=== PATIENT | male | born 1955 | race Caucasian/White ===

== ENCOUNTER → 2017-11-29 09:52 | Outpatient (CLI) | payer OTHER, SELFPAY ==
[2017-11-29 12:18] LABS: Anion Gap 6 (5-15); BUN 19 mg/dL (7-18); BUN/Creat Ratio 20.1 RATIO (10-20); Calcium,Total 8.8 mg/dL (8.5-10.1); Chloride 106 mmol/L (98-107); Cholesterol 158 mg/dL (200); Creatinine, Serum 0.95 mg/dL (0.70-1.30); EST Glomerular Filtration Rate 86 mL/min (>60); Est Glom Filt Rate - Afr Amer 104 mL/min (>60); Glucose 119 mg/dL (74-106); Hemoglobin A1c 7.1 % (4.2-6.3); High Density Lipoprotein 37 mg/dL; PSA,Total - Annual Screen 0.35 ng/mL (0.00-4.00); Potassium 3.7 mmol/L (3.5-5.1); Sodium Level 140 mmol/L (136-145); Triglycerides 81 mg/dL; Very Low Density Lipoprotein 16 mg/dL (5-40)
== END ==
PROVIDERS: Visit Provider Family Medicine
DX: E11.9 Type 2 diabetes mellitus without complications (principal); Z12.5 Encounter for screening for malignant neoplasm of prostate
CPT/HCPCS: 36415; 80048; 80061; 83036; 84153; G0103

== ENCOUNTER → 2018-11-27 | Outpatient (CLI) | payer OTHER, SELFPAY ==
[2017-03-02 06:31] VITALS: BMI 29.4
[2018-11-27 12:47] LABS: Anion Gap 7 (5-15); BUN 18 mg/dL (7-18); Calcium,Total 8.7 mg/dL (8.5-10.1); Chloride 106 mmol/L (98-107); Cholesterol 140 mg/dL (200); EST Glomerular Filtration Rate 81 mL/min (>60); Est Glom Filt Rate - Afr Amer 97 mL/min (>60); Glucose 239 mg/dL (74-106); High Density Lipoprotein 31 mg/dL; Potassium 4.1 mmol/L (3.5-5.1); Sodium Level 139 mmol/L (136-145); Triglycerides 201 mg/dL; Very Low Density Lipoprotein 40 mg/dL (5-40)
[2018-11-27 12:54] LABS: Hemoglobin A1c 8.3 % (4.2-6.3)
[2018-11-27 14:37] LABS: PSA,Total - Annual Screen 0.23 ng/mL (0.00-4.00)
== END | disposition home or self-care (01) ==
LOC: MFPLAB 10:58
PROVIDERS: PCP Family Medicine; Visit Provider Family Medicine
DX: E11.9 Type 2 diabetes mellitus without complications (principal); Z12.5 Encounter for screening for malignant neoplasm of prostate
CPT/HCPCS: 36415; 80048; 80061; 83036; 84153; G0103

== ENCOUNTER → 2019-09-03 10:09 | Outpatient (CLI) | payer OTHER, SELFPAY ==
[2017-03-02 06:31] VITALS: BMI 29.4
[2019-09-03 12:27] LABS: ALB/GLOB Ratio 1.2 RATIO (0.9-2.4); AST(SGOT) 14 U/L (15-37); Alanine Aminotransfer ALT/SGPT 26 U/L (16-61); Alkaline Phosphatase 78 U/L (45-117); Anion Gap 5 (5-15); BUN 19 mg/dL (7-18); BUN/Creat Ratio 18.8 RATIO (10-20); Calcium,Total 9.2 mg/dL (8.5-10.1); Chloride 105 mmol/L (98-107); Cholesterol 146 mg/dL (200); Creatinine, Serum 1.01 mg/dL (0.70-1.30); EST Glomerular Filtration Rate 79 mL/min (>60); Est Glom Filt Rate - Afr Amer 96 mL/min (>60); Globulin 3.3 g/dL (2.2-4.2); Glucose 181 mg/dL (74-106); High Density Lipoprotein 35 mg/dL; Potassium 3.6 mmol/L (3.5-5.1); Protein, Total 7.3 g/dL (6.4-8.2); Sodium Level 140 mmol/L (136-145); Triglycerides 149 mg/dL; Very Low Density Lipoprotein 30 mg/dL (5-40)
[2019-09-03 12:31] LABS: Hemoglobin A1c 8.8 % (4.2-6.3)
[2019-09-03 12:47] LABS: Microalbumin,Random Urine 10.7 mg/L (NO RANGE EST.); Microalbumin:Creatinine Ratio 11.2 mg/g CRE (<30 mg/g CRE)
== END ==
PROVIDERS: PCP Family Medicine; Referring Provider Family Medicine; Visit Provider Family Medicine
DX: E11.9 Type 2 diabetes mellitus without complications (principal); E66.9 Obesity, unspecified
CPT/HCPCS: 36415; 80053; 80061; 82043; 82570; 83036

== ENCOUNTER 2020-09-30 12:08 | Outpatient (CLI) | payer OTHER, SELFPAY ==
[2020-09-30 12:29] VITALS: BP 131/85; PULSE 69; RESP 18; TEMP 36.7; O2SAT 93; BMI 29.2
[2020-09-30 13:18] VITALS: BP 121/72; PULSE 62; RESP 16; TEMP 36.6; O2SAT 95
[2020-09-30 13:48] VITALS: BP 125/76; PULSE 59; RESP 16; TEMP 36.6; O2SAT 95
[2020-09-30 14:10] VITALS: BP 136/79; PULSE 60; RESP 16; TEMP 36.4; O2SAT 97
[2020-09-30 14:40] VITALS: BP 132/75; PULSE 58; RESP 16; TEMP 36.4; O2SAT 98
[2020-09-30 15:10] VITALS: BP 129/75; PULSE 61; RESP 16; TEMP 36.4; O2SAT 96
== END 2020-09-30 15:17 | disposition home or self-care (01) ==
LOC: MS2OUT 12:08 → MS2 12:08
PROVIDERS: PCP Family Medicine; Referring Provider Nurse Practitioner Acute Care; Visit Provider Nurse Practitioner Acute Care
DX: U07.1 COVID-19 (principal)
CPT/HCPCS: J7050; M0239; Q0245

== ENCOUNTER → 2023-06-13 | Outpatient (CLI) | payer MEDICARE, OTHER, SELFPAY | END | disposition home or self-care (01) | PROVIDERS: PCP Family Medicine; Visit Provider Nurse Practitioner | DX: T14.8XXA Other injury of unspecified body region, initial encounter (principal) | CPT/HCPCS: 87070; 87075; 87205 ==

== ENCOUNTER 2023-06-22 06:58 | Outpatient (RCR) | payer MEDICARE, OTHER, SELFPAY ==
[2023-06-22 08:17] VITALS: BP 177/67; PULSE 59; RESP 18; TEMP 36.1
--- NOTE | 2023-06-22 12:38 | PCM.WC.PN ---
History of Present Illness Date of Service: 06/22/23 Chief Complaint: Follow-up right fragoso traumatic wound History of Wound: This is a 68-year-old white male that was kicked in the fragoso by a steer and developed a open wound for about 3 to 4 weeks and I saw him in my office. That was 2 weeks ago. Patient was cultured which was negative and started on calcium alginate with Adaptic over top and compression stockings at that point I had Kaden wrap to him and told him to buy compression stockings. He states that he has been doing that and the measurements it looks good it still looks some depth and cleaning out still has some slough in it like it did the first time I met him. Progress of Wound: Today we are going to switch him over to Zulema with Adaptic over top and compression stockings Subjective Subjective Was agreeable Objective Data Objective Data The wound looks good has a little depth small amount of slough but nothing worsening. States the pain is better. And also wearing his compression stockings on a daily basis Vital Signs: Vital Signs Temp Pulse Resp BP 97 F L 59 L 18 177/67 H 06/22/23 08:17 06/22/23 08:17 06/22/23 08:17 06/22/23 08:17 Physical Exam Const oriented x3 General Appearance: cooperative Exam Limitations: no limitations HEENT normocephalic Head and Scalp: normal to inspection Eyes PERRL Resp normal respiratory effort Effort and Inspection: able to speak in complete sentences Auscultation: clear to auscultation bilaterally Cardio regular rate and regular rhythm Palpation: normal PMI Rate: regular rate Rhythm: regular rhythm GI Auscultation: normoactive bowel sounds Palpation: soft and no hepatosplenomegaly Extremity General Extremity: normal exam except as noted Skin no rashes or lesions noted Trauma: other Open wound nonhealing from a kick from a steer Neuro oriented x3 Psych Appearance: grossly normal Speech: normal speech Thought Content: normal thought content Judgement: judgement good Debridement Note Debridement Note Wound debrided: Right fragoso traumatic wound Type of Debridement: Excisional debridement Anesthesia Used: 5% Lidocaine Gel Depth: Down to and including healthy tissue Percentage of wound debrided: 100 Instrument Used: 3mm curette Tissue Removed: Slough Severity: Fat Layer Exposed Amount of bleeding with debridement: Mild Bleeding Controlled with: Compression and gauze Patient tolerated procedure: Patient tolerated procedure well Post-Debridement Measurements and Additional Note: Post-Debridement Measurements/Treatment WC - Nurse 1 - General Ulcer Assessment Start: 06/22/23 08:16 Freq: Status: Active Protocol: DANIELA Activity Type Activity Date Activity User E-sign Co-sign Detail Recorded Client Recorded Date Recorded By Document 06/22/23 08:17 RB Desktop 06/22/23 08:32 RB 06/22/23 08:17 WC - Today's Visit Information Type of service Initial Visit Arrival Mode Ambulatory Transfer Assistance None Patient Identification Verified (Name & Yes ) Patient Requires Transmission-Based No Precautions Vital Signs Temperature (97.8 F-99.1 F) 97 F L Temperature Source Temporal Pulse Rate (60-100) 59 L Pulse Location Monitor Respiratory Rate (12-18) 18 Respiratory rate source Observation Blood Pressure (90/60-120/80) 177/67 H Blood Pressure Mean (mm Hg) 103 Source Monitor Position Semi-Fowlers Blood Pressure Location Left Arm History Since Last Visit- (Skip if this is Patient's initial visit) Have you changed medications since your No last visit? Any new allergies or adverse reactions No Had a fall/change in ADL's that may No increase risk of falls Signs or symptoms of abuse and/or No neglect since last visit Have you been in the hospital since your No last visit? Has dressing in place as prescribed Yes Has compression in place as prescribed No Has offloadiing in place as prescribed No Experienced any changes in pain level or No management Pain Scale: 0-10 Numeric Is Patient Pain Free? Yes Lower Extremity Assessment/ Foot Assessment/ Toe Nail Assessment Right -Posterior Tibial Palpable Yes -Posterior Tibial Doppler Multiphasic -Dorsalis Pedis Palpable Yes -Dorsalis Pedis Doppler Multiphasic -Extremity Color Normal -Hair Growth on Legs Yes -Hair Growth on Toes No -Temperature of Extremity Warm -Capillary Refill Less than 3 Seconds -Dependent Rubor No -Blanched when Elevated No -Lipodermatosclerosis No -Other Deformity No -Prior Foot Ulcer No -Charcot Joint No -Prior Amputation No -Thick No -Discolored No -Deformed No -Improper Length & Hygeine Yes Left -Posterior Tibial Palpable Yes -Posterior Tibial Doppler Multiphasic -Dorsalis Pedis Palpable Yes -Dorsalis Pedis Doppler Multiphasic -Extremity Color Normal -Hair Growth on Legs Yes -Hair Growth on Toes No -Temperature of Extremity Warm -Capillary Refill Less than 3 Seconds -Dependent Rubor No -Blanched when Elevated No -Lipodermatosclerosis No -Other Deformity No -Prior Foot Ulcer No -Charcot Joint No -Prior Amputation No -Thick No -Discolored No -Deformed No -Improper Length & Hygeine Yes Neuropathy Assessment Feet - Top Side and Bottom <Entered> (a) Communication Assessment Preferred language Citizen Of [place] Structural Layout Worker Required No Able to Read Yes Able to Write Yes Communication Tools None Caregiver Communication Skills No Impairment Impairment Right Hearing Abillity Normal Left Hearing Abillity Normal Visual Assistive Devices Glasses Teaching Assessment Preferences Verbal,Written Barriers to Learning None Readiness To Learn Good Willingness to Engage in Self Management Med Activies Readiness to Engage in Self Management Med Activities Anxiety Level Calm Cooperation Cooperative Perception Coherent Interest in Health Problem Asks Questions Education Importance Acknowledges Need Does Patient Smoke tobacco or other No substances Smoking Status Never smoker Is Patient Diabetic Yes Functional Assessment Recent Decline in Ability to Perform Denies Any Declines Assistive Device With Patient No Culture/[place]ian/Care Management Coordinator Cultural/[place]eterian Needs that may affect No Treatment Plan Would you allow our hospital combined rail operator to No meet you for the purpose of spiritual/ emotional support? Care Management Coordinator to contact place of synagogue No Teaching: Wound Center *Welcome to the Wound Center -Person Taught Patient -Teaching Method Discussion, Demonstration -Response to teaching Verbalize understanding (a) 1 - + throughout WC - Nurse 1 - General Ulcer Measurement Start: 06/22/23 08:16 Freq: Status: Active Protocol: Activity Type Activity Date Activity User E-sign Co-sign Detail Recorded Client Recorded Date Recorded By Document 06/22/23 08:17 Desktop 06/22/23 08:32 RB 06/22/23 08:17 Wound Center Nurse 1 1.R fragoso -Combined with other wound No -Current Size (cm) - Length 0.6 -Current Size (cm) - Width 0.8 -Current Size (cm) - Depth 0.2 -Total Square Cm 0.48 -Photo Taken Yes -Tunneling No -Undermining/Tunneling No -Circular Undermining No -Exudate Amt Medium -Exudate Type Serosanguineous -Wound Margin Distinct, Outline Attached -Granulation Amt Medium (34-66%) -Granulation Quality [place] -Slough/Fibrin Yes -Necrosis Amt Medium (34-66%) -Necrotic Tissue Type Adherent Slough -Structure Exposed N/A -Texture (Bobbi-wound Skin Appearance) Assessed -Moisture (Bobbi-wound Skin Appearance) Assessed -Color (Bobbi-wound Skin Appearance) Assessed, Erythema -Temperature (Bobbi-wound Skin No Abnormality Appearance) (Pt Warm) -Tenderness on Palpation (Bobbi-wound No Skin Appearance) -Ulcer Cleansing Wound Cleanser -Foul Odor after Cleansing No -Anesthetic Used 5% Lidocaine Gel Lower Limb Edema Present Yes Right Calf (cm) 39.5 Right Ankle (cm) 23.5 Left Calf (cm) 41 Left Ankle (cm) 23.5 RIAZ - Nurse 2 - General Ulcer CM Notes Start: 06/22/23 08:16 Freq: Status: Active Protocol: Activity Type Activity Date Activity User E-sign Co-sign Detail Recorded Client Recorded Date Recorded By Document 06/22/23 08:43 RB Desktop 06/22/23 08:46 RB 06/22/23 08:43 Wound Center Nurse 2 1.R fragoso -Time 08:44 -Correct Patient Yes -Correct Side, Site, Position Yes -Correct Procedure Yes -Procedure Performed Yes -Type of Procedure Debridement -Clinical Debridement Subcutaneous -Tissue Removed Subcutaneous -Post Debridement (cm) - Length 0.6 -Post Debridement (cm) - Width 0.9 -Post Debridement (cm) - Depth 0.2 -Total Square (Post) (cm) 0.54 -Area of Debridement (cm) - Length 0.6 -Area of Debridement (cm) - Width 0.9 -Total Square (Area) (cm) 0.54 -Tunneling No -Undermining/Tunneling No -Circular Undermining No -Wound/Ulcer Outcome Not Healed -Ulcer Cleansing Rinsed/ Irrigated with Saline -Foul Odor after Cleansing No -Bioengineered Tissue No -Bleeding Controlled with Pressure -Treatment Response Procedure Tolerated Well -Offloading No -Debridement - Subq, 1st 20sq cm Yes Pain Scale: 0-10 Numeric Is Patient Pain Free? Yes - Nurse 3 - General Ulcer D/C NN Start: 06/22/23 08:16 Freq: Status: Active Protocol: Activity Type Activity Date Activity User E-sign Co-sign Detail Recorded Client Recorded Date Recorded By Document 06/22/23 08:54 RB Desktop 06/22/23 08:55 RB 06/22/23 08:54 Wound Care Center Nurse 3 1.R fragoso -Ulcer Cleansing Not Cleansed -Foul Odor after Cleansing No -Primary Dressing Applied Mepilex Border, NonAdherent Contact Layer, Promogran -Mepilex Border 1 -Promogran 1 Pain Scale: 0-10 Numeric Is Patient Pain Free? Yes Teaching: Wound Center Keeping legs elevated -Person Taught Patient -Teaching Method Discussion -Response to teaching Verbalize understanding Dressing Your Wound -Person Taught Patient -Teaching Method Discussion, Demonstration -Response to teaching Verbalize understanding WC - Visit Discharge Discharge Condition Stable Ambulatory Status Ambulatory Transportation Private Auto Medication Reconcilliation completed & Yes provided to patient/care provider Clinical Summary of Care Provided Yes Assessment/Plan Assessment/Plan (1) Traumatic skin ulcer with fat layer exposed: CODE(S): L98.492 - Non-pressure chronic ulcer of skin of other sites with fat layer exposed (2) Nonhealing nonsurgical wound: CODE(S): T14.8XXA - Other injury of unspecified body region, initial encounter PLAN: Wash right fragoso with antibacterial soap and water apply the Zulema to the wound base cover with Adaptic and then I a foam dressing every day Wear compression stockings every day Follow-up in 3 weeks
== END 2023-06-30 23:59 | disposition home or self-care (01) ==
LOC: WC 06:58
PROVIDERS: PCP Family Medicine; Referring Provider Family Medicine; Visit Provider Nurse Practitioner
DX: L97.812 Non-pressure chronic ulcer of other part of right lower leg with fat layer exposed (principal); Z79.4 Long term (current) use of insulin; W55.22XA Struck by cow, initial encounter; Z79.899 Other long term (current) drug therapy
CPT/HCPCS: 11042; 99203; G0463

== ENCOUNTER 2023-07-13 08:01 | Outpatient (RCR) | payer MEDICARE, OTHER, SELFPAY ==
[2023-07-01 00:51] VITALS: BP 177/67; PULSE 59; RESP 18; TEMP 36.1
[2023-07-13 08:06] VITALS: BP 158/102; PULSE 63; RESP 20; TEMP 36.4
--- NOTE | 2023-07-13 09:57 | PN.PCM_ITS ---
History of Present Illness Date of Service: 07/13/23 Chief Complaint: Follow-up right fragoso traumatic wound History of Wound: This is a 68-year-old white male that was kicked in the fragoso by a steer and developed a open wound for about 3 to 4 weeks and I saw him in my office. That was 2 weeks ago. Patient was cultured which was negative and started on calcium alginate with Adaptic over top and compression stockings at that point I had Kaden wrap to him and told him to buy compression stockings. He states that he has been doing that and the measurements it looks good it still looks some depth and cleaning out still has some slough in it like it did the first time I met him. Progress of Wound: Today the wound is healed patient be discharged from the wound center. Subjective Subjective Patient is very pleased with outcomes and has no concerns Objective Data Objective Data Objectives of met patient has resolved on his wound patient will be discharged from the wound center and follow-up as needed Vital Signs: Vital Signs Temp Pulse Resp BP 97.6 F L 63 20 H 158/102 H 07/13/23 08:06 07/13/23 08:06 07/13/23 08:06 07/13/23 08:06 Physical Exam Const oriented x3 General Appearance: cooperative Exam Limitations: no limitations HEENT normocephalic Head and Scalp: normal to inspection Eyes PERRL Resp normal respiratory effort Effort and Inspection: able to speak in complete sentences Auscultation: clear to auscultation bilaterally Cardio regular rate and regular rhythm Palpation: normal PMI Rate: regular rate Rhythm: regular rhythm GI Auscultation: normoactive bowel sounds Palpation: soft and no hepatosplenomegaly Extremity General Extremity: normal exam except as noted Skin no rashes or lesions noted Trauma: other Open wound nonhealing from a kick from a steer Neuro oriented x3 Psych Appearance: grossly normal Speech: normal speech Thought Content: normal thought content Judgement: judgement good Debridement Note Debridement Note No debridement was completed: No debridement was completed today Post-Debridement Measurements and Additional Note: Post-Debridement Measurements/Treatment RIAZ - Nurse 1 - General Ulcer Assessment Start: 07/13/23 08:06 Freq: Status: Active Protocol: DANIELA Activity Type Activity Date Activity User E-sign Co-sign Detail Recorded Client Recorded Date Recorded By Document 07/13/23 08:06 DL Desktop 12/13/23 08:10 07/13/23 08:06 - Today's Visit Information Type of service Follow-up 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 Any new allergies or adverse reactions No Had a fall/change in ADL's that may No increase risk of falls Signs or symptoms of abuse and/or No neglect since last visit Have you been in the hospital since your No last visit? Has dressing in place as prescribed Yes Has compression in place as prescribed Yes Has offloadiing in place as prescribed N/A Experienced any changes in pain level or No management Pain Scale: 0-10 Numeric Is Patient Pain Free? Yes - Nurse 1 - General Ulcer Measurement Start: 07/13/23 08:06 Freq: Status: Active Protocol: Activity Type Activity Date Activity User E-sign Co-sign Detail Recorded Client Recorded Date Recorded By Document 07/13/23 08:06 Desktop 07/13/23 08:10 07/13/23 08:06 Wound Center Nurse 1 1.R fragoso -Current Size (cm) - Length 0.2 -Current Size (cm) - Width 0.2 -Current Size (cm) - Depth 0.1 -Total Square Cm 0.04 -Photo Taken No -Exudate Amt Small -Exudate Type Serosanguineous -Wound Margin Distinct, Outline Attached -Granulation Amt Small (1-33%) -Granulation Quality Pale -Necrosis Amt Small (1-33%) -Necrotic Tissue Type Adherent Slough -Structure Exposed N/A -Texture (Bobbi-wound Skin Appearance) Scarring -Moisture (Bobbi-wound Skin Appearance) No Abnormality -Color (Bobbi-wound Skin Appearance) No Abnormality -Temperature (Bobbi-wound Skin No Abnormality Appearance) (Pt Warm) -Tenderness on Palpation (Bobbi-wound No Skin Appearance) -Ulcer Cleansing Rinsed/ Irrigated with Saline -Foul Odor after Cleansing No -Anesthetic Used 5% Lidocaine Gel Left Calf (cm) 38.5 Left Ankle (cm) 23.7 WC - Nurse 2 - General Ulcer CM Notes Start: 07/13/23 08:06 Freq: Status: Active Protocol: Activity Type Activity Date Activity User E-sign Co-sign Detail Recorded Client Recorded Date Recorded By Document 07/13/23 08:29 MW Desktop 07/13/23 08:30 MW 07/13/23 08:29 Wound Center Nurse 2 1.R fragoso -Time 08:29 -Correct Patient Yes -Correct Side, Site, Position Yes -Correct Procedure Yes -Procedure Performed No -Post Debridement (cm) - Length 0 -Post Debridement (cm) - Width 0 -Post Debridement (cm) - Depth 0 -Total Square (Post) (cm) 0 -Wound/Ulcer Outcome Healed- Epithelialized Pain Scale: 0-10 Numeric Is Patient Pain Free? Yes WC - Nurse 3 - General Ulcer D/C NN Start: 07/13/23 08:06 Freq: Status: Active Protocol: Activity Type Activity Date Activity User E-sign Co-sign Detail Recorded Client Recorded Date Recorded By Document 07/13/23 08:38 DL Desktop 07/13/23 08:38 DL 07/13/23 08:38 Wound Care Center Nurse 3 1.R fragoso -Ulcer Cleansing Rinsed/ Irrigated with Saline -Foul Odor after Cleansing No -Primary Dressing Applied Mepilex Border, Promogran Zulema Matter -Mepilex Border 1 -Promogran Zulema Matter 1 Treatment Response Procedure Tolerated Well Pain Scale: 0-10 Numeric Is Patient Pain Free? Yes WC - Visit Discharge Discharge Condition Stable Ambulatory Status Ambulatory Transportation Private Auto Assessment/Plan Assessment/Plan (1) Traumatic skin ulcer with fat layer exposed: CODE(S): L98.492 - Non-pressure chronic ulcer of skin of other sites with fat layer exposed (2) Nonhealing nonsurgical wound: CODE(S): T14.8XXA - Other injury of unspecified body region, initial encounter PLAN: Discharge from the wound center and follow-up as needed
== END 2023-07-14 16:14 | disposition home or self-care (01) ==
LOC: WC 08:01
PROVIDERS: PCP Family Medicine; Referring Provider Family Medicine; Visit Provider Nurse Practitioner
DX: Z09 Encounter for follow-up examination after completed treatment for conditions other than malignant neoplasm (principal); Z79.4 Long term (current) use of insulin
CPT/HCPCS: 99213; G0463

== ENCOUNTER 2025-02-22 06:19 | Day surgery (SDC) | payer MEDICARE, OTHER, SELFPAY ==
[2025-02-22] VITALS (8 sets, daily range): BP systolic 92–156; BP diastolic 59–80; PULSE 55–71; RESP 16–18; TEMP 36.3–36.8; O2SAT 94–96; BMI 30.8
--- OUTSIDE RECORDS SUMMARY | 2025-02-22 06:22 | XMS RPT_ITS | CCD ---
Author Organization [facility] Inform ion Partnership [facility] Care Team Providers Care Supervisor Throwing Department Name Role Phone Troy Monsivais MD Unavailable Keerthi Lyon Unavailable Unavailable Michaela Perry Unavailable Dot Trejo Unavailable Unavailable Keith ALLISON, Grecia Abad Primary Care Provider Keith ALLISON, Grecia Abad Primary Care Provider Keith ALLISON, Grecia Abad Primary Care Provider Keith ALLISON, Grecia Abad Primary Care Provider Keith ALLISON, Grecia Abad Primary Care Provider Kiersten ALLISON, Elizabeth Primary Care Provider [phone] TYRONE GAY Attending Unavailable GRECIA REYES Primary Care Unavailable TYRONE GAY Attending Unavailable KIERSTEN, CHALON Primary Care Unavailable TYRONE GAY Attending Unavailable KIERSTEN, CHALON Primary Care Unavailable TYRONE GAY Attending Unavailable KIERSTEN, CHALON Primary Care Unavailable TYRONE GAY Referring Unavailable KIERSTEN, CHALON Primary Care Unavailable Kiersten, Chalon Primary Care Unavailable Troy Monsivais Attending Unavailable Kiersten, Deangeloon Referring Unavailable Kiersten, Chalon Referring Unavailable Kiersten, Chalon Attending Unavailable Kiersten, Chalon Primary Care Unavailable Allergies Allergy Classification Reported Allergen(s) Allergy Type Date of Onset Reaction(s) Facility (6 sources) amoxicillin / clavulanate drug allergy 02-10-2017 rash [facility] Work Phone: (20 sources) cephalexin; Translations: [CEPHALEXIN] drug allergy 03-27-2014 Iam [facility] Work Phone: (6 sources) Penicillins (Antibiotic) drug allergy 02-10-2017 rash [facility] Work Phone: (5 sources) Penicillins; Translations: [PENICILLINS] Drug Allergy 03-27-2014 [facility] (20 sources) Penicillins Drug Allergy 03-27-[address] [facility] (3 sources) Amoxicillin Drug Allergy 09-30-2020 [facility] (3 sources) Clavulanate Drug Allergy 09-30-2020 [facility] (3 sources) Penicillins Allergy to substance 09-30-2020 [facility] (16 sources) Lisinopril; Translations: [LISINOPRIL] Drug Allergy 07-27-2023 [facility] Work Phone: (3 sources) Penicillins Drug Allergy 03-27-2014 [facility] (1 source) Amoxicillin Drug Allergy 02-19-2025 [facility] (1 source) Clavulanate Drug Allergy 02-19-2025 [facility] (1 source) Penicillins Drug allergy (disorder) 02-19-2025 [facility] Medications Current Medications Medication Drug Class(es) Dates Sig (Normalized) Sig (Original) amLODIPine 5 mg oral tablet (17 sources) Dihydropyridine Calcium Channel Amara Start: 09-09-2023 End: 04-17-2024 take 1 tablet by mouth once daily amLODIPine (NORVASC) 5 mg tablet Indications: Primary hypertension Take 1 tablet by mouth once daily. 90 tablet 3 04/17/2024 Active Comment on above: Take 1 tablet by gigi once daily. Blood-Glucose Meter,Continuous (DEXCOM G6 CEMENT MASON HELPER) misc (20 sources) Start: 11-02-2022 Blood-Glucose Meter,Continuous (DEXCOM G6 CEMENT MASON HELPER) misc Use continuously to monitor glucose, IDDM, E 10.9 1 Each 11/02/2022 Active Start: 11-02-2022 Blood-Glucose Meter,Continuous (DEXCOM G6 CEMENT MASON HELPER) misc Use continuously to monitor glucose, IDDM, E 10.9 1 Each 0 11/02/2022 Active Comment on above: Use continuously to monitor glucose, IDDM, E 10.9 Blood-Glucose Sensor (DEXCOM G6 SENSOR) marquis (20 sources) Start: 09-09-2023 Blood-Glucose Sensor (DEXCOM G6 SENSOR) marquis Indications: Type 1 diabetes mellitus with hypoglycemia and without coma (HCC) Use one sensor every 10 days, IDDM, E 10.9 3 Each 11 09/09/2023 Active Start: 11-02-2022 End: 09-09-2023 Blood-Glucose Sensor (DEXCOM G6 SENSOR) marquis Use one sensor every 10 days, IDDM, E 10.9 3 Each 11 11/02/2022 09/09/2023 Discontinued Start: 11-02-2022 Blood-Glucose Sensor (DEXCOM G6 SENSOR) marquis Use one sensor every 10 days, IDDM, E 10.9 3 Each 11 11/02/2022 Active Comment on above: Use one sensor every 10 days, IDDM, E 10.9 Blood-Glucose Transmitter (DEXCOM G6 TRANSMITTER) marquis (20 sources) Start: 09-09-2023 Blood-Glucose Transmitter (DEXCOM G6 TRANSMITTER) marquis Indications: Type 1 diabetes mellitus with hypoglycemia and without coma (HCC) Use one transmitter every 3 months, IDDM, E 10.9 1 Each 09/09/2023 Active Start: 11-02-2022 End: 09-09-2023 Blood-Glucose Transmitter (D EXCOM G6 TRANSMITTER) marquis Use one transmitter every 3 months, IDDM, E 10.9 1 Each 11/02/2022 09/09/2023 Discontinued Start: 11-02-2022 Blood-Glucose Transmitter (DEXCOM G6 TRANSMITTER) marquis Use one transmitter every 3 months, IDDM, E 10.9 1 Each 11/02/2022 Active Comment on above: Use one transmitter every 3 months, IDDM, E 10.9 clindamycin 300 mg oral capsule (1 source) Lincosamide Antibacterial Start: 2022 End: 2022 take 1 capsule by mouth three times daily clindamycin (CLEOCIN) 300 mg capsule Take 1 capsule by mouth three times a day for 7 days. 21 capsule 0 05/30/2023 06/06/2023 Active Comment on above: Take 1 capsule by [facility] three times a day for 7 days. glucagon 3 mg nasal powder (20 sources) Antihypoglycemic Agent Start: 2022 End: 2023 glucagon (BAQSIMI) 3 mg/actuation nasal spray Indications: Type 1 diabetes mellitus with hypoglycemia and without coma (HCC) Use 1 Hext in the nose as needed. May repeat after 15 minutes using a new device if there is no response. 2 Each 2 09/09/2023 Active Comment on above: Use 1 Hext in the n ose as needed. May repeat after 15 minutes using a new device if there is no response. 1.5 ml insulin glargine 300 unt/ml pen injector (20 sources) Insulin Analog Start: 2024 inject 8 [IU] by subcutaneous injection once daily in the morning insulin glargine U-300 conc (TOUJEO SOLOSTAR U-300 INSULIN) 300 unit/mL (1.5 mL) Inject 8 Units subcutaneously every morning. If insulin pump fails 1.5 mL 1 10/19/2024 Active Start: 09-24-2022 End: 10-19-2024 inject 10 [IU] by subcutaneous injection once daily in the morning insulin glargine U-300 conc (TOUJEO SOLOSTAR U-300 INSULIN) 300 unit/mL (1.5 mL) Indications: Type 1 diabetes mellitus without complication (HCC) Inject 10 Units subcutaneously every morning. If insulin pump fails 3 Each 3 12/01/2022 10/19/2024 Discontinued Start: 05-28-2022 End: 09-24-2022 inject 14 [IU] by subcutaneous injection once daily in the morning insulin glargine U-300 conc (TOUJEO SOLOSTAR U-300 INSULIN) 300 unit/mL (1.5 mL) Indications: Type 1 diabetes mellitus without complication (HCC) Inject 14 Units subcutaneously every morning. 3 Each 3 05/28/2022 09/24/2022 Discontinued (Adjust Sig - Block E-Cancel) Start: 11-25-2021 End: 05-28-2022 inject 12 [IU] by subcutaneous injection once daily in the morning insulin glargine U-300 conc (TOUJEO SOLOSTAR U-300 INSULIN) 300 unit/mL (1.5 mL) Indications: Type 1 diabetes mellitus without complication (HCC) Inject 12 Units subcutaneously every morning. 3 Pen 3 11/25/2021 05/28/2022 Discontinued Start: 05-20-2021 End: 11-25-2021 inject 15 [IU] by subcutaneous injection once daily at bedtime insulin glargine U-300 conc (TOUJEO SOLOSTAR U-300 INSULIN) 300 unit/mL (1.5 mL) Indications: Type 1 diabetes mellitus without complication (HCC) Inject 15 Units subcutaneously daily at bedtime. 6 Pen 3 05/20/2021 11/25/2021 Discontinued Start: 09-29-2020 Insulin Glargi ne U-300 Conc (Toujeo Max U-300 Solostar) 300 unit/mL (3 mL) insulin pen Active 18 UNIT SC DAILY September 29, 2020 12:00am Comment on above: Inject 15 Units subc utaneously daily at bedtime. Inject 12 Units subc utaneously every morning. Inject 14 Units subc utaneously every morning. Inject 10 Units subc utaneously every morning. Inject 10 Units subc utaneously every morning. If insulin pump fails 3 ml insulin lispro 100 unt/ml pen injector (20 sources) Insulin Analog Start: 09-09-2023 End: 04-17-2024 insulin lispro (HUMALOG U-100 INSULIN) 100 unit/mL injection Indications: Type 1 diabetes mellitus with hypoglycemia and without coma (HCC) Infuse up to 100 units daily via insulin pump 30 mL 11 04/17/2024 Active Start: 11-17-2022 End: 09-09-2023 insulin lispro (HUMALOG U-10 0 INSULIN) 100 unit/mL injection Infuse up to 100 units daily via insulin pump 30 mL 11 11/17/2022 09/09/2023 Discontinued Start: 08-10-2021 End: 10-19-2024 insulin lispro (HUMALOG KWIK PEN INSULIN) 100 unit/mL inject subcutaneously PER RATIO: BREAKFAST 1:5, LUNCH 1:8, DINNER1:6 PLUS SLIDING SCALE *MAX DAILY DOSE 60 UNITS*; if insulin pump fails 15 mL 1 10/19/2024 Active Start: 09-29-2020 Insulin Lispro (Humalog U-100 Insulin) 100 unit/mL cartridge Active 1 sliding scale dose SC Use as Directed September 29, 2020 12:00am Comment on above: inject subcutaneousl y PER RATIO: BREAKFAST 1:8, LUNCH 1:10, DINNER1:10 PLUS SLIDING SCALE *MAX DAILY DOSE 30 UNITS* inject subcutaneousl y PER RATIO: BREAKFAST 1:8, LUNCH 1:10, DINNER1:10 PLUS SLIDING SCALE *MAX DAILY DOSE 50 UNITS* inject subcutaneousl y PER RATIO: BREAKFAST 1:6, LUNCH 1:10, DINNER1:12 PLUS SLIDING SCALE *MAX DAILY DOSE 60 UNITS* Infuse up to 100 uni ts daily via insulin pump inject subcutaneousl y PER RATIO: BREAKFAST 1:6, LUNCH 1:10, DINNER1:12 PLUS SLIDING SCALE *MAX DAILY DOSE 60 UNITS*; if insulin pump fails insulin pump cart,auto,BT,G6/7 (OMNIPOD 5 G6-G7 PODS, GEN 5,) crtg (8 sources) Start: 08-21-2024 insulin pump cart,auto,BT,G6/7 (OMNIPOD 5 G6-G7 PODS, GEN 5,) crtg Indications: Type 1 diabetes mellitus with hypoglycemia and without coma (HCC) Use one pod every 72 hr 10 Each 11 08/21/2024 Active Start: 07-18-2024 End: 08-21-2024 insulin pump cart,auto,BT,G6 /7 (OMNIPOD 5 G6-G7 PODS, GEN 5,) crtg Indications: Type 1 diabetes mellitus with hypoglycemia and without coma (HCC) Use one pod every 72 hr 10 Each 11 07/18/2024 08/21/2024 Discontinued Start: 07-18-2024 insulin pump c art,auto,BT,G6/7 (OMNIPOD 5 G6-G7 PODS, GEN 5,) crtg Indications: Type 1 diabetes mellitus with hypoglycemia and without coma (HCC) Use one pod every 72 hr 10 Each 11 07/18/2024 Active lisinopril 20 mg oral tablet (9 sources) Angiotensin Converting Enzyme Inhibitor Start: 06-22-2023 take 20 mg by mouth once daily Lisinopril Active 20 MG PO DAILY June 22, 2023 12:00am Start: 04-29-2023 take 1 tablet by gigi th once daily lisinopril (ZESTRIL) 20 mg tablet Indications: Type 1 diabetes mellitus without complication (HCC) , Primary hypertension Take 1 tablet by mouth once daily. 90 tablet 3 04/29/2023 Active Start: 01-25-2023 End: 04-29-2023 take 1 tablet by mouth once daily lisinopril (ZESTRIL) 5 mg tablet Indications: Type 1 diabetes mellitus without complication (HCC) , Primary hypertension Take 1 tablet by mouth once daily. 90 tablet 3 01/25/2023 04/29/2023 Discontinued Comment on above: Take 1 tablet by gigi th once daily. valsartan 320 mg oral tablet (16 sources) Angiotensin 2 Receptor Amara Start: 3 End: take 1 tablet by mouth once daily valsartan (DIOVAN) 320 mg tablet Indications: Primary hypertension Take 1 tablet by mouth once daily. 90 tablet 3 04/17/2024 Active Comment on above: Take 1 tablet by gigi th once daily. Completed/Discontinued Medications Medication Drug Class(es) Dates Sig (Normalized) Sig (Original) acetaminophen 325 mg / oxyCODONE hydrochloride 5 mg oral tablet (3 sources) Opioid Agonist Start: 03-02-2017 End: 09-29-2020 take 1 tablet by mouth every four hours as needed Oxycodone-Acetamin ophen Discontinued 1 - 2 TABLET PO EVERY 4 HOURS NEEDED 40 March 01, 2017 11:00pm September 29, 2020 2:02pm empagliflozin 25 mg oral tablet (10 sources) Sodium-Glucose Cotransporter 2 Inhibitor Start: 02-23-2017 End: 09-29-2020 take 25 mg by mouth once daily Empagliflozin Discontinued 25 MG PO DAILY February 22, 2017 11:00pm September 29, 2020 2:02pm flash glucose scanning reader (FREESTYLE ERICA 2 READER) (15 sources) Start: 01-27-2021 End: 12-01-2022 flash glucose scanning reader (FREESTYLE ERICA 2 READER) Indications: Type 1 diabetes mellitus without complication (HCC) Use 4x daily and PRN, IDDM, E 10.65 1 Each 0 01/27/2021 12/01/2022 Discontinued Start: 01-27-2021 flash glucose scanning reader (FREESTYLE ERICA 2 READER) Indications: Type 1 diabetes mellitus without complication (HCC) Use 4x daily and PRN, IDDM, E 10.65 1 Each 0 01/27/2021 Active Comment on above: Use 4x daily and PRN , IDDM, E 10.65 flash glucose sensor (FREESTYLE ERICA 2 SENSOR) kit (16 sources) Start: 09-24-2022 End: 12-01-2022 flash glucose sensor (FREESTYLE ERICA 2 SENSOR) kit Indications: Type 1 diabetes mellitus without complication (HCC) Use one sensor every 14 days, IDDM, E 10.65 6 Each 3 09/24/2022 12/01/2022 Discontinued Start: 09-24-2022 flash glucose sensor (FREESTYLE ERICA 2 SENSOR) kit Indications: Type 1 diabetes mellitus without complication (HCC) Use one sensor every 14 days, IDDM, E 10.65 6 Each 3 09/24/2022 Active Start: 08-05-2021 End: 09-24-2022 flash glucose sensor (FREEST YLE ERICA 2 SENSOR) kit Indications: Type 1 diabetes mellitus without complication (HCC) Use one sensor every 14 days, IDDM, E 10.65 6 Each 3 08/05/2021 09/24/2022 Discontinued Start: 08-05-2021 flash glucose sensor (FREESTYLE ERICA 2 SENSOR) kit Indications: Type 1 diabetes mellitus without complication (HCC) Use one sensor every 14 days, IDDM, E 10.65 6 Each 3 08/05/2021 Active Comment on above: Use one sensor every 14 days, IDDM, E 10.65 lactobacillus acidophilus 460 mg oral capsule (9 sources) Start: 05-30-20 End: 01-12-20 take 1 capsule by mouth once daily Lactobacillus acidophilus (FLORAJEN ACIDOPHILUS) 20 billion cell capsule Take 1 capsule by mouth once daily. 30 capsule 0 05/30/2023 01/12/2024 Discontinued Comment on above: Take 1 capsule by [facility] once daily. metFORMIN hydrochloride 1000 mg oral tablet (20 sources) Biguanide Start: 11-12-19 End: 01-26-20 take 1 tablet by mouth twice daily at mealtime metFORMIN (GLUCOPHAGE) 1,000 mg tablet Indications: Type 1 diabetes mellitus without complication (HCC) Take 1 tablet by mouth twice daily with meals. 180 tablet 3 09/24/2022 01/25/2023 Discontinued Start: 02-10-2017 End: 06-22-2023 take 500 mg by mouth twice daily Metformin Discontinued 500 MG PO TWICE A DAY February 22, 2017 11:00pm June 22, 2023 9:03am Comment on above: Take 1 tablet by [facility] twice daily with meals. OMNIPOD 5 G6 INTRO KIT, GEN 5, crtg (20 sources) Start: 11-02-2022 End: 10-19-2024 OMNIPOD 5 G6 INTRO KIT, GEN 5, crtg Inject 1 Each subcutaneously as directed. Each 11/02/2022 10/19/2024 Discontinued Start: 11-02-2022 OMNIPOD 5 G6 I NTRO KIT, GEN 5, crtg Inject 1 Each subcutaneously as directed. 1 Each 11/02/2022 Active Start: 11-02-2022 OMNIPOD 5 G6 I NTRO KIT, GEN 5, crtg Inject 1 Each subcutaneously as directed. 1 Each 0 11/02/2022 Active Comment on above: Inject 1 Each subcut aneously as directed. OMNIPOD 5 G6 PODS, GEN 5, crtg (20 sources) Start: 12-20-2023 End: 07-18-2024 OMNIPOD 5 G6 PODS, GEN 5, crtg Indications: Type 1 diabetes mellitus with hypoglycemia and without coma (HCC) Inject 1 Each subcutaneously every 72 hours. (use one pod every 72 hours) 10 Each 12/20/2023 07/18/2024 Discontinued Start: 12-20-2023 OMNIPOD 5 G6 P ODS, GEN 5, crtg Indications: Type 1 diabetes mellitus with hypoglycemia and without coma (HCC) Inject 1 Each subcutaneously every 72 hours. (use one pod every 72 hours) 10 Each 12/20/2023 Active Start: 09-09-2023 End: 12-20-2023 OMNIPOD 5 G6 PODS, GEN 5, cr tg Indications: Type 1 diabetes mellitus with hypoglycemia and without coma (HCC) Inject 1 Each subcutaneously every 72 hours. (use one pod every 72 hours) 10 Each 09/09/2023 12/20/2023 Discontinued Start: 09-09-2023 OMNIPOD 5 G6 P ODS, GEN 5, crtg Indications: Type 1 diabetes mellitus with hypoglycemia and without coma (HCC) Inject 1 Each subcutaneously every 72 hours. (use one pod every 72 hours) 10 Each 09/09/2023 Active Start: 11-02-2022 End: 09-09-2023 OMNIPOD 5 G6 PODS, GEN 5, cr tg Inject 1 Each subcutaneously every 72 hours. (use one pod every 72 hours) 10 Each 11/02/2022 09/09/2023 Discontinued Start: 11-02-2022 OMNIPOD 5 G6 P ODS, GEN 5, crtg Inject 1 Each subcutaneously every 72 hours. (use one pod every 72 hours) 10 Each 11 11/02/2022 Active Comment on above: Inject 1 Each subcut aneously every 72 hours. (use one pod every 72 hours) Problems Active Problems Problem Classification Problem Date Documented Da te Episodic/Chronic Chronic ulcer of skin (6 sources) Traumatic skin ulcer; Translations: [Non-pressure chronic ulcer of skin of other sites with fat layer exposed] 06-15-2023 Chronic Diabetes mellitus with complications (20 sources) Hypoglycemia due to type 1 diabetes mellitus; Translations: [Type 1 diabetes mellitus with hypoglycemia without coma] Onset: 01-25-2023 Chronic Diabetes mellitus without complication (20 sources) Type 2 diabetes mellitus; Translations: [Type 1 diabetes mellitus without complication] Onset: 11-03-2016 11-03-2016 Chronic Essential hypertension (20 sources) Essential hypertension; Translations: [Essential (primary) hypertension] Onset: 09-24-2022 Chronic Open wounds of extremities (1 source) Injury of lower extremity; Translations: [Unspecified open wound, right lower leg, initial encounter] 06-07-2023 Episodic Other endocrine disorders (19 sources) Hypoglycemia; Translations: [Hypoglycemia, unspecified] Onset: 11-11-2020 11-11-2020 Chronic Other nutritional; endocrine; and metabolic disorders (12 sources) Overweight; Translations: [Body mass index (BMI) 30.0-30.9, adult] Onset: 11-03-2016 11-03-2016 Chronic Other nutritional; endocrine; and metabolic disorders (2 sources) Body mass index (BMI) 30.0-30.9, adult; Translations: [Body mass index (BMI) 30.0-30.9, adult] Onset: 11-03-2016 11-03-2016 Chronic Other nutritional; endocrine; and metabolic disorders (18 sources) Obesity; Translations: [Obesity, unspecified] Onset: 11-11-2020 11-11-2020 Chronic Other nutritional; endocrine; and metabolic disorders (20 sources) Obese class I; Translations: [Obesity, unspecified] Onset: 01-25-2023 Chronic Other nutritional; endocrine; and metabolic disorders (1 source) Obesity, unspecified; Translations: [Obesity, Class I, BMI 30-34.9] Onset: 01-25-2023 Chronic Skin and subcutaneous tissue infections (1 source) Cellulitis of skin; Translations: [Cellulitis, unspecified] 05-30-2023 Episodic Unclassified (1 source) Obesity, Class I, BMI 30-34.9; Translations: [Obesity, Class I, BMI 30-34.9] Onset: 01-25-2023 Unclassified (1 source) Cough, unspecified; Translations: [Cough, unspecified] Onset: 04-30-2024 Past or Other Problems Problem Classification Problem Date Documented Date Episodic/Chronic Abdominal hernia (11 sources) Left inguinal hernia ; Translations: [Unilateral inguinal hernia, without obstruction or gangrene, not specified as recurrent] Onset: 02-10-2017 02-11-2017 Episodic Biliary tract disease (20 sources) Biliary calculus; Translations: [Calculus of gallbladder with chronic cholecystitis without obstruction] Onset: 03-27-2014 03-27-2014 Episodic Diabetes mellitus without complication (20 sources) Insulin pump present; Translations: [Presence of insulin pump (external) (internal)] Onset: 01-25-2023 Episodic Other injuries and conditions due to external causes (3 sources) Open wound with complication; Translations: [Other injury of unspecified body region, initial encounter] 06-13-2023 Episodic Other injuries and conditions due to external causes (3 sources) Other injury of unspecified body region, initial encounter; Translations: [Open wound(s) (multiple) of unspecified site(s), complicated] 06-30-2023 Episodic Other screening for suspected conditions (not mental disorders or infectious disease) (20 sources) Patient encounter status; Translations: [Encounter for screening for malignant neoplasm of colon] Onset: 03-27-2014 03-27-2014 Episodic Results Test Name Value Interpretation Reference Range [facility]ANCE ([id number]) 1955 M Date Time Provider Department 11/15/24 TYRONE GAY ENDOMN During your visit today, we recorded the following information about you: Tammy Chavez MA 11/15/2024 4:36 PM Signed Outside Medical Records received from [facility] for Continuation of Care. Last encounter Visit on 10/19/2024 (with Tyrone Gay) Medical Records have been uploaded 11/15/24. Medical Records received 11/08/24. Tammy Chavez Cardiology Technologist II Endocrinology AND Metabolism [place] F20-X Tyrone Gay APRN.JOSSY 11/20/2024 10:08 AM Signed Reviewed. Does not contain any lab results Allergies As of Date: 11/15/2024 Noted Allergy Reaction CEPHALEXIN 03/27/2014 2 - Rash LISINOPRIL 07/27/2023 3 - Cough PENICILLINS 03/27/2014 2 - Rash Date Reviewed: 10/19/2024 Reviewed by: Tyrone Gay APRN.LEI SELLER - Fully Assessed Reason for Visit: Received Outside Medical Records [[id number]] Prescriptions as of 11/20/2024 - insulin glargine U-300 conc (TOUJEO SOLOSTAR U-300 INSULIN) 300 unit/mL (1.5 mL) Inject 8 Units subcutaneously every morning. If insulin pump fails - insulin lispro (HUMALOG KWIKPEN INSULIN) 100 unit/mL inject subcutaneously PER RATIO: BREAKFAST 1:5, LUNCH 1:8, DINNER1:6 PLUS SLIDING SCALE *MAX DAILY DOSE 60 UNITS*; if insulin pump fails - insulin pump cart,auto,BT,G6/7 (OMNIPOD 5 G6-G7 PODS, GEN 5,) crtg Use one pod every 72 hr - valsartan (DIOVAN) 320 mg tablet Take 1 tablet by mouth once daily. - amLODIPine (NORVASC) 5 mg tablet Take 1 tablet by mouth once daily. - insulin lispro (HUMALOG U-100 INSULIN) 100 unit/mL injection Infuse up to 100 units daily via insulin pump - Blood-Glucose Sensor (DEXCOM G6 SENSOR) marquis Use one sensor every 10 days, IDDM, E 10.9 - Blood-Glucose Transmitter (DEXCOM G6 TRANSMITTER) marquis Use one transmitter every 3 months, IDDM, E 10.9 - glucagon (BAQSIMI) 3 mg/actuation nasal spray Use 1 Hext in the nose as needed. May repeat after 15 minutes using a new device if there is no response. - insulin needles, DISPOSABLE, (DROPLET PEN NEEDLE) 31 gauge x 5/16" USE 4 PEN NEEDLES DAILY IF INSULIN PUMP FAILS - Blood-Glucose Meter,Continuous (DEXCOM G6 CEMENT MASON HELPER) misc Use continuously to monitor glucose, IDDM, E 10.9 Problem List As Of Date 11/15/2024 Noted Resolved Encounter for screening colonoscopy [Z12.11] 03/27/2014 Cholecystitis with cholelithiasis [K80.10] 03/27/2014 Primary hypertension [I10] 09/24/2022 Insulin pump status [Z96.41] 01/25/2023 Obesity, Class I, BMI 30-34.9 [E66.811] 01/25/2023 Type 1 diabetes mellitus with hypoglycemia and *09/09/2023 Encounter Status:Closed by TYRONE GAY on 11/20/24 [facility] Jaylen 11-09-2024 [facility] Telephone (ENDMED) ARGENTINA LANCE ([id number]) 1955 Date Time Provider Department 11/09/24 TYRONE GAY During your visit today, we recorded the following information about you: Dottie Velasco, CRISTIAN 11/09/2024 11:10 AM Signed Received a medical records release from [facility]. Forwarded request to [facility] Medical Records to process via fax at [phone]. Transmission ok. Closed. Allergies As of Date: 11/09/2024 Noted Allergy Reaction CEPHALEXIN 03/27/2014 2 - Rash LISINOPRIL 07/27/2023 3 - Cough PENICILLINS 03/27/2014 2 - Rash Date Reviewed: 10/19/2024 Reviewed by: Tyrone Gay APRN.LEI SELLER - Fully Assessed Reason for Visit: Medical Release Request [Other] Prescriptions as of 11/09/2024 - insulin glargine U-300 conc (TOUJEO SOLOSTAR U-300 INSULIN) 300 unit/mL (1.5 mL) Inject 8 Units subcutaneously every morning. If insulin pump fails - insulin lispro (HUMALOG KWIKPEN INSULIN) 100 unit/mL inject subcutaneously PER RATIO: BREAKFAST 1:5, LUNCH 1:8, DINNER1:6 PLUS SLIDING SCALE *MAX DAILY DOSE 60 UNITS*; if insulin pump fails - insulin pump cart,auto,BT,G6/7 (OMNIPOD 5 G6-G7 PODS, GEN 5,) crtg Use one pod every 72 hr - valsartan (DIOVAN) 320 mg tablet Take 1 tablet by mouth once daily. - amLODIPine (NORVASC) 5 mg tablet Take 1 tablet by mouth once daily. - insulin lispro (HUMALOG U-100 INSULIN) 100 unit/mL injection Infuse up to 100 units daily via insulin pump - Blood-Glucose Sensor (DEXCOM G6 SENSOR) marquis Use one sensor every 10 days, IDDM, E 10.9 - Blood-Glucose Transmitter (DEXCOM G6 TRANSMITTER) marquis Use one transmitter every 3 months, IDDM, E 10.9 - glucagon (BAQSIMI) 3 mg/actuation nasal spray Use 1 Hext in the nose as needed. May repeat after 15 minutes using a new device if there is no response. - insulin needles, DISPOSABLE, (DROPLET PEN NEEDLE) 31 gauge x 5/16" USE 4 PEN NEEDLES DAILY IF INSULIN PUMP FAILS - Blood-Glucose Meter,Continuous (DEXCOM G6 CEMENT MASON HELPER) misc Use continuously to monitor glucose, IDDM, E 10.9 Problem List As Of Date 11/09/2024 Noted Resolved Encounter for screening colonoscopy [Z12.11] 03/27/2014 Cholecystitis with cholelithiasis [K80.10] 03/27/2014 Primary hypertension [I10] 09/24/2022 Insulin pump status [Z96.41] 01/25/2023 Obesity, Class I, BMI 30-34.9 [E66.811] 01/25/2023 Type 1 diabetes mellitus with hypoglycemia and *09/09/2023 Encounter Status:Closed by SIPSOCK, DTOTIE on 11/09/24 [facility] CNOVon 10-19-2024 CNOV Office Visit (ENDMED ) ARGENTINA LANCE ([id number]) 1955 M Date Time Provider Department 10/19/24 11:30 AM TYRONE GAY During your visit today, we recorded the following information about you: Pulse Respiration Blood pressure Weight 64/minute 16/minute 143/72 105.6 kg Height 1.829 m Tyrone Gay APRN.LEI SELLER 10/19/2024 12:48 PM Signed Reason for Consultation: DM Type 1 Referring Physician: SELF HISTORY OF PRESENT ILLNESS Mr. Lance is a 69 year old male presenting here today for a follow up of DM Type 1. As I recall, he was initially diagnosed with diabetes August 2016. LV 07/18/24 A1C today is 6.9 History of diabetes, obesity, hypertension Currently on a cleanse which consists of 21 pills per day for 7 days, no meat, dairy. Lost 10 lb and using less insulin. Going on bike trip to [facility]. +HOSEA antibody in 2018 Started Omnipod 5 insulin pump 11/26/22 Current diabetes regimen is as follows: Glucagon: baqsimi Basal insulin for back up: Toujeo Humalog via Omnipod 5 pump Basal rate: 00:00= 0.3 Bolus: Insulin:carb ratio 00:00= 5 1000=8 4 pm=6 Sensitivity 00:00= 35 Blood glucose target 00:00= 120 Insulin duration= 4 hr Automated mode % 100 Basal/day= 21.1 units or 71% Bolus/day= 8.6 units or 29% 0% overrides Previous diabetes medication: jardiance Glimepiride he is checking his blood glucose with Dexcom G6 CGM he does bring a log book today for review. LDE Blood Sugar Frequency: Dexcom download (10/06/24 to 10/19/24) Target range 72% High 17% Very high 5% Low 5% Very low 1% BG average 145 GMI 6.8% BG ranges lo to 359 BG is stable at goal overnight with occasional low. BG rises gradually between 8 AM and 2 pm then drops lower to 140's. Hypoglycemia frequency: occasionally Hypoglycemia awareness: No; not always sensing Regarding symptoms of hypoglycemia, he is not experiencing any symptoms such as polyuria, polydipsia, nocturia or rapid weight loss or blurry vision, Overall, the patient has no acute complaints at this time. HTN: Switched from lisinopril to valsartan in July due to uncontrolled BP and cough with ELDER. PAST MEDICAL HISTORY Diagnosis Date Diabetes (HCC) Essential hypertension PAST SURGICAL HISTORY Procedure Laterality Date COLONOSCOPY FLX DX W/COLLJ SPEC WHEN PFRMD 04-03-14 LAPS SURG CHOLECYSTECTOMY W/CHOLANGIOGRAPHY 04-17-14 TONSILLECTOMY AND ADENOIDECTOMY FAMILY HISTORY Problem Relation Age of Onset Hypertension Mother Hypertension Father other (traumatic amputation) Father Cancer Paternal Grandmother Cancer Paternal Grandfather Diabetes Maternal Uncle Diabetes Maternal Aunt Social History Tobacco Use Smoking status: Never Smokeless tobacco: Never Substance Use Topics Alcohol use: No Drug use: No Allergies As of Date: 10/19/2024 Allergen Noted Reaction CEPHALEXIN 03/27/2014 Rash LISINOPRIL 07/27/2023 Cough PENICILLINS 03/27/2014 Rash Fully Assessed 10/19/2024 Current Outpatient Medications Medication Sig Dispense Refill insulin pump cart,auto,BT,G6/7 (OMNIPOD 5 G6-G7 PODS, GEN 5,) crtg Use one pod every 72 hr 10 Each 11 valsartan (DIOVAN) 320 mg tablet Take 1 tablet by mouth once daily. 90 tablet 3 amLODIPine (NORVASC) 5 mg tablet Take 1 tablet by mouth once daily. 90 tablet 3 insulin lispro (HUMALOG U-100 INSULIN) 100 unit/mL injection Infuse up to 100 units daily via insulin pump 30 mL 11 Blood-Glucose Sensor (DEXCOM G6 SENSOR) marquis Use one sensor every 10 days, IDDM, E 10.9 3 Each 11 Blood-Glucose Transmitter (DEXCOM G6 TRANSMITTER) marquis Use one transmitter every 3 months, IDDM, E 10.9 1 Each 3 glucagon (BAQSIMI) 3 mg/actuation nasal spray Use 1 Hext in the nose as needed. May repeat after 15 minutes using a new device if there is no response. 2 Each 2 insulin needles, DISPOSABLE, (DROPLET PEN NEEDLE) 31 gauge x 5/16" USE 4 PEN NEEDLES DAILY IF INSULIN PUMP FAILS 400 Each 3 insulin lispro (HUMALOG KWIKPEN INSULIN) 100 unit/mL inject subcutaneously PER RATIO: BREAKFAST 1:6, LUNCH 1:10, DINNER1:12 PLUS SLIDING SCALE *MAX DAILY DOSE 60 UNITS*; if insulin pump fails 60 mL 3 insulin glargine U-300 conc (TOUJEO SOLOSTAR U-300 INSULIN) 300 unit/mL (1.5 mL) Inject 10 Units subcutaneously every morning. If insulin pump fails 3 Each 3 OMNIPOD 5 G6 INTRO KIT, GEN 5, crtg Inject 1 Each subcutaneously as directed. 1 Each 0 Blood-Glucose Meter,Continuous (DEXCOM G6 CEMENT MASON HELPER) [facility] Use continuously to monitor glucose, IDDM, E 10.9 1 Each 0 No current facility-administered medications for this visit. REVIEW OF SYSTEMS Answers submitted by the patient for this visit: Core Review of Systems (Submitted on 10/19/2024) Nasal Congestion: No Hearing Loss: No Vision Disturbance: No A cough: No Chest pain: No Irregular heartbeat: No Leg Swelling: No (more content not included)... Normal [facility] HEMOGLOBIN A1C (POC)on 10-19 HbA1c (Bld) [Mass fraction] 6.9 % Abnormal 4.3 - 5.6 % [facility] Comment on above: Location:[facility], [address] [place], [address] Point of care (POC) Hemoglobin A1c (HGBA1C) testing is intended to assess glucose control and provide a management tool for patients known to have diabetes and their healthcare providers. Target HGBA1C levels may depend on specific clinical circumstances. POC HGBA1C is not intended for use as a diagnostic or screening test; laboratory-based testing should be used for diagnostic purposes. The following information is supplemental and may not be applicable to specific diabetes management situations: The POC device emergency services dispatcher provides a normal range of 4.2% to 6.5% for the HGBA1C POC test. However, the [employer] guidelines indicate that patients with HGBA1C in the range of 5.7% to 6.4% are at increased risk for development of diabetes and that intervention by lifestyle modification may be beneficial. A HGBA1C level greater than or equal to 6.5% is considered diagnostic of diabetes, pending confirmatory testing. Use of HGBA1C testing to evaluate glucose control may not be appropriate for patients with hemoglobin variants or other conditions (e.g. anemia) that alter red blood cell lifespan. Interpretation and review of laboratory results Abnormal [facility] CNPNon 08-10-2024 CNPN Telephone (EDEDME) ARGENTINA LANCE ([id number]) 1955 M Date Time Provider Department 08/10/24 INÉS DELACRUZ During your visit today, we recorded the following information about you: Inés Delacruz, RN 08/10/2024 12:00 PM Signed Patient called with questions about his Omnipod 5 system. He has transitioned from using the Omnipod Controller and now using Omnipod martha on iPhone. He had a couple times when he felt low and checked sugars and they were lower, Dexcom at those times was reading about 20 pts higher per report (reported a finger stick of 53 but report shows 70s at that time). Encouraged him to recalibrate sensor if needed and reach out to Dexcom if having issues with sensor and consider changing sensor if it continues to not match despite calibraiton. He had switched two days ago from using the Omnipod supplied PDM and started using his iPhone as the manager material. Discussed that when he changed platform the system will have to relearn and readapt the algorithm. The adaptively does not carry over between platforms so it will again take about 5 pods for it to optimize control. No other questions at this time. Tyrone Gay APRN.LEI SELLER 08/14/2024 1:16 PM Signed Noted. Thank you Allergies As of Date: 08/10/2024 Noted Allergy Reaction CEPHALEXIN 03/27/2014 2 - Rash LISINOPRIL 07/27/2023 3 - Cough PENICILLINS 03/27/2014 2 - Rash Date Reviewed: 07/18/2024 Reviewed by: Tyrone Gay APRN.LEI SELLER - Fully Assessed Reason for Visit: Patient Question [5057] Prescriptions as of 08/14/2024 - insulin pump cart,auto,BT,G6/7 (OMNIPOD 5 G6-G7 PODS, GEN 5,) crtg Use one pod every 72 hr - valsartan (DIOVAN) 320 mg tablet Take 1 tablet by mouth once daily. - amLODIPine (NORVASC) 5 mg tablet Take 1 tablet by mouth once daily. - insulin lispro (HUMALOG U-100 INSULIN) 100 unit/mL injection Infuse up to 100 units daily via insulin pump - Blood-Glucose Sensor (DEXCOM G6 SENSOR) marquis Use one sensor every 10 days, IDDM, E 10.9 - Blood-Glucose Transmitter (DEXCOM G6 TRANSMITTER) marquis Use one transmitter every 3 months, IDDM, E 10.9 - glucagon (BAQSIMI) 3 mg/actuation nasal spray Use 1 Hext in the nose as needed. May repeat after 15 minutes using a new device if there is no response. - insulin needles, DISPOSABLE, (DROPLET PEN NEEDLE) 31 gauge x 5/16" USE 4 PEN NEEDLES DAILY IF INSULIN PUMP FAILS - insulin lispro (HUMALOG KWIKPEN INSULIN) 100 unit/mL inject subcutaneously PER RATIO: BREAKFAST 1:6, LUNCH 1:10, DINNER1:12 PLUS SLIDING SCALE *MAX DAILY DOSE 60 UNITS*; if insulin pump fails - insulin glargine U-300 conc (TOUJEO SOLOSTAR U-300 INSULIN) 300 unit/mL (1.5 mL) Inject 10 Units subcutaneously every morning. If insulin pump fails - OMNIPOD 5 G6 INTRO KIT, GEN 5, crtg Inject 1 Each subcutaneously as directed. - Blood-Glucose Meter,Continuous (DEXCOM G6 CEMENT MASON HELPER) [facility] Use continuously to monitor glucose, IDDM, E 10.9 Problem List As Of Date 08/10/2024 Noted Resolved Encounter for screening colonoscopy [Z12.11] 03/27/2014 Cholecystitis with cholelithiasis [K80.10] 03/27/2014 Primary hypertension [I10] 09/24/2022 Insulin pump status [Z96.41] 01/25/2023 Obesity, Class I, BMI 30-34.9 [E66.811] 01/25/2023 Type 1 diabetes mellitus with hypoglycemia and *09/09/2023 Encounter Status:Closed by TYRONE GAY on 08/14/24 [facility] CNOVon 07-18-2024 CNOV Office Visit (ENDMED ) ARGENTINA LANCE ([id number]) 1955 M Date Time Provider Department 07/18/24 11:30 AM TYRONE GAY During your visit today, we recorded the following information about you: Pulse Respiration Blood pressure Weight 63/minute 16/minute 122/82 106.9 kg Height 1.829 m Jessica Solano MA 07/18/2024 12:20 PM Signed Tyrone Gay APRN.CNP 07/18/2024 12:20 PM Signed Reason for Consultation: DM Type 1 Referring Physician: SELF HISTORY OF PRESENT ILLNESS Mr. Lance is a 69 year old male presenting here today for a follow up of DM Type 1. As I recall, he was initially diagnosed with diabetes August 2016. 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 +HOSEA antibody in 2018 Started Omnipod 5 insulin pump 11/26/22 Current diabetes regimen is as follows: Glucagon: baqsimi Basal insulin for back up: Toujeo Humalog via Omnipod 5 pump Basal rate: 00:00= 0.3 Bolus: Insulin:carb ratio 00:00= 5 1000=10 4 pm=8 Sensitivity 00:00= 35 Blood glucose target 00:00= 120 Insulin duration= 4 hr Automated mode 93% Basal/day= 29.6 units or 53% Bolus/day= 26.4 units or 47% 0 overrides Previous diabetes medication: jardiance Glimepiride he is checking his blood glucose with Dexcom G6 CGM he does bring a log book today for review. LDE Blood Sugar Frequency: Dexcom download (07/04/24 to 07/17/24) Target range 59 % High 23% Very high 16% Low 1% Very low 1% BG average 177 GMI 7.5% BG ranges lo to hi BG is stable at goal overnight from MN to 11 AM. Around 11 AM his BG rises and is highest from noon to 3 pm. BG spikes again about 6-7 pm. Hypoglycemia frequency: occasionally Hypoglycemia awareness: No; not always sensing Regarding symptoms of hypoglycemia, he is not experiencing any symptoms such as polyuria, polydipsia, nocturia or rapid weight loss or blurry vision, Overall, the patient has no acute complaints at this time. HTN: Switched from lisinopril to valsartan in July due to uncontrolled BP and cough with ELDER. PAST MEDICAL HISTORY Diagnosis Date Diabetes (HCC) Essential hypertension PAST SURGICAL HISTORY Procedure Laterality Date COLONOSCOPY FLX DX W/COLLJ SPEC WHEN PFRMD 04-03-14 LAPS SURG CHOLECYSTECTOMY W/CHOLANGIOGRAPHY 04-17-14 TONSILLECTOMY AND ADENOIDECTOMY FAMILY HISTORY Problem Relation Age of Onset Hypertension Mother Hypertension Father other (traumatic amputation) Father Cancer Paternal Grandmother Cancer Paternal Grandfather Diabetes Maternal Uncle Diabetes Maternal Aunt Social History Tobacco Use Smoking status: Never Smokeless tobacco: Never Substance Use Topics Alcohol use: No Drug use: No Allergies As of Date: 07/18/2024 Allergen Noted Reaction CEPHALEXIN 03/27/2014 Rash LISINOPRIL 07/27/2023 Cough PENICILLINS 03/27/2014 Rash Fully Assessed 07/18/2024 Current Outpatient Medications Medication Sig Dispense Refill valsartan (DIOVAN) 320 mg tablet Take 1 tablet by mouth once daily. 90 tablet 3 amLODIPine (NORVASC) 5 mg tablet Take 1 tablet by mouth once daily. 90 tablet 3 insulin lispro (HUMALOG U-100 INSULIN) 100 unit/mL injection Infuse up to 100 units daily via insulin pump 30 mL 11 Blood-Glucose Sensor (DEXCOM G6 SENSOR) marquis Use one sensor every 10 days, IDDM, E 10.9 3 Each 11 glucagon (BAQSIMI) 3 mg/actuation nasal spray Use 1 Hext in the nose as needed. May repeat after 15 minutes using a new device if there is no response. 2 Each 2 insulin needles, DISPOSABLE, (DROPLET PEN NEEDLE) 31 gauge x 5/16" USE 4 PEN NEEDLES DAILY IF INSULIN PUMP FAILS 400 Each 3 insulin lispro (HUMALOG KWIKPEN INSULIN) 100 unit/mL inject subcutaneously PER RATIO: BREAKFAST 1:6, LUNCH 1:10, DINNER1:12 PLUS SLIDING SCALE *MAX DAILY DOSE 60 UNITS*; if insulin pump fails 60 mL 3 insulin glargine U-300 conc (TOUJEO SOLOSTAR U-300 INSULIN) 300 unit/mL (1.5 mL) Inject 10 Units subcutaneously every morning. If insulin pump fails 3 Each 3 OMNIPOD 5 G6 INTRO KIT, GEN 5, crtg Inject 1 Each subcutaneously as directed. 1 Each 0 Blood-Glucose Meter,Continuous (DEXCOM G6 CEMENT MASON HELPER) misc Use continuously to monitor glucose, IDDM, E 10.9 1 Each 0 insulin pump cart,auto,BT,G6/7 (OMNIPOD 5 G6-G7 PODS, GEN 5,) crtg Use one pod every 72 hr 10 Each 11 Blood-Glucose Transmitter (DEXCOM G6 TRANSMITTER) marquis Use one transmitter every 3 months, IDDM, E 10.9 1 Each 3 No current facility-administered medications for this visit. REVIEW OF SYSTEMS Answers submitted by the patient for this visit: Core Review of Systems (Submitted on 07/14/2024) Fever : No Night sweats: No Recent unintentional weight change: No Nasal Congestion: No Hearing Loss: No Vision Disturbance: No A cough: No Difficulty Breathing (more content not included)... Normal [facility] HEMOGLOBIN A1C (POC)on 07-18 HbA1c (Bld) [Mass fraction] 7.2 % Abnormal 4.3 - 5.6 % [facility] Comment on above: Location:[facility], [address] [place], [address] Point of care (POC) Hemoglobin A1c (HGBA1C) testing is intended to assess glucose control and provide a management tool for patients known to have diabetes and their healthcare providers. Target HGBA1C levels may depend on specific clinical circumstances. POC HGBA1C is not intended for use as a diagnostic or screening test; laboratory-based testing should be used for diagnostic purposes. The following information is supplemental and may not be applicable to specific diabetes management situations: The POC device emergency services dispatcher provides a normal range of 4.2% to 6.5% for the HGBA1C POC test. However, the [employer] guidelines indicate that patients with HGBA1C in the range of 5.7% to 6.4% are at increased risk for development of diabetes and that intervention by lifestyle modification may be beneficial. A HGBA1C level greater than or equal to 6.5% is considered diagnostic of diabetes, pending confirmatory testing. Use of HGBA1C testing to evaluate glucose control may not be appropriate for patients with hemoglobin variants or other conditions (e.g. anemia) that alter red blood cell lifespan. Interpretation and review of laboratory results Abnormal [facility] CNOVon 04-17-2024 CNOV Office Visit (ENDMED ) ARGENTINA LANCE Shy ([id number]) 1955 M Date Time Provider Department 04/17/24 3:45 PM TYRONE GAY During your visit today, we recorded the following information about you: Pulse Blood pressure Weight 66/minute 138/82 109.6 kg Jessica Solano MA 04/17/2024 4:22 PM Signed Tyrone Gay APRN.CNP 04/17/2024 4:22 PM Signed Reason for Consultation: DM Type 1 Referring Physician: SELF HISTORY OF PRESENT ILLNESS Mr. Lance is a 68 year old male presenting here today for a follow up of DM Type 1. As I recall, he was initially diagnosed with diabetes August 2016. LV 01/12/24 A1C today is 7.1 History of diabetes, obesity, hypertension Overall doing well today. +HOSEA antibody in 2018 Started Omnipod 5 insulin pump 11/26/22 Current diabetes regimen is as follows: Glucagon: baqsimi Basal insulin for back up: Toujeo Humalog via Omnipod 5 pump Basal rate: 00:00= 0.3 Bolus: Insulin:carb ratio 00:00= 5 1000=10 4 pm=8 Sensitivity 00:00= 35 Blood glucose target 00:00= 120 Insulin duration= 4 hr Automated mode 97% Basal/day= 32.2 units or 58% Bolus/day= 23.1 units or 42% Previous diabetes medication: jardiance Glimepiride he is checking his blood glucose with Dexcom G6 CGM he does bring a log book today for review. LDE Blood Sugar Frequency: Dexcom download (04/03/24 to 04/16/24) Target range 61 % High 22% Very high 16% Low 0% Very low 1% BG average 174 GMI 7.5% BG ranges lo to hi BG is stable at goal overnight--rare low reading BG rises about 11 AM and stays high on average the rest of the day and evening *bolusing after eating Hypoglycemia frequency: occasionally Hypoglycemia awareness: No; not always sensing Regarding symptoms of hypoglycemia, he is not experiencing any symptoms such as polyuria, polydipsia, nocturia or rapid weight loss or blurry vision, Overall, the patient has no acute complaints at this time. HTN: Switched from lisinopril to valsartan in July due to uncontrolled BP and cough with ELDER. PAST MEDICAL HISTORY Diagnosis Date Diabetes (HCC) Essential hypertension PAST SURGICAL HISTORY Procedure Laterality Date COLONOSCOPY FLX DX W/COLLJ SPEC WHEN PFRMD 04-03-14 LAPS SURG CHOLECYSTECTOMY W/CHOLANGIOGRAPHY 04-17-14 TONSILLECTOMY AND ADENOIDECTOMY FAMILY HISTORY Problem Relation Age of Onset Hypertension Mother Hypertension Father other (traumatic amputation) Father Cancer Paternal Grandmother Cancer Paternal Grandfather Diabetes Maternal Uncle Diabetes Maternal Aunt Social History Tobacco Use Smoking status: Never Smokeless tobacco: Never Substance Use Topics Alcohol use: No Drug use: No Allergies As of Date: 04/17/2024 Allergen Noted Reaction CEPHALEXIN 03/27/2014 Rash LISINOPRIL 07/27/2023 Cough PENICILLINS 03/27/2014 Rash Fully Assessed 04/17/2024 Current Outpatient Medications Medication Sig Dispense Refill OMNIPOD 5 G6 PODS, GEN 5, crtg Inject 1 Each subcutaneously every 72 hours. (use one pod every 72 hours) 10 Each 11 amLODIPine (NORVASC) 5 mg tablet take 1 tablet by mouth once daily 90 tablet 3 insulin lispro (HUMALOG U-100 INSULIN) 100 unit/mL injection Infuse up to 100 units daily via insulin pump 30 mL 11 Blood-Glucose Sensor (DEXCOM G6 SENSOR) marquis Use one sensor every 10 days, IDDM, E 10.9 3 Each 11 Blood-Glucose Transmitter (DEXCOM G6 TRANSMITTER) marquis Use one transmitter every 3 months, IDDM, E 10.9 1 Each 3 glucagon (BAQSIMI) 3 mg/actuation nasal spray Use 1 Hext in the nose as needed. May repeat after 15 minutes using a new device if there is no response. 2 Each 2 valsartan (DIOVAN) 320 mg tablet Take 1 tablet by mouth once daily. 90 tablet 3 insulin needles, DISPOSABLE, (DROPLET PEN NEEDLE) 31 gauge x 5/16" USE 4 PEN NEEDLES DAILY IF INSULIN PUMP FAILS 400 Each 3 insulin lispro (HUMALOG KWIKPEN INSULIN) 100 unit/mL inject subcutaneously PER RATIO: BREAKFAST 1:6, LUNCH 1:10, DINNER1:12 PLUS SLIDING SCALE *MAX DAILY DOSE 60 UNITS*; if insulin pump fails 60 mL 3 insulin glargine U-300 conc (TOUJEO SOLOSTAR U-300 INSULIN) 300 unit/mL (1.5 mL) Inject 10 Units subcutaneously every morning. If insulin pump fails 3 Each 3 OMNIPOD 5 G6 INTRO KIT, GEN 5, crtg Inject 1 Each subcutaneously as directed. 1 Each 0 Blood-Glucose Meter,Continuous (DEXCOM G6 CEMENT MASON HELPER) [facility] Use continuously to monitor glucose, IDDM, E 10.9 1 Each 0 No current facility-administered medications for this visit. REVIEW OF SYSTEMS Answers submitted by the patient for this visit: Core Review of Systems (Submitted on 04/16/2024) Fever : No Night sweats: No Recent unintentional weight change: No Nasal Congestion: No Hearing Loss: No Vision Disturbance: No A cough: No Difficulty Breathing?: No Chest pain: No Irregular heartbeat: No Leg Swelling: Yes (more content not included)... Normal [facility] HEMOGLOBIN A1C (POC)on 04-17 HbA1c (Bld) [Mass fraction] 7.1 % Abnormal 4.3 - 5.6 % [facility] Comment on above: Location:[facility], [facility] [place], [address] Point of care (POC) Hemoglobin A1c (HGBA1C) testing is intended to assess glucose control and provide a management tool for patients known to have diabetes and their healthcare providers. Target HGBA1C levels may depend on specific clinical circumstances. POC HGBA1C is not intended for use as a diagnostic or screening test; laboratory-based testing should be used for diagnostic purposes. The following information is supplemental and may not be applicable to specific diabetes management situations: The POC device emergency services dispatcher provides a normal range of 4.2% to 6.5% for the HGBA1C POC test. However, the [employer] guidelines indicate that patients with HGBA1C in the range of 5.7% to 6.4% are at increased risk for development of diabetes and that intervention by lifestyle modification may be beneficial. A HGBA1C level greater than or equal to 6.5% is considered diagnostic of diabetes, pending confirmatory testing. Use of HGBA1C testing to evaluate glucose control may not be appropriate for patients with hemoglobin variants or other conditions (e.g. anemia) that alter red blood cell lifespan. Interpretation and review of laboratory results [facility] JOSSYN Tele[facility] (ENDMED) ARGENTINA LANCE ([id number]) 1955 M Date Time Provider Department 02/08/24 TYRONE GAY During your visit today, we recorded the following information about you: Tyrone Gay APRN.LEI SELLER 02/08/2024 2:45 PM Signed Please send a copy of recent lab results to his PCP, Dr. Chavez. Thank you Nahomy Beth, CRISTIAN 02/08/2024 4:22 PM Signed Labs printed and faxed to [phone]. 45 pages. Transmission Ok Closed Allergies As of Date: 02/08/2024 Noted Allergy Reaction CEPHALEXIN 03/27/2014 2 - Rash LISINOPRIL 07/27/2023 3 - Cough PENICILLINS 03/27/2014 2 - Rash Date Reviewed: 01/12/2024 Reviewed by: Tyrone Gay APRN.LEI SELLER - Fully Assessed Reason for Visit: Results [95] Prescriptions as of 02/08/2024 - OMNIPOD 5 G6 PODS, GEN 5, crtg Inject 1 Each subcutaneously every 72 hours. (use one pod every 72 hours) - amLODIPine (NORVASC) 5 mg tablet take 1 tablet by mouth once daily - insulin lispro (HUMALOG U-100 INSULIN) 100 unit/mL injection Infuse up to 100 units daily via insulin pump - Blood-Glucose Sensor (DEXCOM G6 SENSOR) marquis Use one sensor every 10 days, IDDM, E 10.9 - Blood-Glucose Transmitter (DEXCOM G6 TRANSMITTER) marquis Use one transmitter every 3 months, IDDM, E 10.9 - glucagon (BAQSIMI) 3 mg/actuation nasal spray Use 1 Hext in the nose as needed. May repeat after 15 minutes using a new device if there is no response. - valsartan (DIOVAN) 320 mg tablet Take 1 tablet by mouth once daily. - insulin needles, DISPOSABLE, (DROPLET PEN NEEDLE) 31 gauge x 5/16" USE 4 PEN NEEDLES DAILY IF INSULIN PUMP FAILS - insulin lispro (HUMALOG KWIKPEN INSULIN) 100 unit/mL inject subcutaneously PER RATIO: BREAKFAST 1:6, LUNCH 1:10, DINNER1:12 PLUS SLIDING SCALE *MAX DAILY DOSE 60 UNITS*; if insulin pump fails - insulin glargine U-300 conc (TOUJEO SOLOSTAR U-300 INSULIN) 300 unit/mL (1.5 mL) Inject 10 Units subcutaneously every morning. If insulin pump fails - OMNIPOD 5 G6 INTRO KIT, GEN 5, crtg Inject 1 Each subcutaneously as directed. - Blood-Glucose Meter,Continuous (DEXCOM G6 CEMENT MASON HELPER) [facility] Use continuously to monitor glucose, IDDM, E 10.9 Problem List As Of Date 02/08/2024 Noted Resolved Encounter for screening colonoscopy [Z12.11] 03/27/2014 Cholecystitis with cholelithiasis [K80.10] 03/27/2014 Primary hypertension [I10] 09/24/2022 Insulin pump status [Z96.41] 01/25/2023 Obesity, Class I, BMI 30-34.9 [E66.9] 01/25/2023 Type 1 diabetes mellitus with hypoglycemia and *09/09/2023 Encounter Status:Closed by MANDY NAHOMY on 02/08/[address] [facility] ALBUMIN/CREATININE RATIO, UR INEon 02-07-2024 Albumin DL <= 20 mg/L (U) [Mass/Vol] mg/dL Normal [facility] Comment on above: Order Comment: Speci men Type: URINE SPECIMENOrdering Facility: [facility] Address: [address] [place] [address] Performed By: #### U ACR ####[facility] LABCLIA [id number] [place] [address] [place] Albumin/Creatinine (U) [Mass ratio] <17 Normal <30 [facility] Comment on above: Order Comment: Speci men Type: URINE SPECIMENOrdering Facility: [facility] Address: [address] [place] [address] Result Comment: Adul t Male and Female Nephrotic Criteria: <30 mg/g is considered normal to mildly increased 30-300 mg/g is considered moderately increased >300 mg/g is considered severely increased KDIGO. (2013). KDIGO 2012 Clinical Practice Guideline for the Evaluation and Management of Chronic Kidney Disease. Official Journal of the International Society of Nephrology, 3(1), 1-150. Performed By: #### U ACR ####[facility] LABCLIA [id number] [place] [address] [place] Creatinine (U) [Mass/Vol] 69.7 mg/dL Normal 20.0-300.0 [facility] Comment on above: Order Comment: Speci men Type: URINE SPECIMENOrdering Facility: [facility] Address: [address] [place] [address] Performed By: #### U ACR ####[facility] LABCLIA [id number] [place] [id number] [place] Comprehensive metabolic 2000 panelon 02-07-2024 Albumin [Mass/Vol] 4.5 g/dL Normal 3.9-4.9 [facility] Comment on above: Order Comment: Speci men Type: BLOOD SPECIMENOrdering Facility: [facility] Address: [address] [place] [address] Performed By: #### 2 4323-8 ####[facility] MILLTOWNCLIA [id number] [place] [address] [place] ALP [Catalytic activity/Vol] 76 U/L Normal 38-113 [facility] Comment on above: Order Comment: Speci men Type: BLOOD SPECIMENOrdering Facility: [facility] Address: [address] [place] [address] Performed By: #### 2 4323-8 ####[facility] MILLTOWNCLIA [id number] [place] [address] [place] ALT [Catalytic activity/Vol] 18 U/L Normal 10-54 [facility] Comment on above: Order Comment: Speci men Type: BLOOD SPECIMENOrdering Facility: [facility] Address: [address] [place] [address] Performed By: #### 2 4323-8 ####[facility] MILLTOWNCLIA [id number] [place] [address] [place] Anion gap [Moles/Vol] 10 mmol/L Normal 8-15 [facility] Comment on above: Order Comment: Speci men Type: BLOOD SPECIMENOrdering Facility: [facility] Address: [address] [place] [address] Performed By: #### 2 4323-8 ####[facility] MILLTOWNCLIA [id number] [place] [address] [place] AST [Catalytic activity/Vol] 23 U/L Normal 14-40 [facility] Comment on above: Order Comment: Speci men Type: BLOOD SPECIMENOrdering Facility: [facility] Address: [address] [place] [address] Performed By: #### 2 4323-8 ####[facility] MILL[facility]OWNCLIA [id number] [place] [address] [place] Bilirubin [Mass/Vol] 0.5 mg/dL Normal 0.2-1.3 [facility] Comment on above: Order Comment: Speci men Type: BLOOD SPECIMENOrdering Facility: [facility] Address: [address] [place] [address] Performed By: #### 2 4323-8 ####[facility] GIOVANNA MILLTOWNCLIA [id number] [place] [address] [place] Calcium [Mass/Vol] 9.2 mg/dL Normal 8.5-10.2 [facility] Comment on above: Order Comment: Speci men Type: BLOOD SPECIMENOrdering Facility: [facility] Address: [address] [place] [address] Performed By: #### 2 4323-8 ####[facility] H[facility]ITALELIZABETHLIA [id number] [place] [address] [place] Chloride [Moles/Vol] 104 mmol/L Normal 98-107 [facility] Comment on above: Order Comment: Speci men Type: BLOOD SPECIMENOrdering Facility: [facility] Address: [address] [place] [address] Performed By: #### 2 4323-8 ####[facility]ENTERWNCLIA [id number] [place] [address] [place] CO2 [Moles/Vol] 24 mmol/L Normal 22-30 [facility] Comment on above: Order Comment: Speci men Type: BLOOD SPECIMENOrdering Facility: [facility] Address: [address] [place] [address] Performed By: #### 2 4323-8 ####[facility] MILLWNCLIA [id number] [place] [address] [place] Creatinine [Mass/Vol] 1.03 mg/dL Normal 0.73-1.22 [facility] Comment on above: Order Comment: Speci men Type: BLOOD SPECIMENOrdering Facility: [facility] Address: [address] [place] [address] Performed By: #### 2 4323-8 ####[facility] [id number] [place] [address] [place] Creatinine and Glomerular filtration rate.predicted panel (S/P/Bld) 80 mL/min/1.73m??? Normal >=60 [facility] Comment on above: Order Comment: Garrison perez Type: BLOOD SPECIMENOrdering Facility: [facility] Address: [address] [place] [address] Result Comment: Mary mated Glomerular Filtration Rate (eGFR) is calculated using the 2020 CKD-EPI creatinine equation. This equation utilizes serum creatinine, sex, and age as parameters. The creatinine assay has traceable calibration to isotope dilution-mass spectrometry. Refer to KDIGO guidelines for clinical interpretation. In patients with unstable renal function, e.g. those with acute kidney injury, the eGFR may not accurately reflect actual GFR. Performed By: #### 2 4323-8 ####[facility] [id number] [place] [address] [place] Glucose [Mass/Vol] 203 mg/dL High 74-99 [facility] Comment on above: Order Comment: Garrison perez Type: BLOOD SPECIMENOrdering Facility: [facility] Address: [address] [place] [address] Result Comment: The Chinese Diabetes Association (ADA) provides guidance for cutoff values for fasting glucose and random glucose. The ADA defines fasting as no caloric intake for at least 8 hours. Fasting plasma glucose results between 100 to 125 mg/dL indicate increased risk for diabetes (prediabetes). Fasting plasma glucose results greater than or equal to 126 mg/dL meet the criteria for diagnosis of diabetes. In the absence of unequivocal hyperglycemia, results should be confirmed by repeat testing. In a patient with classic symptoms of hyperglycemia or hyperglycemic crisis, random plasma glucose results greater than or equal to 200 mg/dL meet the criteria for diagnosis of diabetes. Reference: Standards of Medical Care in Diabetes 2016, Chinese Diabetes Association. Diabetes Care. 2016.39(Suppl 1). Performed By: #### 2 4323-8 ####[facility] MILLTORIBIOWNCLIA [id number] [place] [address] [place] Potassium [Moles/Vol] 4.0 mmol/L Normal 3.7-5.1 [facility] Comment on above: Order Comment: Speci men Type: BLOOD SPECIMENOrdering Facility: [facility] Address: [address] [place] [address] Performed By: #### 2 4323-8 ####[facility]ENTERWNCLIA [id number] [place] [address] [place] Protein [Mass/Vol] 6.9 g/dL Normal 6.3-8.0 [facility] Comment on above: Order Comment: Speci men Type: BLOOD SPECIMENOrdering Facility: [facility] Address: [address] [place] [address] Performed By: #### 2 4323-8 ####[facility]ITALNCLIA [id number] [place] [address] [place] Sodium [Moles/Vol] 138 mmol/L Normal 136-144 [facility] Comment on above: Order Comment: Speci men Type: BLOOD SPECIMENOrdering Facility: [facility] Address: [address] [place] [address] Performed By: #### 2 4323-8 ####[facility] MILLWNCLIA [id number] [place] [address] [place] Urea nitrogen [Mass/Vol] 20 mg/dL Normal 9-24 [facility] Comment on above: Order Comment: Speci men Type: BLOOD SPECIMENOrdering Facility: [facility] Address: [address] [place] [address] Performed By: #### 2 4323-8 ####[facility]ITALNCLIA [id number] [place] [address] [place] Lipid 1996 panelon 4 Cholesterol [Mass/Vol] 178 mg/dL Normal <200 [facility] Comment on above: Order Comment: Speci men Type: BLOOD SPECIMENOrdering Facility: [facility] Address: [address] [place] [address] Result Comment: <200 mg/dL, Desirable 200-239 mg/dL, Borderline high >239 mg/dL, High Performed By: #### 2 4331-1 ####[facility] LABCLIA [id number] [address] STATES OF [facility] [id number] [place] [address] [place]#### 3016-3 ####[facility] LABCLIA [id number] [place] [address] [place] Cholesterol in HDL [Mass/Vol] 38 mg/dL Low >39 [facility] Comment on above: Order Comment: Speci men Type: BLOOD SPECIMENOrdering Facility: [facility] Address: [address] [place] [address] Result Comment: 40-5 9 mg/dL, Acceptable >59 mg/dL, High: Negative risk factor for coronary heart disease <40 mg/dL, Low: Positive risk factor for coronary heart disease Performed By: #### 2 4331-1 ####[facility] LABCLIA [id number] [place] [address] [place] [facility] [id number] [place] [address] [place]#### 3016-3 ####[facility] LABCLIA [id number] [place] [address] [place] Cholesterol in LDL [Mass/Vol] 123 mg/dL High <100 [facility] Comment on above: Order Comment: Speci men Type: BLOOD SPECIMENOrdering Facility: [facility] Address: [address] [place] [address] Result Comment: <100 mg/dL, Optimal 100-129 mg/dL, Near optimal/above optimal 130-159 mg/dL, Borderline high 160-189 mg/dL, High >189 mg/dL, Very high Secondary prevention optimal LDL Cholesterol levels are recommended to be < 70 mg/dL Performed By: #### 2 4331-1 ####[facility] LABCLIA [id number] [id number] [place] [address] [place]#### 3016-3 ####[facility] LABIA [id number] [place] [address] [place] Cholesterol in LDL/Cholesterol in HDL [Mass ratio] 3.24 {ratio} High <2.54 [facility] Comment on above: Order Comment: Speci men Type: BLOOD SPECIMENOrdering Facility: [facility] Address: [address] [place] [address] Result Comment: Hernan dey: 1. National Cholesterol Education Program ATP III Guideline At-A-Glance Quick Desk Reference: National Heart, Lung, and Blood [place]. National Institutes of Health. 2001: NIH Publication No. 01-3305. 2. An International Atherosclerosis Society position paper: global recommendations for the management of dyslipidemia: executive summary, Atherosclerosis. 2014: 232(2):410-413. Performed By: #### 2 4331-1 ####[facility] LABCLIA [id number] [id number] [place] [address] [place]#### 3016-3 ####[facility] LABCLIA [id number] [place] [address] [place] Cholesterol in VLDL [Mass/Vol] 17 mg/dL Normal <30 [facility] Comment on above: Order Comment: Speci men Type: BLOOD SPECIMENOrdering Facility: [facility] Address: [address] [place] [address] Performed By: #### 2 4331-1 ####[facility] LABCLIA [id number] [place] [address] [place] [facility] [id number] [place] [address] [place]#### 3016-3 ####[facility] LABCLIA [id number] [place] [address] [place] Cholesterol non HDL [Mass/Vol] 140 mg/dL High <130 [facility] Comment on above: Order Comment: Speci men Type: BLOOD SPECIMENOrdering Facility: [facility] Address: [address] [place] [address] Result Comment: <130 mg/dL, Optimal 130-159 mg/dL, Near optimal/above optimal 160-189 mg/dL, Borderline high 190-219 mg/dL, High >219 mg/dL, Very high Secondary prevention optimal non HDL Cholesterol levels are recommended to be <100 mg/dL Performed By: #### 2 4331-1 ####[facility] LABCLIA [id number] [place] [address] [place] [facility] [id number] [place] [address] [place]#### 3016-3 ####[facility] LABCLIA [id number] [place] [address] [place] Cholesterol.total/ Cholesterol in HDL [Mass ratio] 4.68 {ratio} Normal <5.10 [facility] Comment on above: Order Comment: Speci men Type: BLOOD SPECIMENOrdering Facility: [facility] Address: [address] [place] [address] Performed By: #### 2 4331-1 ####[facility] LABCLIA [id number] [address] [id number] [place] [address] [place]#### 3016-3 ####[facility] LABCLIA [id number] [place] [address] [place] FASTING TIME [address] [facility] Comment on above: Order Comment: Speci men Type: BLOOD SPECIMENOrdering Facility: [facility] Address: [address] [place] [address] Performed By: #### 2 4331-1 ####[facility] LABCLIA [id number] [id number] [place] [address] [place]#### 3016-3 ####[facility] LABCLIA [id number] [place] [address] [place] Triglyceride [Mass/Vol] 86 mg/dL Normal <150 [facility] Comment on above: Order Comment: Speci men Type: BLOOD SPECIMENOrdering Facility: [facility] Address: [address] [place] [id number] Result Comment: <150 mg/dL, Normal 150-199 mg/dL, Borderline high 200-499 mg/dL, High >499 mg/dL, Very high Performed By: #### 2 4331-1 ####[facility] LABCLIA [id number] [address] STATES OF [facility] [id number] [place] [address] [place]#### 3016-3 ####[facility] [id number] [place] [address] [place] PSA/PROSTATE SPECIFIC ANTIGE N SCREENINGon 02-07-2024 Prostate specific Ag [Mass/Vol] 0.76 ng/mL Normal <2.60 [facility] Comment on above: Order Comment: Speci men Type: BLOOD SPECIMENOrdering Facility: [facility] Address: [address] [place] [address] Result Comment: Tota l PSA test methodology used is the Electrochemiluminescence Immunoassay by [employer]. Total PSA values by differing methodologies cannot be interchanged. Performed By: #### P SAS1 ####[facility] [id number] [place] [address] [place] TSH SerPl-aCncon 02-07-2024 TSH Qn 2.610 m[IU]/L Normal 0.270-4.200 [facility] Comment on above: Order Comment: Speci men Type: BLOOD SPECIMENOrdering Facility: [facility] Address: [address] [place] [address] Performed By: #### 2 4331-1 ####[facility] [id number] [address] OF [facility] [id number] [place] [address] [place]#### 3016-3 ####[facility] [id number] [place] [id number] [place] CNOVon 01-12-2024 CNOV Office Visit (ENDMED ) ARGENTINA LANCE ([id number]) 1955 M Date Time Provider Department 01/12/24 3:45 PM TYRONE GAY During your visit today, we recorded the following information about you: Pulse Blood pressure Weight Height 102/minute 122/80 108 kg 1.829 m Tyrone Gay APRN.LEI SELLER 01/12/2024 4:36 PM Signed Reason for Consultation: DM Type 1 Referring Physician: SELF HISTORY OF PRESENT ILLNESS Mr. Lance is a 68 year old male presenting here today for a follow up of DM Type 1. As I recall, he was initially diagnosed with diabetes August 2016. LV 09/09/23 A1C today is 6.[address] Chavez at [facility] History of diabetes, obesity, hypertension +HOSEA antibody in 2018 Started Omnipod 5 insulin pump 11/26/22 Had eye exam in 2022. Current diabetes regimen is as follows: Glucagon: baqsimi Basal insulin for back up: Toujeo Humalog via Omnipod 5 pump Basal rate: 00:00= 0.3 Bolus: Insulin:carb ratio 00:00= 5 1000=10 3 pm=8 Sensitivity 00:00= 35 Blood glucose target 00:00= 120 Insulin duration= 4 hr Automated mode 100% Basal/day= 23.5 units or 53% Bolus/day= 21 units or 47% Previous diabetes medication: jardiance Glimepiride he is checking his blood glucose with Dexcom G6 CGM he does bring a log book today for review. LDE Blood Sugar Frequency: Dexcom download (12/30/23 to 01/12/24) Target range 73 % High 18% Very high 6% Low 3% Very low 0% BG average 150 GMI--- BG ranges lo to hi BG is stable at goal overnight--rare low reading Glucose is steady until about noon when it rises the most up to 210 average. It drops back down to baseline by 6 pm Hypoglycemia frequency: occasionally Hypoglycemia awareness: No; not always sensing Regarding symptoms of hypoglycemia, he is not experiencing any symptoms such as polyuria, polydipsia, nocturia or rapid weight loss or blurry vision, Overall, the patient has no acute complaints at this time. HTN: Switched from lisinopril to valsartan in July due to uncontrolled BP and cough with ELDER. PAST MEDICAL HISTORY Diagnosis Date Diabetes (HCC) Essential hypertension PAST SURGICAL HISTORY Procedure Laterality Date COLONOSCOPY FLX DX W/COLLJ SPEC WHEN PFRMD 04-03-14 LAPS SURG CHOLECYSTECTOMY W/CHOLANGIOGRAPHY 04-17-14 TONSILLECTOMY AND ADENOIDECTOMY FAMILY HISTORY Problem Relation Age of Onset Hypertension Mother Hypertension Father other (traumatic amputation) Father Cancer Paternal Grandmother Cancer Paternal Grandfather Diabetes Maternal Uncle Diabetes Maternal Aunt Social History Tobacco Use Smoking status: Never Smokeless tobacco: Never Substance Use Topics Alcohol use: No Drug use: No Allergies As of Date: 01/12/2024 Allergen Noted Reaction CEPHALEXIN 03/27/2014 Rash LISINOPRIL 07/27/2023 Cough PENICILLINS 03/27/2014 Rash Fully Assessed 01/12/2024 Current Outpatient Medications Medication Sig Dispense Refill OMNIPOD 5 G6 PODS, GEN 5, crtg Inject 1 Each subcutaneously every 72 hours. (use one pod every 72 hours) 10 Each 11 amLODIPine (NORVASC) 5 mg tablet take 1 tablet by mouth once daily 90 tablet 3 insulin lispro (HUMALOG U-100 INSULIN) 100 unit/mL injection Infuse up to 100 units daily via insulin pump 30 mL 11 Blood-Glucose Sensor (DEXCOM G6 SENSOR) marquis Use one sensor every 10 days, IDDM, E 10.9 3 Each 11 Blood-Glucose Transmitter (DEXCOM G6 TRANSMITTER) marquis Use one transmitter every 3 months, IDDM, E 10.9 1 Each 3 glucagon (BAQSIMI) 3 mg/actuation nasal spray Use 1 Hext in the nose as needed. May repeat after 15 minutes using a new device if there is no response. 2 Each 2 valsartan (DIOVAN) 320 mg tablet Take 1 tablet by mouth once daily. 90 tablet 3 insulin needles, DISPOSABLE, (DROPLET PEN NEEDLE) 31 gauge x 5/16" USE 4 PEN NEEDLES DAILY IF INSULIN PUMP FAILS 400 Each 3 insulin lispro (HUMALOG KWIKPEN INSULIN) 100 unit/mL inject subcutaneously PER RATIO: BREAKFAST 1:6, LUNCH 1:10, DINNER1:12 PLUS SLIDING SCALE *MAX DAILY DOSE 60 UNITS*; if insulin pump fails 60 mL 3 insulin glargine U-300 conc (TOUJEO SOLOSTAR U-300 INSULIN) 300 unit/mL (1.5 mL) Inject 10 Units subcutaneously every morning. If insulin pump fails 3 Each 3 OMNIPOD 5 G6 INTRO KIT, GEN 5, crtg Inject 1 Each subcutaneously as directed. 1 Each 0 Blood-Glucose Meter,Continuous (DEXCOM G6 CEMENT MASON HELPER) [facility] Use continuously to monitor glucose, IDDM, E 10.9 1 Each 0 No current facility-administered medications for this visit. REVIEW OF SYSTEMS Answers submitted by the patient for this visit: Core Review of Systems (Submitted on 01/11/2024) Fever : No Night sweats: No Recent unintentional weight change: No Nasal Congestion: No Hearing Loss: No Vision Disturbance: No A cough: No Difficulty Breathing?: No Chest pain: No Irregular heart (more content not included)... Normal [facility] HEMOGLOBIN A1C (POC)on 01-11 HbA1c (Bld) [Mass fraction] 6.7 % Abnormal 4.3 - 5.6 % [facility] Comment on above: Location:[facility], [address] [place] [address], [address] Point of care (POC) Hemoglobin A1c (HGBA1C) testing is intended to assess glucose control and provide a management tool for patients known to have diabetes and their healthcare providers. Target HGBA1C levels may depend on specific clinical circumstances. POC HGBA1C is not intended for use as a diagnostic or screening test; laboratory-based testing should be used for diagnostic purposes. The following information is supplemental and may not be applicable to specific diabetes management situations: The POC device emergency services dispatcher provides a normal range of 4.2% to 6.5% for the HGBA1C POC test. However, the [place] Diabetes Association guidelines indicate that patients with HGBA1C in the range of 5.7% to 6.4% are at increased risk for development of diabetes and that intervention by lifestyle modification may be beneficial. A HGBA1C level greater than or equal to 6.5% is considered diagnostic of diabetes, pending confirmatory testing. Use of HGBA1C testing to evaluate glucose control may not be appropriate for patients with hemoglobin variants or other conditions (e.g. anemia) that alter red blood cell lifespan. Interpretation and review of laboratory results Abnormal [facility] Jaylen 12-13-2023 JOSE Telephone ([employer]) CASIARGENTINA ([id number]) 1955 M Date Time Provider Department 12/13/23 TYRONE GAY During your visit today, we recorded the following information about you: Thania Beth MA 12/13/2023 2:43 PM Signed Form on docs desk/basket for review from [facility]. Please review and sign. Needs to be faxed to FOR OMNIPOD 5 G6 PODS Tyrone Gay APRN.JOSSY 12/13/2023 3:38 PM Signed Form signed. Thank you Thania Beth MA 12/13/2023 3:58 PM Signed Form faxed to [facility] at on December 13, 2023; transmission ok. Allergies As of Date: 12/13/2023 Noted Allergy Reaction CEPHALEXIN 03/27/2014 2 - Rash LISINOPRIL 07/27/2023 3 - Cough PENICILLINS 03/27/2014 2 - Rash Date Reviewed: 09/09/2023 Reviewed by: Tyrone Gay APRN.LEI SELLER - Fully Assessed Reason for Visit: [facility] [Other] Prescriptions as of 12/13/2023 - amLODIPine (NORVASC) 5 mg tablet take 1 tablet by mouth once daily - insulin lispro (HUMALOG U-100 INSULIN) 100 unit/mL injection Infuse up to 100 units daily via insulin pump - OMNIPOD 5 G6 PODS, GEN 5, crtg Inject 1 Each subcutaneously every 72 hours. (use one pod every 72 hours) - Blood-Glucose Sensor (DEXCOM G6 SENSOR) marquis Use one sensor every 10 days, IDDM, E 10.9 - Blood-Glucose Transmitter (DEXCOM G6 TRANSMITTER) marquis Use one transmitter every 3 months, IDDM, E 10.9 - glucagon (BAQSIMI) 3 mg/actuation nasal spray Use 1 Hext in the nose as needed. May repeat after 15 minutes using a new device if there is no response. - valsartan (DIOVAN) 320 mg tablet Take 1 tablet by mouth once daily. - Lactobacillus acidophilus (FLORAJEN ACIDOPHILUS) 20 billion cell capsule Take 1 capsule by mouth once daily. - insulin needles, DISPOSABLE, (DROPLET PEN NEEDLE) 31 gauge x 5/16" USE 4 PEN NEEDLES DAILY IF INSULIN PUMP FAILS - insulin lispro (HUMALOG KWIKPEN INSULIN) 100 unit/mL inject subcutaneously PER RATIO: BREAKFAST 1:6, LUNCH 1:10, DINNER1:12 PLUS SLIDING SCALE *MAX DAILY DOSE 60 UNITS*; if insulin pump fails - insulin glargine U-300 conc (TOUJEO SOLOSTAR U-300 INSULIN) 300 unit/mL (1.5 mL) Inject 10 Units subcutaneously every morning. If insulin pump fails - OMNIPOD 5 G6 INTRO KIT, GEN 5, crtg Inject 1 Each subcutaneously as directed. - Blood-Glucose Meter,Continuous (DEXCOM G6 CEMENT [place] HELPER) [facility] [place] Use continuously to monitor glucose, IDDM, E 10.9 Problem List As Of Date 12/13/2023 Noted Resolved Encounter for screening colonoscopy [Z12.11] 03/27/2014 Cholecystitis with cholelithiasis [K80.10] 03/27/2014 Primary hypertension [I10] 09/24/2022 Insulin pump status [Z96.41] 01/25/2023 Obesity, Class I, BMI 30-34.9 [E66.9] 01/25/2023 Type 1 diabetes mellitus with hypoglycemia and *09/09/2023 Encounter Status:Closed by THANIA BETH on 12/13/[address] [facility] HEMOGLOBIN A1C (POC)on 09-09 HbA1c (Bld) [Mass fraction] 7.3 % Abnormal 4.3 - 5.6 % [facility] Anaerobic cultureOrdered By: Jacklyn Sullivan on 06-13-2023 Bacteria identified Anaer cx Nom (Unsp spec) No growth in 5 days. [facility] Gram stain for investigation of transfusion reactionOrdered By: Jacklyn Sullivan on 06-13-2023 Microscopic observation Gram stain Nom (Unsp spec) [facility] Routine wound cultureOrdered By: Jacklyn Sullivan on 06-13-2023 Bacteria identified Cx Nom (Wound) No growth aerobically. [facility] HEMOGLOBIN A1C (POC)on 04-29 HbA1c (Bld) [Mass fraction] 6.6 % Abnormal 4.2 - 5.6 % [facility] HEMOGLOBIN A1C (POC)on 09-24 HbA1c (Bld) [Mass fraction] 6.9 % Abnormal 4.2 - 5.6 % [facility] HEMOGLOBIN A1C (POC)on 05-28 HbA1c (Bld) [Mass fraction] 7.2 % Abnormal 4.2 - 5.6 % [facility] HEMOGLOBIN A1C (POC)on 11-25 HbA1c (Bld) [Mass fraction] 6.6 % Abnormal 4.2 - 5.6 % 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 Tobacco use CPHS Never smoker Invalid Interpretation Code [facility] Work Phone: Office Visit: left inguinal herniaon 02-10-2017 Dietary management education, guidance, and counseling (procedure) yes Invalid Interpretation Code [facility] Work Phone: Documentation of current medications (procedure) Done Invalid Interpretation Code [facility] Work Phone: Fall risk assessment No Invalid Interpretation Code [facility] Work Phone: Protein mass conc Done [facility] [employer] Work Phone: Tobacco smoking status NHIS Never Invalid Interpretation Code [facility] Work Phone: Tobacco smoking status NHIS Never smoker [facility] Work Phone: Tobacco use CPHS Never smoker Invalid Interpretation Code [facility] Work Phone: Office Visit: Diabetes consu lton 11-03-2016 Adolescent depression screening assessment Adolescent depression screening assessment Invalid Interpretation Code [facility] Work Phone: Adult depression screening assessment Adolescent depression screening assessment Invalid Interpretation Code [facility] Work Phone: Dietary management education, guidance, and counseling (procedure) yes Invalid Interpretation Code [facility] Work Phone: Documentation of current medications (procedure) Done Invalid Interpretation Code [facility] Work Phone: Protein mass conc Done [facility] Work Phone: Tobacco smoking status SCIS Never Invalid Interpretation Code [facility] Work Phone: Tobacco smoking status [facility] Never smoker [facility] Work Phone: Chart Maintenanceon 09-01-19 17 Cholesterol in HDL mass conc 29 mg/dL Invalid Interpretation Code [facility] Work Phone: Cholesterol in LDL mass conc 105 mg/dL Invalid Interpretation Code [facility] Work Phone: Cholesterol mass conc 157 mg/dL Invalid Interpretation Code [facility] Work Phone: Creatinine mass conc 1.01 mg/dL Invalid Interpretation Code [facility] Work Phone: Triglyceride mass conc 116 mg/dL Invalid Interpretation Code [facility] Work Phone: Chart Maintenanceon 08-31-19 17 Hemoglobin A1c/Hemoglobin.tot al mass fraction (Bld) 8.9 % Invalid Interpretation Code [facility] Work Phone: Vital Signs Date Time Vital Sign Value Performing Clinician Facility 10-19-2024 11:29-0400 Body height 182.9 cm [facility] [employer]ITORY MANAGER GENERAL SAL[employer] SE[employer] Work Phone: [facility] 10-19-2024 11:29-0400 Body mass index (BMI) [Ratio] 31.57 kg/m2 Tyrone Gay TERRITORY MANAGER [employer] Work Phone: [facility] 10-19-2024 11:29-0400 Body weight 105.6 kg [facility] TERRITORY MANAGER [employer]AL SAL[employer] Work Phone: [facility] 10-19-2024 11:29-0400 Diastolic blood pressure 72 mm[Hg] Tyrone Kupiec TERRITORY MANAGER [employer] SAL[employer] Work Phone: [facility] 10-19-2024 11:29-0400 Heart rate 64 /min Tyrone Kupiec TERRITORY MANAGER [employer] SAL[employer] SE[employer] Work Phone: [facility] 10-19-2024 11:29-0400 Respiratory rate 16 /min Tyrone Kupie TERRITORY MANAGER GENERAL SALES.[employer] SELL[employer] Work Phone: [facility] 10-19-2024 11:29-0400 SaO2% (BldA) [Mass fraction] 98 % Tyrone Kupie TERRITORY MANAGER GENERAL SALES.[employer] SELL[employer] Work Phone: [facility] 10-19-2024 11:29-0400 Systolic blood pressure 143 mm[Hg] Tyrone Kupiec TERRITORY MANAGER GENER[employer] SALES.[employer] SELL[employer] Work Phone: [facility] 07-18-2024 11:49-0500 Diastolic blood pressure 82 mm[Hg] Tyrone Kupiec TERRITORY MANAGER [employer] SAL[employer] SELL[employer] Work Phone: [facility] 07-18-2024 11:49-0500 Systolic blood pressure 122 mm[Hg] Tyrone Kupiec TERRITORY MANAGER GENERAL SALES.[employer] SELLER Work Phone: [facility] 07-18-2024 11:18-0500 Body height 182.9 cm [facility] TERRITORY MANAGER GENERAL SALES.LEI SELLER Work Phone: [facility] 07-18-2024 11:18-0500 Body mass index (BMI) [Ratio] 31.96 kg/m2 [facility] TERRITORY MANAGER GENERAL SALES.[employer] SELLER Work Phone: [facility] 07-18-2024 11:18-0500 Body weight 106.9 kg [facility] TERRITORY MANAGER GENERAL SALES.LE[employer] SELLER Work Phone: [facility] 07-18-2024 11:18-0500 Heart rate 63 /min Tyrone Kupiec TERRITORY MANAGER [employer]AL SALES.[employer]I SELLER Work Phone: [facility] 07-18-2024 11:18-0500 Respiratory rate 16 /min Tyrone Kupiec TERRITORY MANAGER GENERAL SALES.LEI SELLER Work Phone: [facility] 07-18-2024 11:18-0500 SaO2% (BldA) [Mass fraction] 97 % Tyrone Kupiec TERRITORY MANAGER [employer]AL SALES.LE[employer] SELLER Work Phone: [facility] 04-17-2024 15:57-0400 Diastolic blood pressure 82 mm[Hg] Tyrone Kupiec TERRITORY MANAGER [employer]AL SALES.[employer]I SELLER Work Phone: [facility] 04-17-2024 15:57-0400 Systolic blood pressure 138 mm[Hg] Tyrone Kupiec TERRITORY MANAGER GENERAL SALES.[employer] SELLER Work Phone: [facility] 04-17-2024 15:40-0400 Body mass index (BMI) [Ratio] 32.76 kg/m2 Tyrone Kupiec TERRITORY MANAGER [employer]AL SALES.[employer] SELLER Work Phone: [facility] 04-17-2024 15:40-0400 Body weight 109.6 kg [facility] TERRITORY MANAGER GENERAL SALES.LEI SELLER Work Phone: [facility] 04-17-2024 15:40-0400 Heart rate 66 /min [facility] TERRITORY MANAGER GENERAL SALES.LEI SELLER Work Phone: [facility] 04-17-2024 15:40-0400 SaO2% (BldA) [Mass fraction] 96 % Tyrone Kupiec TERRITORY MANAGER [employer]AL SALES.LEI SELLER Work Phone: [facility] 01-12-2024 16:05-0400 Diastolic blood pressure 80 mm[Hg] Tyrone Kupiec TERRITORY MANAGER [employer] SALES.[employer]I SELLER Work Phone: [facility] 01-12-2024 16:05-0400 Systolic blood pressure 122 mm[Hg] Tyrone Kupiec TERRITORY MANAGER [employer] SALES.LEI SELLER Work Phone: [facility] 01-12-2024 15:49-0400 Body height 182.9 cm Tyrone Kupiec TERRITORY MANAGER [employer]AL SALES.LEI SELLER Work Phone: [facility] 01-12-2024 15:49-0400 Body mass index (BMI) [Ratio] 32.28 kg/m2 [facility] TERRITORY MANAGER GENERAL SALES.[employer] SELLER Work Phone: [facility] 01-12-2024 15:49-0400 Body weight 108 kg [facility] TERRITORY MANAGER GENERAL SALES.LEI SELLER Work Phone: [facility] 01-12-2024 15:49-0400 Heart rate 102 /min [facility] TERRITORY MANAGER [employer]AL SALES.[employer]I SELLER Work Phone: [facility] 01-12-2024 15:49-0400 SaO2% (BldA) [Mass fraction] 98 % [facility] TERRITORY MANAGER [employer]AL SALES.[employer] SELLER Work Phone: [facility] 09-09-2023 09:31-0500 Diastolic blood pressure 80 mm[Hg] Tyrone Kupiec TERRITORY MANAGER [employer] SALES.[employer]I SELLER Work Phone: [facility] 09-09-2023 09:31-0500 Systolic blood pressure 160 mm[Hg] Tyrone Kupiec TERRITORY MANAGER [employer] SALES.[employer]I SELLER Work Phone: [facility] 09-09-2023 09:06-0500 Body height 182.9 cm [facility] TERRITORY MANAGER [employer] SAL[employer].LEI SELLER Work Phone: [facility] 09-09-2023 09:06-0500 Body weight 107.8 kg [facility] TERRITORY MANAGER [employer] SALES.[employer]I SELLER Work Phone: [facility] 09-09-2023 09:06-0500 Heart rate 61 /min [facility] TERRITORY MANAGER GENERAL SALES.LEI SELLER Work Phone: [facility] 09-09-2023 09:06-0500 SaO2% (BldA) [Mass fraction] 98 % [facility] TERRITORY MANAGER GENERAL SALES.LEI SELLER Work Phone: [facility] 07-13-2023 08:06-0500 Body temperature 97.6 [degF] [facility] 07-13-2023 08:06-0500 Diastolic blood pressure 102 mm[Hg] [facility] 07-13-2023 08:06-0500 Heart rate 63 /min [facility] 07-13-2023 08:06-0500 Respiratory rate 20 /min [facility] 07-13-2023 08:06-0500 Systolic blood pressure 158 mm[Hg] [facility] 06-22-2023 12:46-0500 Body height 185.[address] [facility] 06-22-2023 08:17-0500 Body temperature 97 [degF] [facility] 06-22-2023 08:17-0500 Diastolic blood pressure 67 mm[Hg] [facility] 06-22-2023 08:17-0500 Heart rate 59 /min [facility] 06-22-2023 08:17-0500 Respiratory rate 18 /min [facility] 06-22-2023 08:17-0500 Systolic blood pressure 177 mm[Hg] [facility] 06-13-2023 07:39-0500 Body height 180.[address] [facility] 06-13-2023 07:39-0500 Body mass index (BMI) [Ratio] 32.6 kg/m2 [facility] 06-13-2023 07:39-0500 Body temperature 97.7 [degF] [facility] 06-13-2023 07:39-0500 Body weight 106.[address] [facility] 06-13-2023 07:39-0500 Diastolic blood pressure 80 mm[Hg] [facility] 06-13-2023 07:39-0500 Heart rate 63 /min [facility] 06-13-2023 07:39-0500 Respiratory rate 18 /min [facility] 06-13-2023 07:39-0500 SaO2% (BldA) [Mass fraction] 94 % [facility] 06-13-2023 07:39-0500 Systolic blood pressure 158 mm[Hg] [facility] 05-30-2023 19:01-0400 Body temperature 97.7 [degF] Isaiah Daniel APRN.LEI SELLER Work Phone: [facility] 05-30-2023 19:01-0400 Body weight 106.05 kg [facility] TERRITORY MANAGER [employer]AL SALES.LEI SELLER Work Phone: [facility] 05-30-2023 19:01-0400 Diastolic blood pressure 83 mm[Hg] [facility] TERRITORY MANAGER [employer]AL SALES.[employer] SE[employer] Work Phone: [facility] 05-30-2023 19:01-0400 Heart rate 67 /min [facility] TERRITORY MANAGER [employer]AL SALES.LEI SELLER Work Phone: [facility] 05-30-2023 19:01-0400 Respiratory rate 18 /min [facility] TERRITORY MANAGER GENERAL SALES.LEI SELLER Work Phone: [facility] 05-30-2023 19:01-0400 SaO2% (BldA) [Mass fraction] 96 % [facility] TERRITORY MANAGER GENERAL SALES.LEI SELLER Work Phone: [facility] 05-30-2023 19:01-0400 Systolic blood pressure 163 mm[Hg] [facility] TERRITORY MANAGER GENERAL SALES.LEI SELLER Work Phone: [facility] 04-29-2023 16:25-0400 Diastolic blood pressure 84 mm[Hg] [facility] TERRITORY MANAGER [employer]AL SALES.[employer]I SELLER Work Phone: [facility] 04-29-2023 16:25-0400 Systolic blood pressure 150 mm[Hg] [facility] TERRITORY MANAGER [employer]AL SALES.LEI SELLER Work Phone: [facility] 04-29-2023 16:05-0400 Body height 182.9 cm [facility] TERRITORY MANAGER [employer] SALES.LEI SELLER Work Phone: [facility] 04-29-2023 16:05-0400 Body weight 103.42 kg [facility] TERRITORY MANAGER [employer] SALES.LEI SELLER Work Phone: [facility] 04-29-2023 16:05-0400 Heart rate 64 /min [facility] TERRITORY MANAGER [employer] SALES.LEI SELLER Work Phone: [facility] 04-29-2023 16:05-0400 Respiratory rate 16 /min [facility] TERRITORY MANAGER [employer] SALES.LEI SELLER Work Phone: [facility] 04-29-2023 16:05-0400 SaO2% (BldA) [Mass fraction] 97 % Tyrone Kupiec TERRITORY MANAGER GENERAL SALES.[employer] SELLER Work Phone: [facility] 01-25-2023 12:00-0400 Diastolic blood pressure 98 mm[Hg] Tyrone Kupiec TERRITORY MANAGER [employer] SALES.LEI SELLER Work Phone: [facility] 01-25-2023 12:00-0400 Systolic blood pressure 170 mm[Hg] Tyrone Kupiec TERRITORY MANAGER [employer] SALES.[employer]I SELLER Work Phone: [facility] 01-25-2023 11:34-0400 Body height 182.9 cm Tyrone Kupiec TERRITORY MANAGER [employer] SALES.[employer]I SELLER Work Phone: [facility] 01-25-2023 11:34-0400 Body weight 104.33 kg Tyrone Kupiec TERRITORY MANAGER [employer] SALES.[employer] SELLER Work Phone: [facility] 01-25-2023 11:34-0400 Heart rate 63 /min Tyrone Kupiec TERRITORY MANAGER [employer] SALES.[employer] SELLER Work Phone: [facility] 01-25-2023 11:34-0400 SaO2% (BldA) [Mass fraction] 97 % Tyrone Kupiec TERRITORY MANAGER [employer] SALES.[employer] SELLER Work Phone: [facility] 09-24-2022 15:53-0500 Body height 182 cm Tyrone Kupiec TERRITORY MANAGER [employer] SALES.[employer] SELLER Work Phone: [facility] 09-24-2022 15:53-0500 Body weight 102.97 kg Tyrone Kupiec TERRITORY MANAGER GENERAL SALES.[employer]I SELLER Work Phone: [facility] 09-24-2022 15:53-0500 Diastolic blood pressure 87 mm[Hg] Tyrone Kupiec TERRITORY MANAGER [employer] SALES.LEI SELLER Work Phone: [facility] 09-24-2022 15:53-0500 Heart rate 63 /min Tyrone Kupiec TERRITORY MANAGER GENERAL SALES.LEI SELLER Work Phone: [facility] 09-24-2022 15:53-0500 SaO2% (BldA) [Mass fraction] 99 % Tyrone Kupiec TERRITORY MANAGER GENERAL SALES.[employer]I SELLER Work Phone: [facility] 09-24-2022 15:53-0500 Systolic blood pressure 161 mm[Hg] Tyrone Kupiec TERRITORY MANAGER [employer]AL SALES.[employer]I SELLER Work Phone: [facility] 05-28-2022 16:12-0400 Diastolic blood pressure 100 mm[Hg] Tyrone Kupiec TERRITORY MANAGER GENERAL SALES.LEI SELLER Work Phone: [facility] 05-28-2022 16:12-0400 Systolic blood pressure 160 mm[Hg] Tyrone Kupiec TERRITORY MANAGER GENERAL SALES.LEI SELLER Work Phone: [facility] 05-28-2022 15:44-0400 Body weight 101.06 kg Tyrone Kupiec TERRITORY MANAGER GENERAL SALES.LEI SELLER Work Phone: [facility] 05-28-2022 15:44-0400 Heart rate 61 /min Tyrone Kupiec TERRITORY MANAGER GENERAL SALES.LEI SELLER Work Phone: [facility] 05-28-2022 15:44-0400 SaO2% (BldA) [Mass fraction] 97 % Tyrone Kupiec TERRITORY MANAGER GENERAL SALES.LEI SELLER Work Phone: [facility] 11-25-2021 16:29-0400 Diastolic blood pressure 80 mm[Hg] Tyrone Kupiec TERRITORY MANAGER GENERAL SALES.LEI SELLER Work Phone: [facility] 11-25-2021 16:29-0400 Systolic blood pressure 140 mm[Hg] Tyrone Kupiec TERRITORY MANAGER GENERAL SALES.LEI SELLER Work Phone: [facility] 11-25-2021 15:52-0400 Body height 181 cm Tyrone Kupiec TERRITORY MANAGER GENERAL SALES.LEI SELLER Work Phone: [facility] 11-25-2021 15:52-0400 Body weight 100.15 kg Tyrone Kupiec TERRITORY MANAGER GENERAL SALES.LEI SELLER Work Phone: [facility] 11-25-2021 15:52-0400 Heart rate 61 /min Tyrone Soleonila TERRITORY MANAGER GENERAL SALES.LEI SELLER Work Phone: [facility] 11-25-2021 15:52-0400 SaO2% (BldA) [Mass fraction] 96 % Tyrone Hendersonsubha TERRITORY MANAGER GENERAL SALES.LEI SELLER Work Phone: [facility] 02-10-2017 15:02-0400 BMI (Body Mass Index) 29.75 kg/m2 Troy Monsivais MD [facility] [employer] Work Phone: 02-10-2017 15:02-0400 Body Temperature 98.1 [degF] Troy Monsivais MD [facility] [employer] Work Phone: 02-10-2017 15:02-0400 BP Diastolic 96 mm[Hg] Troy Monsivais MD [facility] [employer] Work Phone: 02-10-2017 15:02-0400 BP Systolic 144 mm[Hg] Troy Monsivais MD [facility] [employer] Work Phone: 02-10-2017 15:02-0400 Height 182.88 cm Troy Monsivais MD [facility] Work Phone: 02-10-2017 15:02-0400 Pulse (Heart Rate) 59 /min Troy Monsivais MD [facility] Work Phone: 02-10-2017 15:02-0400 Respiratory Rate 20 /min Troy Monsivais MD [facility] Work Phone: 02-10-2017 15:02-0400 Weight 99.52 kg Troy Monsivais MD [facility] Work Phone: 11-03-2016 14:08-0400 BMI (Body Mass Index) 30.43 kg/m2 Michaela Orlando [facility] [employer] [facility] Work Phone: 11-03-2016 14:08-0400 Body Temperature 98.49 [degF] Michaela Perry [facility] [employer] [facility] Work Phone: 11-03-2016 14:08-0400 Body Temperature 98.5 [degF] [facility], [facility] Work Phone: 11-03-2016 14:08-0400 BP Diastolic 87 mm[Hg] Michaela Perry [facility] zach [employer], [facility] Work Phone: 11-03-2016 14:08-0400 BP Systolic 138 mm[Hg] Michaela Perry [facility] zach [facility], [facility] Work Phone: 11-03-2016 14:08-0400 BSA (Body Surface Area) 2.24 m2 Michaela Perry [facility], [facility] Work Phone: 11-03-2016 14:08-0400 Height 182.88 cm Michaela Perry [facility] [email or web address], [facility] Work Phone: 11-03-2016 14:08-0400 Pulse (Heart Rate) 73 /min Michaela Perry [facility] edical [facility] Work Phone: 11-03-2016 14:08-0400 Pulse Oximetry 94 % Michaelajose Perry [facility], [facility] Work Phone: 11-03-2016 14:08-0400 Respiratory Rate 16 /min Michaela Perry [facility] ical [email or web address], [facility] Work Phone: 11-03-2016 14:08-0400 Weight 101.79 kg Michaela [facility] Work Phone: Encounters Encounter Date Encounter Type Care Provider Facility Start: 02-22-2025 ambulatory [facility] Facility:[facility] Start: 01-07-2025 End: 01-09-2025 ambulatory Tyrone Gay TERRITORY MANAGER [employer] SAL[employer] Work Phone: Endocrinology Comment on above: reschedule appt Start: 11-15-2024 End: 11-20-2024 Telephone encounter Tyrone Gay APRN.LEI SELLER Work Phone: Endocrinology Comment on above: Received Outside Med ical Records Start: 11-09-2024 End: 11-09-2024 Telephone encounter Tyrone Solorene TERRITORY MANAGER GENERAL SALES.[employer] SE[employer] Work Phone: Endocrinology Comment on above: Medical Release Requ est Start: 10-19-2024 End: 10-19-2024 ambulatory [facility] Facility:[facility] Start: 10-19-2024 End: 10-19-2024 Patient encounter procedure Tyrone [facility] TERRITORY MANAGER GENERAL SALES.[employer]I SELLER Work Phone: Endocrinology Comment on above: Type 1 diabetes fernando itus with hypoglycemia and without coma (HCC) (Primary Dx); Primary hypertension; Obesity, Class I, BMI 30-34.9; Encounter for screening for malignant neoplasm of prostate Start: 08-21-2024 End: 08-21-2024 ambulatory Tyrone [facility] TERRITORY MANAGER GENERAL SALES.[employer] SELL[employer] Work Phone: Endocrinology Comment on above: Omnipod Start: 08-10-2024 End: 08-14-2024 Telephone encounter Inés Delacruz RN Work Phone: Diabetic Education [facility] Comment on above: Patient Question Start: 07-18-2024 End: 07-18-2024 ambulatory [facility] Facility:[facility] Start: 07-18-2024 End: 07-18-2024 Patient encounter procedure Tyrone [facility] TERRITORY MANAGER GENERAL SALES.[employer]I SELLER Work Phone: Endocrinology Comment on above: Type 1 diabetes fernando itus with hypoglycemia and without coma (HCC) (Primary Dx); Primary hypertension; Obesity, Class I, BMI 30-34.9; Insulin pump status Start: 05-01-2024 ambulatory [facility] Facility:[facility] Start: 04-17-2024 End: 04-17-2024 ambulatory [facility] Facility:[facility] Start: 04-17-2024 End: 04-17-2024 Patient encounter procedure Tyrone [facility] TERRITORY MANAGER GENERAL SALES.[employer]I SELL[employer] Work Phone: Endocrinology Comment on above: Type 1 diabetes fernando itus with hypoglycemia and without coma (HCC) (Primary Dx); Primary hypertension; Obesity, Class I, BMI 30-34.9; Insulin pump status Start: 02-08-2024 Telephone encounter Tyrone singh TERRITORY MANAGER GENERAL SALES.[employer]I SELLER Work Phone: Endocrinology Comment on above: Results Start: 02-07-2024 End: 02-07-2024 ambulatory [facility]ONE GAY [facility] [facility] Start: 01-12-2024 End: 01-12-2024 ambulatory TYRONE GAY Facility:[facility] Start: 01-12-2024 End: 01-12-2024 Patient encounter procedure Tyrone Hendersonc TERRITORY MANAGER GENERAL SALES.LEI SELLER Work Phone: Endocrinology Comment on above: Type 1 diabetes fernando itus with hypoglycemia and without coma (HCC) (Primary Dx); Primary hypertension; Obesity, Class I, BMI 30-34.9; Insulin pump status; Encounter for screening for malignant neoplasm of prostate Start: 12-21-2023 ambulatory Tyrone Henderson c TERRITORY MANAGER GENERAL SALES.[employer]I SELLER Work Phone: Endocrinology Comment on above: omnipod persciption Start: 12-19-2023 ambulatory Tyrone Henderson c TERRITORY MANAGER GENERAL SALES.LEI SELLER Work Phone: Endocrinology Start: 12-19-2023 Patient encounter procedure Tyrone Gay TERRITORY MANAGER GENERAL SALES.LEI SELLER Work Phone: Endocrinology Comment on above: appointment Start: 12-13-2023 Telephone encounter Tyrone singh TERRITORY MANAGER GENERAL SALES.LEI SELLER Work Phone: Endocrinology Comment on above: [facility] Start: 12-01-2023 Refill Tyrone Henderson c TERRITORY MANAGER GENERAL SALES.LEI SELLER Work Phone: Endocrinology Comment on above: Med Change Request Start: 09-09-2023 End: 09-09-2023 Patient encounter procedure Tyrone Hendersonc TERRITORY MANAGER GENERAL SALES.LEI SELLER Work Phone: Endocrinology Comment on above: Type 1 diabetes fernando itus with hypoglycemia and without coma (HCC) (Primary Dx); Primary hypertension; Obesity, Class I, BMI 30-34.9; Insulin pump status Start: 07-13-2023 Non-patient / Non-visit After Hours [facility] Start: 07-13-2023 End: 07-14-2023 ambulatory [facility] Work Phone: Start: 07-13-2023 End: 07-14-2023 Discharged Recurring [facility] Work Phone: Start: 06-22-2023 Non-patient / Non-visit After Hours [facility] Start: 06-22-2023 End: 06-30-2023 ambulatory [facility] Work Phone: Start: 06-22-2023 End: 06-30-2023 Discharged Recurring [facility] Work Phone: Start: 06-13-2023 End: 06-13-2023 ambulatory [facility] Work Phone: Start: 06-13-2023 End: 06-13-2023 Patient encounter procedure [facility] Specimen Work Phone: Start: 06-07-2023 ambulatory Tyrone mascorro TERRITORY MANAGER GENERAL SALES.LEI SELLER Work Phone: Endocrinology Comment on above: Leg injury Start: 06-07-2023 Telephone encounter Tyrone singh TERRITORY MANAGER GENERAL SALES.LEI SELLER Work Phone: Endocrinology Comment on above: Orders Start: 05-30-2023 End: 05-30-2023 Office outpatient visit 15 minutes Isaiah Daniel TERRITORY MANAGER GENERAL SALES.LEI SELLER Work Phone: [facility] Comment on above: Cellulitis of skin ( Primary Dx) Start: 05-02-2023 Telephone encounter Inés alfaro RN Work Phone: Diabetic Education [facility] Comment on above: insulin pump questio n Start: 04-29-2023 End: 04-29-2023 Patient encounter procedure Tyrone Gay TERRITORY MANAGER GENERAL SALES.LEI SELLER Work Phone: Endocrinology Comment on above: Type 1 diabetes fernando itus without complication (HCC) (Primary Dx); Hypoglycemia due to type 1 diabetes mellitus (HCC); Primary hypertension; Obesity, Class I, BMI 30-34.9; Insulin pump status Start: 01-25-2023 End: 01-25-2023 Patient encounter procedure Tyrone Kupiec TERRITORY MANAGER GENERAL SALES.LEI SELLER Work Phone: Endocrinology Comment on above: Type 1 diabetes fernando itus without complication (HCC) (Primary Dx); Hypoglycemia due to type 1 diabetes mellitus (HCC); Primary hypertension; Obesity, Class I, BMI 30-34.9; Insulin pump status Start: 12-14-2022 Telephone encounter Inés alfaro RN Work Phone: [facility] Comment on above: Insulin pump start f ollow up Start: 12-01-2022 ambulatory Tyrone Soie c TERRITORY MANAGER GENERAL SALES.LEI SELLER Work Phone: Endocrinology Comment on above: cancel drugs etc Start: 11-26-2022 End: 11-26-2022 Nursing evaluation of patient and report Inés Delacruz RN Work Phone: [facility] Comment on above: Type 1 diabetes fernando itus without complication (HCC) Start: 11-08-2022 ambulatory Tyrone Henderson c TERRITORY MANAGER GENERAL SALES.LEI SELLER Work Phone: [facility] Start: 11-08-2022 Patient encounter procedure Tyrone Hendersonc TERRITORY MANAGER GENERAL SALES.LEI SELLER Work Phone: Endocrinology Comment on above: appointment Start: 11-01-2022 ambulatory Tyrone Soie c TERRITORY MANAGER GENERAL SALES.LEI SELLER Work Phone: Endocrinology Comment on above: [employer] Start: 10-31-2022 Refill Tyrone Henderson c TERRITORY MANAGER GENERAL SALES.LEI SELLER Work Phone: Endocrinology Comment on above: Refill Request Start: 09-24-2022 End: 09-24-2022 Patient encounter procedure Tyrone Soiec TERRITORY MANAGER GENERAL SALES.LEI SELLER Work Phone: Endocrinology Comment on above: Type 1 diabetes fernando itus without complication (HCC) (Primary Dx); Hypoglycemia; Primary hypertension; Obesity, Class I, BMI 30-34.9 Start: 08-23-2022 ambulatory Tyrone Soie c TERRITORY MANAGER GENERAL SALES.LEI SELLER Work Phone: Endocrinology Comment on above: insulin pump Start: 06-11-2022 Telephone encounter Tyrone singh TERRITORY MANAGER GENERAL SALES.LEI SELLER Work Phone: Endocrinology Comment on above: CGM with Physician's order ([facility] Medical) Start: 05-28-2022 End: 05-28-2022 Patient encounter procedure Tyrone Gay TERRITORY MANAGER GENERAL SALES.LEI SELLER Work Phone: Endocrinology Comment on above: Type 1 diabetes fernando itus without complication (HCC) (Primary Dx); Hypoglycemia; Class 1 obesity with serious comorbidity and body mass index (BMI) of 30.0 to 30.9 in adult, unspecified obesity type Start: 04-26-2022 Telephone encounter Tyrone singh TERRITORY MANAGER GENERAL SALES.LEI SELLER Work Phone: Endocrinology Comment on above: [facility] Form (Omnipod 5) Start: 04-08-2022 ambulatory Tyrone mascorro TERRITORY MANAGER GENERAL SALES.LEI SELLER Work Phone: Endocrinology Comment on above: blood work results Start: 03-05-2022 End: 03-05-2022 Nursing evaluation of patient and report Inés Delacruz RN Work Phone: Endocrinology Comment on above: Type 1 diabetes fernando itus without complication (HCC) Start: 12-15-2021 Refill Tyrone mascorro TERRITORY MANAGER GENERAL SALES.LEI SELLER Work Phone: Endocrinology Comment on above: Refill Request Start: 11-25-2021 End: 11-25-2021 Patient encounter procedure Tyrone Gay TERRITORY MANAGER GENERAL SALES.LEI SELLER Work Phone: Endocrinology Comment on above: Type 1 diabetes fernando itus without complication (HCC) (Primary Dx); Hypoglycemia; Class 1 obesity with serious comorbidity and body mass index (BMI) of 30.0 to 30.9 in adult, unspecified obesity type Start: 11-20-2021 Refill Tyrone Henderson c TERRITORY MANAGER GENERAL SALES.LEI SELLER Work Phone: Endocrinology Comment on above: Refill Request Procedures Date Procedure Procedure Detail Performing Clinician Start: 10-19-2024 Hemoglobin A1c/Hemoglobin.total in Blood Tyrone Hendersonc TERRITORY MANAGER GENERAL SALES.LEI SELLER Work Phone: Start: 07-18-2024 Hemoglobin A1c/Hemoglobin.total in Blood Tyrone Kupiec TERRITORY MANAGER GENERAL SALES.LEI SELLER Work Phone: Start: 04-17-2024 Hemoglobin A1c/Hemoglobin.total in Blood [facility] TERRITORY MANAGER GENERAL SALES.LEI SELLER Work Phone: Start: 01-12-2024 Hemoglobin A1c/Hemoglobin.total in Blood Tyrone Kupiec TERRITORY MANAGER GENERAL SALES.LEI SELLER Work Phone: Start: 09-09-2023 Hemoglobin A1c/Hemoglobin.total in [facility] MANAGER GENERAL SALES.LEI SELLER Work Phone: Start: 06-13-2023 Anaerobic microbial culture Start: 06-13-2023 Investigation of transfusion reaction Start: 06-13-2023 Microbial culture, routine Start: 04-29-2023 Hemoglobin A1c/H[facility]oglobin.total [facility] T[facility]ITORY MANAGER GENERAL SALES.LEI SELLER Work Phone: Start: 09-24-2022 Hemoglobin A1c/Hemoglobin.total in Blood [facility] TERRITORY MANAGER GENERAL SALES.LEI SELLER Work Phone: Start: 05-28-2022 Hemoglobin A1c/Hemoglobin.total in Blood [facility] TERRITORY MANAGER GENERAL SALES.LEI SELLER Work Phone: Start: 11-25-2021 Hemoglobin A1c/Hemoglobin.total in Blood [facility] TERRITORY MANAGER GENERAL SALES.LEI SELLER Work Phone: Start: 02-10-2017 End: 02-10-2017 Dietary management education, guidance, and counseling Dot Trejo Start: 11-03-2016 End: 11-03-2016 Dietary management education, guidance, and counseling Michaela Perry Start: 04-03-[address] [facility] TERRITORY MANAGER GENERAL SALES.LEI SELLER Work Phone: Plan of Treatment Date Care Activity Detail Author Start: 02-06-2029 Prostate specific antigen measurement Prostate Cancer Screening Discussion [facility] Start: 04-21-2025 Hemoglobin A1c measurement HbA1C [facility] Start: 04-05-2025 End: 04-05-2025 Patient encounter procedure 04/05/2025 3:45 PM EDT Office Visit Endocrinology [address] [address] Tyrone Gay APRN.LEI SELLER [address] [address] follow up Endocrinology Comment on above: follow up Start: 04-01-2025 Influenza vaccination Influenz a Vaccine (Season Ended) [facility] Start: 02-06-2025 Hepatitis B screening Urine Albumin:Creatinine Ratio [facility] Start: 02-06-2025 Hepatitis B surface antibody level LDL Cholesterol [facility] Start: 01-22-2025 End: 01-22-2025 Patient encounter procedure 01/22/2025 1:00 PM EDT Office Visit Endocrinology [address] [address] Tyrone Gay APRN.LEI SELLER [address] [address] follow up Endocrinology Comment on above: follow up Start: 01-16-2025 Hemoglobin A1c measurement HbA1C [facility] Start: 10-19-2024 End: 01-18-2025 PSA/PROSTATE SPECIFIC ANTIGEN SCREENING PSA/PROSTATE SPECIFIC ANTIGEN SCREENING Lab Routine Encounter for screening for malignant neoplasm of prostate Expected: 10/19/2024 (Approximate), Expires: 01/18/2025 [facility] Work Phone: Comment on above: Expected: 10/19/2024 (Approximate), Expires: 01/18/2025 Start: 10-19-2024 End: 10-19-2024 Patient encounter procedure 10/19/2024 11:30 AM EDT Office Visit Endocrinology [address] [address] Tyrone Gay APRN.LEI SELLER [address] [address] 3 month follow up Endocrinology Comment on above: 3 month follow up Start: 10-15-2024 Hemoglobin A1c measurement HbA1C [facility] Start: 10-09-2024 End: 01-08-2025 Comprehensive metabolic 2000 panel - Serum or Plasma COMPREHENSIVE METABOLIC PANEL Lab Routine Type 1 diabetes mellitus with hypoglycemia and without coma (HCC) Expected: 10/09/2024 (Approximate), Expires: 01/08/2025 [facility] Work Phone: Comment on above: Expected: 10/09/2024 (Approximate), Expires: 01/08/2025 Start: 10-09-2024 End: 01-08-2025 Hemoglobin A1c in Blood HEMOGLOBIN A1C Lab Routine Type 1 diabetes mellitus with hypoglycemia and without coma (HCC) Expected: 10/09/2024 (Approximate), Expires: 01/08/[address] [facility] Comment on above: Expected: 10/09/2024 (Approximate), Expires: 01/08/2025 Start: 10-09-2024 End: 01-08-2025 Lipid 1996 panel - Serum or Plasma LIPID PANEL BASIC Lab Routine Type 1 diabetes mellitus with hypoglycemia and without coma (HCC) Expected: 10/09/2024 (Approximate), Expires: 01/08/[address] [facility] Comment on above: Expected: 10/09/2024 (Approximate), Expires: 01/08/2025 Start: 10-09-2024 End: 01-08-2025 Microalbumin/Creatinine [Mass Ratio] in Urine ALBUMIN/CREATININE RATIO, URINE Lab Routine Type 1 diabetes mellitus with hypoglycemia and without coma (HCC) Expected: 10/09/2024 (Approximate), Expires: 01/08/[address] [facility] Comment on above: Expected: 10/09/2024 (Approximate), Expires: 01/08/2025 Start: 09-09-2024 Diabetic foot examination Diabetic Foot Exam [facility] Start: 08-01-2024 Advance Directive Discussion Advance Directive Discussion [facility] Start: 07-18-2024 End: 07-18-2024 Patient encounter procedure 07/18/2024 11:30 AM EST Office Visit Endocrinology [address] [address] Tyrone Gay, OLGA.LEI SELLER [address] [address] 3 month follow up Endocrinology Comment on above: 3 month follow up Start: 07-13-2024 Hemoglobin A1c measurement HbA1C [facility] Start: 04-17-2024 End: 04-17-2024 Patient encounter procedure 04/17/2024 3:45 PM EDT Office Visit Endocrinology [address] [address] Tyrone Gay APRN.LEI SELLER [address] [address] 3 MO dm FOLLOW UP Endocrinology Comment on above: 3 MO dm FOLLOW UP Start: 04-01-2024 Covid-19 Vaccine ( season) Covid-19 Vaccine () [facility] Start: 04-01-2024 Covid-19 Vaccine () Covid-19 Vaccine () [facility] Start: 04-01-2024 [facility] Start: 03-09-[facility]24 Hemoglobin A1c measurement HbA1C [facility] Start: 01-22-2024 Hepatitis B surface antibody level LDL CHOLESTEROL [facility] Start: 01-17-2024 End: 04-17-2024 Comprehensive metabolic 2000 panel - Serum or Plasma COMPREHENSIVE METABOLIC PANEL Lab Routine Type 1 diabetes mellitus with hypoglycemia and without coma (HCC) Expected: 01/17/2024 (Approximate), Expires: 04/17/2024 [facility] Work Phone: Comment on above: Expected: 01/17/2024 (Approximate), Expires: 04/17/2024 Start: 01-17-2024 End: 04-17-2024 Lipid 1996 panel - Serum or Plasma LIPID PANEL BASIC Lab Routine Type 1 diabetes mellitus with hypoglycemia and without coma (HCC) Expected: 01/17/2024 (Approximate), Expires: 04/17/[address] [facility] Comment on above: Expected: 01/17/2024 (Approximate), Expires: 04/17/2024 Start: 01-17-2024 End: 04-17-2024 Microalbumin/Creatinine [Mass Ratio] in Urine ALBUMIN/CREATININE RATIO, URINE Lab Routine Type 1 diabetes mellitus with hypoglycemia and without coma (HCC) Expected: 01/17/2024 (Approximate), Expires: 04/17/[address] [facility] Comment on above: Expected: 01/17/2024 (Approximate), Expires: 04/17/2024 Start: 01-17-2024 End: 04-17-2024 PSA/PROSTATE SPECIFIC ANTIGEN SCREENING PSA/PROSTATE SPECIFIC ANTIGEN SCREENING Lab Routine Encounter for screening for malignant neoplasm of prostate Expected: 01/17/2024 (Approximate), Expires: 04/17/[address] [facility] Comment on above: Expected: 01/17/2024 (Approximate), Expires: 04/17/2024 Start: 01-17-2024 End: 04-17-2024 Thyrotropin [Units/volume] in Serum or Plasma THYROID STIMULATING HORMONE Lab Routine Type 1 diabetes mellitus with hypoglycemia and without coma (HCC) Expected: 01/17/2024 (Approximate), Expires: 04/17/[address] [facility] Comment on above: Expected: 01/17/2024 (Approximate), Expires: 04/17/2024 Start: 01-12-2024 End: 01-12-2024 Patient encounter procedure 01/12/2024 3:45 PM EDT Office Visit Endocrinology [address] [address] Tyrone Gay, TERRITORY MANAGER GENERAL SALES.LEI SELLER [address] [address] Follow up Endocrinology Comment on above: Follow up Start: 12-27-2023 End: 12-27-2023 Patient encounter procedure 12/27/2023 10:30 AM EDT Office Visit Endocrinology [address] [address] Tyrone Gay, TERRITORY MANAGER GENERAL SALES.LEI SELLER [address] [address] Follow up Endocrinology Comment on above: Follow up Start: 10-28-2023 Hemoglobin A1c/Hemoglobin.total in Blood HbA1C [facility] Start: 08-01-2023 Advance Directive Discussion Advance Directive Discussion [facility] Start: 08-01-2023 Behavioral Health Screening Behavioral Health Screening [facility] Start: 08-01-2023 Depression Assessment Depression Ass essment [facility] Start: 07-23-2023 Hemoglobin A1c/Hemoglobin.total in Blood HBA1C [facility] Start: 06-13-2023 Anaerobic microbial culture Anaerobic Culture [facility] Start: 06-13-2023 Source specific culture [facility] Start: 04-01-2023 Covid-19 Vaccine ( season) Covid-19 Vaccine () [facility] Start: 04-01-2023 Influenza vaccination C [facility] Start: 03-24-2023 Hemoglobin A1c/Hemoglobin.total in Blood HBA1C [facility] Start: 01-28-2023 Influenza vaccination INFLUENZA (#1) [facility] Comment on above: Postponed from 04/01 (Declined at this time) Start: 01-22-2023 End: 03-24-2023 ALBUMIN/CREAT RATIO RND UR ALBUMIN/CREAT RATIO RND UR Lab Routine Type 1 diabetes mellitus without complication (HCC) Expected: 01/22/2023 (Approximate), Expires: 03/24/2023 [facility] Work Phone: Comment on above: Expected: 01/22/2023 (Approximate), Expires: 03/24/2023 Start: 01-22-2023 End: 03-24-2023 Comprehensive metabolic 2000 panel - Serum or Plasma COMP METABOLIC PANEL Lab Routine Type 1 diabetes mellitus without complication (HCC) Expected: 01/22/2023 (Approximate), Expires: 03/24/2023 [facility] Work Phone: Comment on above: Expected: 01/22/2023 (Approximate), Expires: 03/24/2023 Start: 01-22-2023 End: 03-24-2023 Hemoglobin A1c in Blood HGB A1C Lab Routine Type 1 diabetes mellitus without complication (HCC) Expected: 01/22/2023 (Approximate), Expires: 03/24/2023 [facility] Work Phone: Comment on above: Expected: 01/22/2023 (Approximate), Expires: 03/24/2023 Start: 01-22-2023 End: 03-24-2023 Lipid 1996 panel - Serum or Plasma LIPID PANEL BASIC Lab Routine Type 1 diabetes mellitus without complication (HCC) Expected: 01/22/2023 (Approximate), Expires: 03/24/2023 [facility] Work Phone: Comment on above: Expected: 01/22/2023 (Approximate), Expires: 03/24/2023 Start: 12-08-2022 Hepatitis B screening URINE ALBUMIN:CREATININE RATIO [facility] Start: 12-08-2022 Hepatitis B surface antibody level LDL CHOLESTEROL [facility] Start: 11-26-2022 Hemoglobin A1c/Hemoglobin.total in Blood HBA1C [facility] Start: 08-31-2022 3 comp foot exam completed DIABETIC FOOT EXAM [facility] Comment on above: Postponed from 11/11 (Declined at this time) Start: 08-01-2022 ADVANCE DIRECTIVE DISCUSSION ADVANCE DIRECTIVE DISCUSSION [facility] Start: 08-01-2022 DEPRESSION ASSESSMENT DEPRESSION ASS ESSMENT [facility] Start: 05-27-2022 Hemoglobin A1c/Hemoglobin.total in Blood HBA1C [facility] Start: 04-01-2022 Influenza vaccination C [facility] Start: 11-18-2021 Hemoglobin A1c/Hemoglobin.total in Blood HBA1C [facility] Start: 11-11-2021 3 comp foot exam completed DIABETIC FOOT EXAM [facility] Start: 11-11-2021 Hepatitis B screening URINE ALBUMIN:CREATININE RATIO [facility] Start: 11-11-2021 Hepatitis B surface antibody level LDL CHOLESTEROL [facility] Start: 08-01-2021 ADVANCE DIRECTIVE DISCUSSION ADVANCE DIRECTIVE DISCUSSION [facility] Start: 08-01-2021 DEPRESSION ASSESSMENT DEPRESSION ASS ESSMENT [facility] Start: 2021 PNEUMOVAX AGE 65 AND OVER WITH 5YR LOOKBACK (#1) PNEUMOVAX AGE 65 AND OVER WITH 5YR LOOKBACK (#1) [facility] Start: 06-01-2021 Medicare Annual Wellness Visit Medicare Annual Wellness Visit [facility] Start: 03-02-2017 End: 03-02-2017 Appointment Appointment [facility] Work Phone: Start: 02-10-2017 End: 02-10-2017 Appointment Appointment [facility] Work Phone: Start: 2016 Hepatitis B Vaccine (1 of 3 - Risk 3-dose series) Hepatitis B Vaccine (1 of 3 - Risk 3-dose series) [facility] Start: 2016 RSV Vaccine (1 - 1-d ose 60+ series) RSV Vaccine (1 - 1-dose 60+ series) [facility] Start: 2016 RSV Vaccine (1 - Ris k 60-74 years 1-dose series) RSV Vaccine (1 - Risk 60-74 years 1-dose series) [facility] Start: 04-03-[address] [facility] Start: 04-03-2015 COLORECTAL CANCER SCREENING COLORECTAL CANCER SCREENING [facility] Start: 04-03-2015 Screening for malign ant neoplasm of colon [facility] Start: 08-02-2011 Urine microalbumin profile DTaP,Tdap,Td Vaccine (1 - Tdap) [facility] Start: 2011 PROSTATE CANCER SCREENING DISCUSSION PROSTATE CANCER SCREENING DISCUSSION [facility] Start: 2011 Prostate specific antigen measurement Prostate Cancer Screening Discussion [facility] Start: 2006 SHINGRIX VACCINE (1 of 2) SHINGRIX VACCINE (1 of 2) [facility] Start: 2001 COLOGUARD (FIT-DNA) COLOGUARD (FIT-D NA) [facility] Start: [address] COLONOGRAPHY [facility] Start: 2001 FECAL OCCULT BLOOD FECAL OCCULT BLOO D [facility] Start: 2001 Screening for malign ant neoplasm of colon [facility] Start: 2001 SIGMOIDOSCOPY SIGMOIDOSCOPY [facility] Start: 1975 Pneumococcal Vaccine : 50+ (1 of 2 - PCV) Pneumococcal Vaccine: 50+ (1 of 2 - PCV) [facility] Start: 1975 Urine microalbumin profile [facility] Start: 1974 ANNUAL PCP TEAM WRAPPER LEAF INSPECTOR ASHIA DISEASE VISIT ANNUAL PCP TEAM CHRONIC DISEASE VISIT [facility] Start: 1974 Anxiety Screening Anxiety Screening [facility] Start: 1974 BP CONTROLLED (<130/80) BP CONTROLLE D (<130/80) [facility] Start: 1974 Depression Screening Depression Scre ening [facility] Start: 1974 HEPATITIS C SCREENING HEPATITIS C [facility] Start: 1974 Hepatitis C screening Hepatitis C [facility] Start: 1974 HIV SCREENING HIV SCREENING [facility] Start: 1968 Adult depression screening assessment DEPRESSION SCREENING [facility] Start: 1966 Glaucoma screening Dilated Retinal E xam [facility] Start: 1966 Hepatitis C antibody , confirmatory test DILATED RETINAL EXAM [facility] Start: 1962 Pneumococcal Vaccine : 65+ (1 - PCV) Pneumococcal Vaccine: 65+ (1 - PCV) [facility] Start: 1962 Pneumococcal Vaccine : 65+ (1 of 2 - PCV) Pneumococcal Vaccine: 65+ (1 of 2 - PCV) [facility] Start: 1962 PNEUMOCOCCAL: 65+ (1 - PCV) PNEUMOCOCCAL: 65+ (1 - PCV) [facility] Start: 1961 COVID-19 VACCINE (#1) COVID-19 VACCI NE (#1) [facility] Start: 1961 COVID-19 VACCINE (1) COVID-19 VACCIN E (1) [facility] Start: 1956 COVID-19 VACCINE (#1) COVID-19 VACCI NE (#1) [facility] Patient Education WEIGHT%20MANAGEMENT [facility] [employer] [facility] Work Phone: [facility] Payers Date Payer Category Payer Self-pay [id number] 2021 Medicare MEDICARE MEDICAR E A AND B [id number] 2021-Present [phone] [place] [address] Medicare [id number] 2021 Medicare [id number] 2021 Private Health Insurance MMO MED ICARE SUPPLEMENT [id number] 2021 Unknown MMO MMO MEDICARE SUPPLEMENT [id number] 2021-Present [phone] [address] [place] [address] Indemnity [id number] 2021 Medicare [id number] 2021 Unknown [id number] 2018 Unknown [id number] Medicare MEDICARE PART A B [id number] Unknown [id number] Unknown [id number] Social History Date Type Detail Facility Start: 04-15-2014 End: 05-28-2022 Tobacco smoking status NHIS Never smoked tobacco [facility] Work Phone: Start: 04-15-2014 End: 05-28-2022 Tobacco use and exposure Smokeless tobacco non-user [facility] Work Phone: Start: 05-20-2021 End: 10-19-2024 Alcohol intake Current non-drinker of alcohol (finding) [facility] Start: 1955 Sex Assigned At Not on file [facility] Start: 11-15-2021 End: 05-28-2022 Exposure to SARS-CoV-2 (event) Not sure [facility] Start: 01-25-2023 End: 04-29-2023 History of Social function [facility] Start: 01-25-2023 End: 04-29-[address] [facility] National Score (1-100), lower number is lower risk [address] [facility] Start: 09-29-2020 End: 06-22-2023 Tobacco smoking status NHIS Unknown if ever smoked [facility] Start: 1955 Sex Assigned At Male W [facility] Medical Equipment Procedure Code Equipment Code Equipment Original Text Equipment Identifier Dates [id number] Start: 11-11-2020 End: 04-29-2023 Comment on above: use 1 PEN NEEDLE to inject MEDICATION subcutaneously four times a day Use with insulin inj ections 4 injections daily. DX: E10.65. Use 4 pen needles da gabrielle USE 4 PEN NEEDLES DA GABRIELLE IF INSULIN PUMP FAILS Functional Status Date Assessment Result Facility 04-29-2014 Are you deaf, or do you have serious difficulty hearing No 04/29/2014 9:38 AM Sahil Gonzales [facility] 04-29-2014 Are you blind, or do you have serious difficulty seeing, even when wearing glasses No 04/29/2014 9:38 AM Sahil Gonzales [facility] 04-29-2014 Do you have serious difficulty walking or climbing stairs No 04/29/2014 9:38 AM Sahil Gonzales [facility] 04-29-2014 Do you have difficul ty dressing or bathing No 04/29/2014 9:38 AM Sahil Gonzales [facility] 04-29-2014 Because of a physica l, mental, or emotional condition, do you have difficulty doing errands alone such as visiting a physician's office or shopping No 04/29/2014 9:38 AM Sahil Gonzales [facility] Mental Status Date Assessment Result Facility 04-29-2014 Because of a physica l, mental, or emotional condition, do you have serious difficulty concentrating, remembering, or making decisions No 04/29/2014 9:38 AM Sahil Gonzales [facility] Clinical Notes 11-20-2021 to 01-09-2025 Telephone Encounter - Nahomy Beth RN - 01/09/2025 9:21 AM EDTTelephone Encounter - Nahomy Beth RN - 01/09/2025 9:21 AM EDTTyrone Gay APRN.CNP - 10/19/2024 11:30 AM EDT Note Date & Type Note Facility 01-09-2025 Telephone encounter Note Closed [facility] 01-09-2025 Miscellaneous Notes Closed Please advise. documented in this encounter [facility] 01-08-2025 Telephone encounter Note Please advise. [facility] 11-20-2024 Telephone encounter Note Reviewed. Does not contain any lab results [facility] 11-20-2024 Miscellaneous Notes Reviewed. Does not contain any lab results Outside Medical Records received from [facility] for Continuation of Care. Last encounter Visit on 10/19/2024 (with Tyrone Gay) Medical Records have been uploaded 11/15/24. Medical Records received 11/08/24. Tammy Chavez Cardiology Technologist II Endocrinology & Metabolism [place] F20-X documented in this encounter [facility] 11-15-2024 Telephone encounter Note Outside Medical Records received from [facility] for Continuation of Care. Last encounter Visit on 10/19/2024 (with Tyrone Miles) Medical Records have been uploaded 11/15/24. Medical Records received 11/08/24. Tammy Chavez Cardiology Technologist II Endocrinology & Metabolism [place] F20-X [facility] 11-09-2024 Telephone encounter Note Received a medical records release from [facility]. Forwarded request to [facility] Medical Records to process via fax at [phone]. Transmission ok. Closed. [facility] 11-09-2024 Miscellaneous Notes Received a medical records release from [facility]. Forwarded request to [facility] Medical Records to process via fax at [phone]. Transmission ok. Closed. documented in this encounter [facility] 10-19-2024 History of Presen t illness Narrative Reason for Consultation: DM Type 1 Referring Physician: SELF HISTORY OF PRESENT ILLNESS Mr. Lance is a 69 year old male presenting here today for a follow up of DM Type 1. As I recall, he was initially diagnosed with diabetes August 2016. LV 07/18/24 A1C today is 6.9 History of diabetes, obesity, hypertension Currently on a cleanse which consists of 21 pills per day for 7 days, no meat, dairy. Lost 10 lb and using less insulin. Going on bike trip to [place]. +HOSEA antibody in 2018 Started Omnipod 5 insulin pump 11/26/22 Current diabetes regimen is as follows: Glucagon: baqsimi Basal insulin for back up: Toujeo Humalog via Omnipod 5 pump Basal rate: 00:00= 0.3 Bolus: Insulin:carb ratio 00:00= 5 1000=8 4 pm=6 Sensitivity 00:00= 35 Blood glucose target 00:00= 120 Insulin duration= 4 hr Automated mode % 100 Basal/day= 21.1 units or 71% Bolus/day= 8.6 units or 29% 0% overrides Previous diabetes medication: jardimaria dolores Glimepiride he is checking his blood glucose with Dexcom G6 CGM he does bring a log book today for review. LDE Blood Sugar Frequency: Dexcom download (10/06/24 to 10/19/24) Target range 72% High 17% Very high 5% Low 5% Very low 1% BG average 145 GMI 6.8% BG ranges lo to 359 BG is stable at goal overnight with occasional low. BG rises gradually between 8 AM and 2 pm then drops lower to 140's. Hypoglycemia frequency: occasionally Hypoglycemia awareness: No; not always sensing Regarding symptoms of hypoglycemia, he is not experiencing any symptoms such as polyuria, polydipsia, nocturia or rapid weight loss or blurry vision, Overall, the patient has no acute complaints at this time. HTN: Switched from lisinopril to valsartan in July due to uncontrolled BP and cough with ELDER. PAST MEDICAL HISTORY Diagnosis Date Diabetes (HCC) Essential hypertension PAST SURGICAL HISTORY Procedure Laterality Date COLONOSCOPY FLX DX W/COLLJ SPEC WHEN PFRMD 04-03-14 LAPS SURG CHOLECYSTECTOMY W/CHOLANGIOGRAPHY 04-17-14 TONSILLECTOMY & ADENOIDECTOMY <AGE 13 FAMILY HISTORY Problem Relation Age of Onset Hypertension Mother Hypertension Father other (traumatic amputation) Father Cancer Paternal Grandmother Cancer Paternal Grandfather Diabetes Maternal Uncle Diabetes Maternal Aunt Social History Tobacco Use Smoking status: Never Smokeless tobacco: Never Substance Use Topics Alcohol use: No Drug use: No Allergies As of Date: 10/19/2024 Allergen Noted Reaction CEPHALEXIN 03/27/2014 Rash LISINOPRIL 07/27/2023 Cough PENICILLINS 03/27/2014 Rash Fully Assessed 10/19/2024 Current Outpatient Medications Medication Sig Dispense Refill insulin pump cart,auto,BT,G6/7 (OMNIPOD 5 G6-G7 PODS, GEN 5,) crtg Use one pod every 72 hr 10 Each 11 valsartan (DIOVAN) 320 mg tablet Take 1 tablet by mouth once daily. 90 tablet 3 amLODIPine (NORVASC) 5 mg tablet Take 1 tablet by mouth once daily. 90 tablet 3 insulin lispro (HUMALOG U-100 INSULIN) 100 unit/mL injection Infuse up to 100 units daily via insulin pump 30 mL 11 Blood-Glucose Sensor (DEXCOM G6 SENSOR) marquis Use one sensor every 10 days, IDDM, E 10.9 3 Each 11 Blood-Glucose Transmitter (DEXCOM G6 TRANSMITTER) marquis Use one transmitter every 3 months, IDDM, E 10.9 1 Each 3 glucagon (BAQSIMI) 3 mg/actuation nasal spray Use 1 Hext in the nose as needed. May repeat after 15 minutes using a new device if there is no response. 2 Each 2 insulin needles, DISPOSABLE, (DROPLET PEN NEEDLE) 31 gauge x 5/16" USE 4 PEN NEEDLES DAILY IF INSULIN PUMP FAILS 400 Each 3 insulin lispro (HUMALOG KWIKPEN INSULIN) 100 unit/mL inject subcutaneously PER RATIO: BREAKFAST 1:6, LUNCH 1:10, DINNER1:12 PLUS SLIDING SCALE *MAX DAILY DOSE 60 UNITS*; if insulin pump fails 60 mL 3 insulin glargine U-300 conc (TOUJEO SOLOSTAR U-300 INSULIN) 300 unit/mL (1.5 mL) Inject 10 Units subcutaneously every morning. If insulin pump fails 3 Each 3 OMNIPOD 5 G6 INTRO KIT, GEN 5, crtg Inject 1 Each subcutaneously as directed. 1 Each 0 Blood-Glucose Meter,Continuous (DEXCOM G6 CEMENT MASON HELPER) misc Use continuously to monitor glucose, IDDM, E 10.9 1 Each 0 No current facility-administered medications for this visit. REVIEW OF SYSTEMS Answers submitted by the patient for this visit: Core Review of Systems (Submitted on 10/19/2024) Nasal Congestion: No Hearing Loss: No Vision Disturbance: No A cough: No Chest pain: No Irregular heartbeat: No Leg Swelling: No Nausea: No Diarrhea: No Black tarry stools: No Difficulty Urinating?: No Joint pain or stiffness: No Muscle aches: No Leg or Foot Discomfort at Night?: No A rash: No Dizziness: No Headaches: No Memory Loss: No Seizures: No PHYSICAL EXAMINATION BP 143/72 Pulse 64 Resp 16 Ht 182.9 cm (6' 0.01") Wt 105.6 kg (232 lb 12.9 oz) SpO2 98% BMI 31.57 kg/m2 Physical Exam Constitutional: Appearance: Normal appearance. He is obese. Cardiovascular: Rate and Rhythm: Normal rate and regular rhythm. Pulmonary: Effort: Pulmonary effort is normal. Breath sounds: Normal breath sounds. Skin: General: Skin is warm and dry. Neurological: Mental Status: He is alert and oriented to person, place, and time. Psychiatric: Mood and Affect: Mood normal. Behavior: Behavior normal. DATA Creatinine Date Value Ref Range Status 02/07/2024 1.03 0.73 - 1.22 mg/dL Final Hemoglobin A1C (POCT) (%) Date Value 07/18/2024 7.2 ) No components found for: URINEALBUMIN Cholesterol, Total (mg/dL) Date Value 02/07/2024 178 11/11/2020 141 HDL Cholesterol (mg/dL) Date Value 02/07/2024 38 11/11/2020 39 LDL Cholesterol (mg/dL) Date Value 02/07/2024 123 11/11/2020 89 Triglyceride (mg/dL) Date Value 02/07/2024 86 11/11/2020 63 IMPRESSION: Mr. Lance is a 69 year old male here for evaluation of DM Type 1 complicated by hypoglycemia,obesity, hypertension RECOMMENDATIONS: (E10.649) Type 1 diabetes mellitus with hypoglycemia and without coma (HCC) (primary encounter diagnosis) Comment: Glycemic control is overall at goal Plan: HEMOGLOBIN A1C (POC) Continue CGM Has baqsimi on hand for emergencies. Continue current pump settings Labs this week or next Follow up in 3 months (I10) Primary hypertension Comment/Plan: Continue ARB and amlodipine (E66.811) Obesity, Class I, BMI 30-34.9 Comment: Body mass index is 31.57 kg/m . Plan: Encouraged increase dietary and exercise efforts as able (Z96.41) Insulin pump status Comment/Plan: Continue Omnipod 5 and Dexcom G6 CGM He is waiting for G7 to be iphone compatible before upgrading (Z12.5) Encounter for screening for malignant neoplasm of prostate Comment/Plan: PSA/PROSTATE SPECIFIC ANTIGEN SCREENING Ordered as requested per patient Medical Decision Making: Level: 4 - Moderate Tyrone Gay, MSN, TERRITORY MANAGER [employer] SALES, WATCH SUPERVISOR-C, [facility] Endocrinology [facility] Office [facility]/[address], [address] [place], [place] [address] Fax: documented in this encounter [facility] 10-19-2024 Note HNO ID: [id number] Author: TYRONE GAY APRN.LEI SELLER Service: ? Author Type: Nurse Practitioner Type: Progress Notes Filed: 10/19/2024 12:48 Note Text: Reason for Consultation: DM Type 1 Referring Physician: SELF HISTORY OF PRESENT ILLNESS Mr. Lance is a 69 year old male presenting here today for a follow up of DM Type 1. As I recall, he was initially diagnosed with diabetes August 2016. LV 07/18/24 A1C today is 6.9 History of diabetes, obesity, hypertension Currently on a cleanse which consists of 21 pills per day for 7 days, no meat, dairy. Lost 10 lb and using less insulin. Going on bike trip to [facility]. +HOSEA antibody in 2018 Started Omnipod 5 insulin pump 11/26/22 Current diabetes regimen is as follows: Glucagon: baqsimi Basal insulin for back up: Toujeo Humalog via Omnipod 5 pump Basal rate: 00:00= 0.3 Bolus: Insulin:carb ratio 00:00= 5 1000=8 4 pm=6 Sensitivity 00:00= 35 Blood glucose target 00:00= 120 Insulin duration= 4 hr Automated mode % 100 Basal/day= 21.1 units or 71% Bolus/day= 8.6 units or 29% 0% overrides Previous diabetes medication: jardiance Glimepiride he is checking his blood glucose with Dexcom G6 CGM he does bring a log book today for review. LDE Blood Sugar Frequency: Dexcom download (10/06/24 to 10/19/24) Target range 72% High 17% Very high 5% Low 5% Very low 1% BG average 145 GMI 6.8% BG ranges lo to 359 BG is stable at goal overnight with occasional low. BG rises gradually between 8 AM and 2 pm then drops lower to 140's. Hypoglycemia frequency: occasionally Hypoglycemia awareness: No; not always sensing Regarding symptoms of hypoglycemia, he is not experiencing any symptoms such as polyuria, polydipsia, nocturia or rapid weight loss or blurry vision, Overall, the patient has no acute complaints at this time. HTN: Switched from lisinopril to valsartan in July due to uncontrolled BP and cough with ELDER. PAST MEDICAL HISTORY Diagnosis Date Diabetes (HCC) Essential hypertension PAST SURGICAL HISTORY Procedure Laterality Date COLONOSCOPY FLX DX W/COLLJ SPEC WHEN PFRMD 04-03-14 LAPS SURG CHOLECYSTECTOMY W/CHOLANGIOGRAPHY 04-17-14 TONSILLECTOMY AND ADENOIDECTOMY FAMILY HISTORY Problem Relation Age of Onset Hypertension Mother Hypertension Father other (traumatic amputation) Father Cancer Paternal Grandmother Cancer Paternal Grandfather Diabetes Maternal Uncle Diabetes Maternal Aunt Social History Tobacco Use Smoking status: Never Smokeless tobacco: Never Substance Use Topics Alcohol use: No Drug use: No Allergies As of Date: 10/19/2024 Allergen Noted Reaction CEPHALEXIN 03/27/2014 Rash LISINOPRIL 07/27/2023 Cough PENICILLINS 03/27/2014 Rash Fully Assessed 10/19/2024 Current Outpatient Medications Medication Sig Dispense Refill insulin pump cart,auto,BT,G6/7 (OMNIPOD 5 G6-G7 PODS, GEN 5,) crtg Use one pod every 72 hr 10 Each 11 valsartan (DIOVAN) 320 mg tablet Take 1 tablet by mouth once daily. 90 tablet 3 amLODIPine (NORVASC) 5 mg tablet Take 1 tablet by mouth once daily. 90 tablet 3 insulin lispro (HUMALOG U-100 INSULIN) 100 unit/mL injection Infuse up to 100 units daily via insulin pump 30 mL 11 Blood-Glucose Sensor (DEXCOM G6 SENSOR) marquis Use one sensor every 10 days, IDDM, E 10.9 3 Each 11 Blood-Glucose Transmitter (DEXCOM G6 TRANSMITTER) marquis Use one transmitter every 3 months, IDDM, E 10.9 1 Each 3 glucagon (BAQSIMI) 3 mg/actuation nasal spray Use 1 Hext in the nose as needed. May repeat after 15 minutes using a new device if there is no response. 2 Each 2 insulin needles, DISPOSABLE, (DROPLET PEN NEEDLE) 31 gauge x 5/16" USE 4 PEN NEEDLES DAILY IF INSULIN PUMP FAILS 400 Each 3 insulin lispro (HUMALOG KWIKPEN INSULIN) 100 unit/mL inject subcutaneously PER RATIO: BREAKFAST 1:6, LUNCH 1:10, DINNER1:12 PLUS SLIDING SCALE *MAX DAILY DOSE 60 UNITS*; if insulin pump fails 60 mL 3 insulin glargine U-300 conc (TOUJEO SOLOSTAR U-300 INSULIN) 300 unit/mL (1.5 mL) Inject 10 Units subcutaneously every morning. If insulin pump fails 3 Each 3 OMNIPOD 5 G6 INTRO KIT, GEN 5, crtg Inject 1 Each subcutaneously as directed. 1 Each 0 Blood-Glucose Meter,Continuous (DEXCOM G6 CEMENT MASON HELPER) [facility] Use continuously to monitor glucose, IDDM, E 10.9 1 Each 0 No current facility-administered medications for this visit. REVIEW OF SYSTEMS Answers submitted by the patient for this visit: Core Review of Systems (Submitted on 10/19/2024) Nasal Congestion: No Hearing Loss: No Vision Disturbance: No A cough: No Chest pain: No Irregular heartbeat: No Leg Swelling: No Nausea: No Diarrhea: No Black tarry stools: No Difficulty Urinating?: No Joint pain or stiffness: No Muscle aches: No Leg or Foot Discomfort at Night?: No A rash: No Dizziness: No Headaches: No Memory Loss: No Seizures: No PHYSICAL EXAMINATION BP 143/72 Pulse 64 Re (more content not included)... [facility] 08-14-2024 Telephone encounter Note Noted. Thank you [facility] 08-14-2024 Miscellaneous Notes Noted. Thank you Patient called with questions about his Omnipod 5 system. He has transitioned from using the Omnipod Controller and now using Omnipod martha on iPhone. He had a couple times when he felt low and checked sugars and they were lower, Dexcom at those times was reading about 20 pts higher per report (reported a finger stick of 53 but report shows 70s at that time). Encouraged him to recalibrate sensor if needed and reach out to Dexcom if having issues with sensor and consider changing sensor if it continues to not match despite calibraiton. He had switched two days ago from using the Omnipod supplied PDM and started using his iPhone as the manager material. Discussed that when he changed platform the system will have to relearn and readapt the algorithm. The adaptively does not carry over between platforms so it will again take about 5 pods for it to optimize control. No other questions at this time. documented in this encounter [facility] 08-10-2024 Telephone encounter Note Patient called with questions about his Omnipod 5 system. He has transitioned from using the Omnipod Controller and now using Omnipod martha on iPhone. He had a couple times when he felt low and checked sugars and they were lower, Dexcom at those times was reading about 20 pts higher per report (reported a finger stick of 53 but report shows 70s at that time). Encouraged him to recalibrate sensor if needed and reach out to Dexcom if having issues with sensor and consider changing sensor if it continues to not match despite calibraiton. He had switched two days ago from using the Omnipod supplied PDM and started using his iPhone as the manager material. Discussed that when he changed platform the system will have to relearn and readapt the algorithm. The adaptively does not carry over between platforms so it will again take about 5 pods for it to optimize control. No other questions at this time. [facility] Work Phone: 07-18-2024 Instructions Tyrone Gay APRN.LEI SELLER - 07/18/2024 11:40 AM EST Basal rate: 00:00= 0.3 Bolus: Insulin:carb ratio 00:00= 5 1000=8 4 pm=6 Sensitivity 00:00= 35 Blood glucose target 00:00= 120 Insulin duration= 4 hr Tyrone Gay, MSN, TERRITORY MANAGER [employer] SALES, WATCH SUPERVISOR-C, [facility] Endocrinology [facility] Office [facility]/[address], [address] [place], [place] [address] Fax: documented in this encounter [facility] 07-18-2024 History of Presen t illness Narrative Reason for Consultation: DM Type 1 Referring Physician: SELF HISTORY OF PRESENT ILLNESS Mr. Lance is a 69 year old male presenting here today for a follow up of DM Type 1. As I recall, he was initially diagnosed with diabetes August 2016. 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 +HOSEA antibody in 2018 Started Omnipod 5 insulin pump 11/26/22 Current diabetes regimen is as follows: Glucagon: baqsimi Basal insulin for back up: Toujeo Humalog via Omnipod 5 pump Basal rate: 00:00= 0.3 Bolus: Insulin:carb ratio 00:00= 5 1000=10 4 pm=8 Sensitivity 00:00= 35 Blood glucose target 00:00= 120 Insulin duration= 4 hr Automated mode 93% Basal/day= 29.6 units or 53% Bolus/day= 26.4 units or 47% 0 overrides Previous diabetes medication: jardiance Glimepiride he is checking his blood glucose with Dexcom G6 CGM he does bring a log book today for review. LDE Blood Sugar Frequency: Dexcom download (07/04/24 to 07/17/24) Target range 59 % High 23% Very high 16% Low 1% Very low 1% BG average 177 GMI 7.5% BG ranges lo to hi BG is stable at goal overnight from MN to 11 AM. Around 11 AM his BG rises and is highest from noon to 3 pm. BG spikes again about 6-7 pm. Hypoglycemia frequency: occasionally Hypoglycemia awareness: No; not always sensing Regarding symptoms of hypoglycemia, he is not experiencing any symptoms such as polyuria, polydipsia, nocturia or rapid weight loss or blurry vision, Overall, the patient has no acute complaints at this time. HTN: Switched from lisinopril to valsartan in July due to uncontrolled BP and cough with ELDER. PAST MEDICAL HISTORY Diagnosis Date Diabetes (HCC) Essential hypertension PAST SURGICAL HISTORY Procedure Laterality Date COLONOSCOPY FLX DX W/COLLJ SPEC WHEN PFRMD 04-03-14 LAPS SURG CHOLECYSTECTOMY W/CHOLANGIOGRAPHY 04-17-14 TONSILLECTOMY & ADENOIDECTOMY <AGE 13 FAMILY HISTORY Problem Relation Age of Onset Hypertension Mother Hypertension Father other (traumatic amputation) Father Cancer Paternal Grandmother Cancer Paternal Grandfather Diabetes Maternal Uncle Diabetes Maternal Aunt Social History Tobacco Use Smoking status: Never Smokeless tobacco: Never Substance Use Topics Alcohol use: No Drug use: No Allergies As of Date: 07/18/2024 Allergen Noted Reaction CEPHALEXIN 03/27/2014 Rash LISINOPRIL 07/27/2023 Cough PENICILLINS 03/27/2014 Rash Fully Assessed 07/18/2024 Current Outpatient Medications Medication Sig Dispense Refill valsartan (DIOVAN) 320 mg tablet Take 1 tablet by mouth once daily. 90 tablet 3 amLODIPine (NORVASC) 5 mg tablet Take 1 tablet by mouth once daily. 90 tablet 3 insulin lispro (HUMALOG U-100 INSULIN) 100 unit/mL injection Infuse up to 100 units daily via insulin pump 30 mL 11 Blood-Glucose Sensor (DEXCOM G6 SENSOR) marquis Use one sensor every 10 days, IDDM, E 10.9 3 Each 11 glucagon (BAQSIMI) 3 mg/actuation nasal spray Use 1 Hext in the nose as needed. May repeat after 15 minutes using a new device if there is no response. 2 Each 2 insulin needles, DISPOSABLE, (DROPLET PEN NEEDLE) 31 gauge x 5/16" USE 4 PEN NEEDLES DAILY IF INSULIN PUMP FAILS 400 Each 3 insulin lispro (HUMALOG KWIKPEN INSULIN) 100 unit/mL inject subcutaneously PER RATIO: BREAKFAST 1:6, LUNCH 1:10, DINNER1:12 PLUS SLIDING SCALE *MAX DAILY DOSE 60 UNITS*; if insulin pump fails 60 mL 3 insulin glargine U-300 conc (TOUJEO SOLOSTAR U-300 INSULIN) 300 unit/mL (1.5 mL) Inject 10 Units subcutaneously every morning. If insulin pump fails 3 Each 3 OMNIPOD 5 G6 INTRO KIT, GEN 5, crtg Inject 1 Each subcutaneously as directed. 1 Each 0 Blood-Glucose Meter,Continuous (DEXCOM G6 CEMENT MASON HELPER) misc Use continuously to monitor glucose, IDDM, E 10.9 1 Each 0 insulin pump cart,auto,BT,G6/7 (OMNIPOD 5 G6-G7 PODS, GEN 5,) crtg Use one pod every 72 hr 10 Each 11 Blood-Glucose Transmitter (DEXCOM G6 TRANSMITTER) marquis Use one transmitter every 3 months, IDDM, E 10.9 1 Each 3 No current facility-administered medications for this visit. REVIEW OF SYSTEMS Answers submitted by the patient for this visit: Core Review of Systems (Submitted on 07/14/2024) Fever : No Night sweats: No Recent unintentional weight change: No Nasal Congestion: No Hearing Loss: No Vision Disturbance: No A cough: No Difficulty Breathing?: No Chest pain: No Irregular heartbeat: No Leg Swelling: Yes Nausea: No Diarrhea: No Black tarry stools: No Difficulty Urinating?: No Awaken at Night More Than Once to Urinate?: No Joint pain or stiffness: No Muscle aches: No Leg or Foot Discomfort at Night?: No A rash: No Dizziness: No Headaches: No Memory Loss: No Seizures: No PHYSICAL EXAMINATION BP 122/82 Pulse 63 Resp 16 Ht 182.9 cm (6' 0.01") Wt 106.9 kg (235 lb 10.8 oz) SpO2 97% BMI 31.96 kg/m2 Physical Exam Constitutional: Appearance: Normal appearance. He is obese. Cardiovascular: Rate and Rhythm: Normal rate and regular rhythm. Pulmonary: Effort: Pulmonary effort is normal. Breath sounds: Normal breath sounds. Skin: General: Skin is warm and dry. Neurological: Mental Status: He is alert and oriented to person, place, and time. Psychiatric: Mood and Affect: Mood normal. Behavior: Behavior normal. DATA Creatinine Date Value Ref Range Status 02/07/2024 1.03 0.73 - 1.22 mg/dL Final Hemoglobin A1C (POCT) (%) Date Value 07/18/2024 7.2 ) No components found for: URINEALBUMIN Cholesterol, Total (mg/dL) Date Value 02/07/2024 178 11/11/2020 141 HDL Cholesterol (mg/dL) Date Value 02/07/2024 38 11/11/2020 39 LDL Cholesterol (mg/dL) Date Value 02/07/2024 123 11/11/2020 89 Triglyceride (mg/dL) Date Value 02/07/2024 86 11/11/2020 63 IMPRESSION: Mr. Lance is a 68 year old male here for evaluation of DM Type 1 complicated by hypoglycemia,obesity, hypertension RECOMMENDATIONS: (E10.649) Type 1 diabetes mellitus with hypoglycemia and without coma (HCC) (primary encounter diagnosis) Comment: Glycemic control is close to goal. Pump settings adjusted Plan: HEMOGLOBIN A1C (POC), insulin pump cart,auto,BT,G6/7 (OMNIPOD 5 G6-G7 PODS, GEN 5,) crtg, COMPREHENSIVE METABOLIC PANEL, LIPID PANEL BASIC, ALBUMIN/CREATININE RATIO, URINE, HEMOGLOBIN A1C Continue CGM Has baqsimi on hand for emergencies. Basal rate: 00:00= 0.3 Bolus: Insulin:carb ratio 00:00= 5 1000=8 4 pm=6 Sensitivity 00:00= 35 Blood glucose target 00:00= 120 Insulin duration= 4 hr Follow up in 3 months (I10) Primary hypertension Comment/Plan: BP at goal with repeat. Continue ARB and amlodipine (E66.811) Obesity, Class I, BMI 30-34.9 Comment: Body mass index is 31.96 kg/m . Plan: Encouraged increase dietary and exercise efforts as able (Z96.41) Insulin pump status Comment/Plan: Continue Omnipod 5 and Dexcom G6 CGM He is waiting for G7 to be iphone compatible before upgrading Medical Decision Making: Level: 4 - Moderate Tyrone Gay, MSN, TERRITORY MANAGER [employer] SALES, WATCH SUPERVISOR-C, [facility] Endocrinology [facility]/[address] [place] [address] Fax: documented in this encounter [facility] 07-18-2024 Note HNO ID: [id number] Author: TYRONE GAY APRN.LEI SELLER Service: ? Author Type: Nurse Practitioner Type: Progress Notes Filed: 07/18/2024 12:20 Note Text: Reason for Consultation: DM Type 1 Referring Physician: SELF HISTORY OF PRESENT ILLNESS Mr. Lance is a 69 year old male presenting here today for a follow up of DM Type 1. As I recall, he was initially diagnosed with diabetes August 2016. 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 +HOSEA antibody in 2018 Started Omnipod 5 insulin pump 11/26/22 Current diabetes regimen is as follows: Glucagon: baqsimi Basal insulin for back up: Toujeo Humalog via Omnipod 5 pump Basal rate: 00:00= 0.3 Bolus: Insulin:carb ratio 00:00= 5 1000=10 4 pm=8 Sensitivity 00:00= 35 Blood glucose target 00:00= 120 Insulin duration= 4 hr Automated mode 93% Basal/day= 29.6 units or 53% Bolus/day= 26.4 units or 47% 0 overrides Previous diabetes medication: jardiance Glimepiride he is checking his blood glucose with Dexcom G6 CGM he does bring a log book today for review. LDE Blood Sugar Frequency: Dexcom download (07/04/24 to 07/17/24) Target range 59 % High 23% Very high 16% Low 1% Very low 1% BG average 177 GMI 7.5% BG ranges lo to hi BG is stable at goal overnight from MN to 11 AM. Around 11 AM his BG rises and is highest from noon to 3 pm. BG spikes again about 6-7 pm. Hypoglycemia frequency: occasionally Hypoglycemia awareness: No; not always sensing Regarding symptoms of hypoglycemia, he is not experiencing any symptoms such as polyuria, polydipsia, nocturia or rapid weight loss or blurry vision, Overall, the patient has no acute complaints at this time. HTN: Switched from lisinopril to valsartan in July due to uncontrolled BP and cough with ELDER. PAST MEDICAL HISTORY Diagnosis Date Diabetes (HCC) Essential hypertension PAST SURGICAL HISTORY Procedure Laterality Date COLONOSCOPY FLX DX W/COLLJ SPEC WHEN PFRMD 04-03-14 LAPS SURG CHOLECYSTECTOMY W/CHOLANGIOGRAPHY 04-17-14 TONSILLECTOMY AND ADENOIDECTOMY FAMILY HISTORY Problem Relation Age of Onset Hypertension Mother Hypertension Father other (traumatic amputation) Father Cancer Paternal Grandmother Cancer Paternal Grandfather Diabetes Maternal Uncle Diabetes Maternal Aunt Social History Tobacco Use Smoking status: Never Smokeless tobacco: Never Substance Use Topics Alcohol use: No Drug use: No Allergies As of Date: 07/18/2024 Allergen Noted Reaction CEPHALEXIN 03/27/2014 Rash LISINOPRIL 07/27/2023 Cough PENICILLINS 03/27/2014 Rash Fully Assessed 07/18/2024 Current Outpatient Medications Medication Sig Dispense Refill valsartan (DIOVAN) 320 mg tablet Take 1 tablet by mouth once daily. 90 tablet 3 amLODIPine (NORVASC) 5 mg tablet Take 1 tablet by mouth once daily. 90 tablet 3 insulin lispro (HUMALOG U-100 INSULIN) 100 unit/mL injection Infuse up to 100 units daily via insulin pump 30 mL 11 Blood-Glucose Sensor (DEXCOM G6 SENSOR) marquis Use one sensor every 10 days, IDDM, E 10.9 3 Each 11 glucagon (BAQSIMI) 3 mg/actuation nasal spray Use 1 Hext in the nose as needed. May repeat after 15 minutes using a new device if there is no response. 2 Each 2 insulin needles, DISPOSABLE, (DROPLET PEN NEEDLE) 31 gauge x 5/16" USE 4 PEN NEEDLES DAILY IF INSULIN PUMP FAILS 400 Each 3 insulin lispro (HUMALOG KWIKPEN INSULIN) 100 unit/mL inject subcutaneously PER RATIO: BREAKFAST 1:6, LUNCH 1:10, DINNER1:12 PLUS SLIDING SCALE *MAX DAILY DOSE 60 UNITS*; if insulin pump fails 60 mL 3 insulin glargine U-300 conc (TOUJEO SOLOSTAR U-300 INSULIN) 300 unit/mL (1.5 mL) Inject 10 Units subcutaneously every morning. If insulin pump fails 3 Each 3 OMNIPOD 5 G6 INTRO KIT, GEN 5, crtg Inject 1 Each subcutaneously as directed. 1 Each 0 Blood-Glucose Meter,Continuous (DEXCOM G6 CEMENT MASON HELPER) misc Use continuously to monitor glucose, IDDM, E 10.9 1 Each 0 insulin pump cart,auto,BT,G6/7 (OMNIPOD 5 G6-G7 PODS, GEN 5,) crtg Use one pod every 72 hr 10 Each 11 Blood-Glucose Transmitter (DEXCOM G6 TRANSMITTER) marquis Use one transmitter every 3 months, IDDM, E 10.9 1 Each 3 No current facility-administered medications for this visit. REVIEW OF SYSTEMS Answers submitted by the patient for this visit: Core Review of Systems (Submitted on 07/14/2024) Fever : No Night sweats: No Recent unintentional weight change: No Nasal Congestion: No Hearing Loss: No Vision Disturbance: No A cough: No Difficulty Breathing?: No Chest pain: No Irregular heartbeat: No Leg Swelling: Yes Nausea: No Diarrhea: No Black tarry stools: No Difficulty Urinating?: No Awaken at Night More Than Once to Urinate?: No Joint pain or stiffness: No Muscle aches: No Leg or Foot Discomfort at Night?: No A rash: No Dizziness: No Headaches: No Memory L (more content not included)... [facility] 07-18-2024 Note HNO ID: [id number] Author: JESSICA SOLANO MA Service: ? Author Type: Olive Pitter Type: Procedures Filed: 07/18/2024 12:20 Note Text: [facility] 07-18-2024 Procedure note Procedure(s): EXTERNAL CEMENT MASON HELPER, CGM SYS Images from the original note were not included. [facility] 07-18-2024 Procedure note Procedure(s): EXTERNAL CEMENT MASON HELPER, CGM SYS Images from the original note were not included. documented in this encounter [facility] 04-17-2024 History of Presen t illness Narrative Reason for Consultation: DM Type 1 Referring Physician: SELF HISTORY OF PRESENT ILLNESS Mr. Lance is a 68 year old male presenting here today for a follow up of DM Type 1. As I recall, he was initially diagnosed with diabetes August 2016. 01/12/24 A1C today is 7.1 History of diabetes, obesity, hypertension Overall doing well today. +HOSEA antibody in 2018 Started Omnipod 5 insulin pump 11/26/22 Current diabetes regimen is as follows: Glucagon: baqsimi Basal insulin for back up: Toujeo Humalog via Omnipod 5 pump Basal rate: 00:00= 0.3 Bolus: Insulin:carb ratio 00:00= 5 1000=10 4 pm=8 Sensitivity 00:00= 35 Blood glucose target 00:00= 120 Insulin duration= 4 hr Automated mode 97% Basal/day= 32.2 units or 58% Bolus/day= 23.1 units or 42% Previous diabetes medication: jardiance Glimepiride he is checking his blood glucose with Dexcom G6 CGM he does bring a log book today for review. LDE Blood Sugar Frequency: Dexcom download (04/03/24 to 04/16/24) Target range 61 % High 22% Very high 16% Low 0% Very low 1% BG average 174 GMI 7.5% BG ranges lo to hi BG is stable at goal overnight--rare low reading BG rises about 11 AM and stays high on average the rest of the day and evening *bolusing after eating Hypoglycemia frequency: occasionally Hypoglycemia awareness: No; not always sensing Regarding symptoms of hypoglycemia, he is not experiencing any symptoms such as polyuria, polydipsia, nocturia or rapid weight loss or blurry vision, Overall, the patient has no acute complaints at this time. HTN: Switched from lisinopril to valsartan in July due to uncontrolled BP and cough with ELDER. PAST MEDICAL HISTORY Diagnosis Date Diabetes (HCC) Essential hypertension PAST SURGICAL HISTORY Procedure Laterality Date COLONOSCOPY FLX DX W/COLLJ SPEC WHEN PFRMD 04-03-14 LAPS SURG CHOLECYSTECTOMY W/CHOLANGIOGRAPHY 04-17-14 TONSILLECTOMY & ADENOIDECTOMY <AGE 13 FAMILY HISTORY Problem Relation Age of Onset Hypertension Mother Hypertension Father other (traumatic amputation) Father Cancer Paternal Grandmother Cancer Paternal Grandfather Diabetes Maternal Uncle Diabetes Maternal Aunt Social History Tobacco Use Smoking status: Never Smokeless tobacco: Never Substance Use Topics Alcohol use: No Drug use: No Allergies As of Date: 04/17/2024 Allergen Noted Reaction CEPHALEXIN 03/27/2014 Rash LISINOPRIL 07/27/2023 Cough PENICILLINS 03/27/2014 Rash Fully Assessed 04/17/2024 Current Outpatient Medications Medication Sig Dispense Refill OMNIPOD 5 G6 PODS, GEN 5, crtg Inject 1 Each subcutaneously every 72 hours. (use one pod every 72 hours) 10 Each 11 amLODIPine (NORVASC) 5 mg tablet take 1 tablet by mouth once daily 90 tablet 3 insulin lispro (HUMALOG U-100 INSULIN) 100 unit/mL injection Infuse up to 100 units daily via insulin pump 30 mL 11 Blood-Glucose Sensor (DEXCOM G6 SENSOR) marquis Use one sensor every 10 days, IDDM, E 10.9 3 Each 11 Blood-Glucose Transmitter (DEXCOM G6 TRANSMITTER) marquis Use one transmitter every 3 months, IDDM, E 10.9 1 Each 3 glucagon (BAQSIMI) 3 mg/actuation nasal spray Use 1 Hext in the nose as needed. May repeat after 15 minutes using a new device if there is no response. 2 Each 2 valsartan (DIOVAN) 320 mg tablet Take 1 tablet by mouth once daily. 90 tablet 3 insulin needles, DISPOSABLE, (DROPLET PEN NEEDLE) 31 gauge x 5/16" USE 4 PEN NEEDLES DAILY IF INSULIN PUMP FAILS 400 Each 3 insulin lispro (HUMALOG KWIKPEN INSULIN) 100 unit/mL inject subcutaneously PER RATIO: BREAKFAST 1:6, LUNCH 1:10, DINNER1:12 PLUS SLIDING SCALE *MAX DAILY DOSE 60 UNITS*; if insulin pump fails 60 mL 3 insulin glargine U-300 conc (TOUJEO SOLOSTAR U-300 INSULIN) 300 unit/mL (1.5 mL) Inject 10 Units subcutaneously every morning. If insulin pump fails 3 Each 3 OMNIPOD 5 G6 INTRO KIT, GEN 5, crtg Inject 1 Each subcutaneously as directed. 1 Each 0 Blood-Glucose Meter,Continuous (DEXCOM G6 CEMENT MASON HELPER) [facility] [place] Use continuously to monitor glucose, IDDM, E 10.9 1 Each 0 No current facility-administered medications for this visit. REVIEW OF SYSTEMS Answers submitted by the patient for this visit: Core Review of Systems (Submitted on 04/16/2024) Fever : No Night sweats: No Recent unintentional weight change: No Nasal Congestion: No Hearing Loss: No Vision Disturbance: No A cough: No Difficulty Breathing?: No Chest pain: No Irregular heartbeat: No Leg Swelling: Yes Nausea: No Diarrhea: No Black tarry stools: No Difficulty Urinating?: No Awaken at Night More Than Once to Urinate?: No Joint pain or stiffness: No Muscle aches: No Leg or Foot Discomfort at Night?: No A rash: No Dizziness: No Headaches: No Memory Loss: No Seizures: No PHYSICAL EXAMINATION BP 138/82 Pulse 66 Wt 109.6 kg (241 lb 10 oz) SpO2 96% BMI 32.76 kg/m2 Physical Exam Constitutional: Appearance: Normal appearance. He is obese. Cardiovascular: Rate and Rhythm: Normal rate and regular rhythm. Pulmonary: Effort: Pulmonary effort is normal. Breath sounds: Normal breath sounds. Skin: General: Skin is warm and dry. Neurological: Mental Status: He is alert and oriented to person, place, and time. Psychiatric: Mood and Affect: Mood normal. Behavior: Behavior normal. DATA Creatinine Date Value Ref Range Status 02/07/2024 1.03 0.73 - 1.22 mg/dL Final Hemoglobin A1C (POCT) (%) Date Value 04/17/2024 7.1 ) No components found for: URINEALBUMIN Cholesterol, Total (mg/dL) Date Value 02/07/2024 178 11/11/2020 141 HDL Cholesterol (mg/dL) Date Value 02/07/2024 38 11/11/2020 39 LDL Cholesterol (mg/dL) Date Value 02/07/2024 123 11/11/2020 89 Triglyceride (mg/dL) Date Value 02/07/2024 86 11/11/2020 63 IMPRESSION: Mr. Lance is a 68 year old male here for evaluation of DM Type 1 complicated by hypoglycemia,obesity, hypertension RECOMMENDATIONS: (E10.649) Type 1 diabetes mellitus with hypoglycemia and without coma (HCC) (primary encounter diagnosis) Comment: Glycemic control is trending higher. Reviewed the importance of bolusing within 15 minutes before the meal. Plan: insulin lispro (HUMALOG U-100 INSULIN) 100 unit/mL injection Continue CGM Has nicolei on hand for emergencies. Continue current pump settings. Bolus before eating Follow up in 3 months (I10) Primary hypertension Comment: Lower with repeat Plan: valsartan (DIOVAN) 320 mg tablet, amLODIPine (NORVASC) 5 mg tablet Continue regimen (E66.9) Obesity, Class I, BMI 30-34.9 Comment: Body mass index is 32.76 kg/m . Plan: Encouraged increase dietary and exercise efforts as able (96.41) Insulin pump status Comment/Plan: continue Omnipod 5 and Dexcom G6 CGM Medical Decision Making: Level: 4 - Moderate *Declined flu shot today Tyrone Gay, MSN, TERRITORY MANAGER [employer], WATCH SUPERVISOR-C, [facility] Endocrinology [facility] Building/[address], [address] [place] [address] Fax: documented in this encounter [facility] 04-17-2024 Note HNO ID: [id number] Author: JESSICA SOLANO MA Service: ? Author Type: Olive Pitter Type: Procedures Filed: 04/17/2024 16:22 Note Text: [facility] 04-17-2024 Note HNO ID: [id number] Author: TYRONE GAY APRN.CNP Service: ? Author Type: Nurse Practitioner Type: Progress Notes Filed: 04/17/2024 16:22 Note Text: Reason for Consultation: DM Type 1 Referring Physician: SELF HISTORY OF PRESENT ILLNESS Mr. Lance is a 68 year old male presenting here today for a follow up of DM Type 1. As I recall, he was initially diagnosed with diabetes August 2016. LV 01/12/24 A1C today is 7.1 History of diabetes, obesity, hypertension Overall doing well today. +HOSEA antibody in 2018 Started Omnipod 5 insulin pump 11/26/22 Current diabetes regimen is as follows: Glucagon: baqsimi Basal insulin for back up: Toujeo Humalog via Omnipod 5 pump Basal rate: 00:00= 0.3 Bolus: Insulin:carb ratio 00:00= 5 1000=10 4 pm=8 Sensitivity 00:00= 35 Blood glucose target 00:00= 120 Insulin duration= 4 hr Automated mode 97% Basal/day= 32.2 units or 58% Bolus/day= 23.1 units or 42% Previous diabetes medication: jardiance Glimepiride he is checking his blood glucose with Dexcom G6 CGM he does bring a log book today for review. LDE Blood Sugar Frequency: Dexcom download (04/03/24 to 04/16/24) Target range 61 % High 22% Very high 16% Low 0% Very low 1% BG average 174 GMI 7.5% BG ranges lo to hi BG is stable at goal overnight--rare low reading BG rises about 11 AM and stays high on average the rest of the day and evening *bolusing after eating Hypoglycemia frequency: occasionally Hypoglycemia awareness: No; not always sensing Regarding symptoms of hypoglycemia, he is not experiencing any symptoms such as polyuria, polydipsia, nocturia or rapid weight loss or blurry vision, Overall, the patient has no acute complaints at this time. HTN: Switched from lisinopril to valsartan in July due to uncontrolled BP and cough with ELDER. PAST MEDICAL HISTORY Diagnosis Date Diabetes (HCC) Essential hypertension PAST SURGICAL HISTORY Procedure Laterality Date COLONOSCOPY FLX DX W/COLLJ SPEC WHEN PFRMD 04-03-14 LAPS SURG CHOLECYSTECTOMY W/CHOLANGIOGRAPHY 04-17-14 TONSILLECTOMY AND ADENOIDECTOMY FAMILY HISTORY Problem Relation Age of Onset Hypertension Mother Hypertension Father other (traumatic amputation) Father Cancer Paternal Grandmother Cancer Paternal Grandfather Diabetes Maternal Uncle Diabetes Maternal Aunt Social History Tobacco Use Smoking status: Never Smokeless tobacco: Never Substance Use Topics Alcohol use: No Drug use: No Allergies As of Date: 04/17/2024 Allergen Noted Reaction CEPHALEXIN 03/27/2014 Rash LISINOPRIL 07/27/2023 Cough PENICILLINS 03/27/2014 Rash Fully Assessed 04/17/2024 Current Outpatient Medications Medication Sig Dispense Refill OMNIPOD 5 G6 PODS, GEN 5, crtg Inject 1 Each subcutaneously every 72 hours. (use one pod every 72 hours) 10 Each 11 amLODIPine (NORVASC) 5 mg tablet take 1 tablet by mouth once daily 90 tablet 3 insulin lispro (HUMALOG U-100 INSULIN) 100 unit/mL injection Infuse up to 100 units daily via insulin pump 30 mL 11 Blood-Glucose Sensor (DEXCOM G6 SENSOR) marquis Use one sensor every 10 days, IDDM, E 10.9 3 Each 11 Blood-Glucose Transmitter (DEXCOM G6 TRANSMITTER) marquis Use one transmitter every 3 months, IDDM, E 10.9 1 Each 3 glucagon (BAQSIMI) 3 mg/actuation nasal spray Use 1 Hext in the nose as needed. May repeat after 15 minutes using a new device if there is no response. 2 Each 2 valsartan (DIOVAN) 320 mg tablet Take 1 tablet by mouth once daily. 90 tablet 3 insulin needles, DISPOSABLE, (DROPLET PEN NEEDLE) 31 gauge x 5/16" USE 4 PEN NEEDLES DAILY IF INSULIN PUMP FAILS 400 Each 3 insulin lispro (HUMALOG KWIKPEN INSULIN) 100 unit/mL inject subcutaneously PER RATIO: BREAKFAST 1:6, LUNCH 1:10, DINNER1:12 PLUS SLIDING SCALE *MAX DAILY DOSE 60 UNITS*; if insulin pump fails 60 mL 3 insulin glargine U-300 conc (TOUJEO SOLOSTAR U-300 INSULIN) 300 unit/mL (1.5 mL) Inject 10 Units subcutaneously every morning. If insulin pump fails 3 Each 3 OMNIPOD 5 G6 INTRO KIT, GEN 5, crtg Inject 1 Each subcutaneously as directed. 1 Each 0 Blood-Glucose Meter,Continuous (DEXCOM G6 CEMENT MASON HELPER) misc Use continuously to monitor glucose, IDDM, E 10.9 1 Each 0 No current facility-administered medications for this visit. REVIEW OF SYSTEMS Answers submitted by the patient for this visit: Core Review of Systems (Submitted on 04/16/2024) Fever : No Night sweats: No Recent unintentional weight change: No Nasal Congestion: No Hearing Loss: No Vision Disturbance: No A cough: No Difficulty Breathing?: No Chest pain: No Irregular heartbeat: No Leg Swelling: Yes Nausea: No Diarrhea: No Black tarry stools: No Difficulty Urinating?: No Awaken at Night More Than Once to Urinate?: No Joint pain or stiffness: No Muscle aches: No Leg or Foot Discomfort at Night?: No A rash: No Dizziness: No Headaches: No Memory Loss: No Seizures: (more content not included)... [facility] 04-17-2024 Procedure note Procedure(s): EXTERNAL CEMENT MASON HELPER, CGM SYS Images from the original note were not included. [facility] 04-17-2024 Procedure note Procedure(s): EXTERNAL CEMENT MASON HELPER, CGM SYS Images from the original note were not included. documented in this encounter [facility] 02-08-2024 Telephone encounter Note Labs printed and faxed to [phone]. 70 pages. Transmission Ok Closed [facility] 02-08-2024 Miscellaneous Notes Labs printed and faxed to [phone]. 13 pages. Transmission Ok Closed Please send a copy of recent lab results to his PCP, Dr. Chavez. Thank you documented in this encounter [facility] 02-08-2024 Telephone encounter Note Please send a copy of recent lab results to his PCP, Dr. Chavez. Thank you [facility] 01-12-2024 History of Presen t illness Narrative Reason for Consultation: DM Type 1 Referring Physician: SELF HISTORY OF PRESENT ILLNESS Mr. Lance is a 68 year old male presenting here today for a follow up of DM Type 1. As I recall, he was initially diagnosed with diabetes August 2016. LV 09/09/23 A1C today is 6.[address] Chavez at [facility] History of diabetes, obesity, hypertension +HOSEA antibody in 2018 Started Omnipod 5 insulin pump 11/26/22 Had eye exam in May/2022. Current diabetes regimen is as follows: Glucagon: baqsimi Basal insulin for back up: Toujeo Humalog via Omnipod 5 pump Basal rate: 00:00= 0.3 Bolus: Insulin:carb ratio 00:00= 5 1000=10 3 pm=8 Sensitivity 00:00= 35 Blood glucose target 00:00= 120 Insulin duration= 4 hr Automated mode 100% Basal/day= 23.5 units or 53% Bolus/day= 21 units or 47% Previous diabetes medication: jardiance Glimepiride he is checking his blood glucose with Dexcom G6 CGM he does bring a log book today for review. LDE Blood Sugar Frequency: Dexcom download (12/30/23 to 01/12/24) Target range 73 % High 18% Very high 6% Low 3% Very low 0% BG average 150 GMI--- BG ranges lo to hi BG is stable at goal overnight--rare low reading Glucose is steady until about noon when it rises the most up to 210 average. It drops back down to baseline by 6 pm Hypoglycemia frequency: occasionally Hypoglycemia awareness: No; not always sensing Regarding symptoms of hypoglycemia, he is not experiencing any symptoms such as polyuria, polydipsia, nocturia or rapid weight loss or blurry vision, Overall, the patient has no acute complaints at this time. HTN: Switched from lisinopril to valsartan in July due to uncontrolled BP and cough with ELDER. PAST MEDICAL HISTORY Diagnosis Date Diabetes (HCC) Essential hypertension PAST SURGICAL HISTORY Procedure Laterality Date COLONOSCOPY FLX DX W/COLLJ SPEC WHEN PFRMD 04-03-14 LAPS SURG CHOLECYSTECTOMY W/CHOLANGIOGRAPHY 04-17-14 TONSILLECTOMY & ADENOIDECTOMY <AGE 13 FAMILY HISTORY Problem Relation Age of Onset Hypertension Mother Hypertension Father other (traumatic amputation) Father Cancer Paternal Grandmother Cancer Paternal Grandfather Diabetes Maternal Uncle Diabetes Maternal Aunt Social History Tobacco Use Smoking status: Never Smokeless tobacco: Never Substance Use Topics Alcohol use: No Drug use: No Allergies As of Date: 01/12/2024 Allergen Noted Reaction CEPHALEXIN 03/27/2014 Rash LISINOPRIL 07/27/2023 Cough PENICILLINS 03/27/2014 Rash Fully Assessed 01/12/2024 Current Outpatient Medications Medication Sig Dispense Refill OMNIPOD 5 G6 PODS, GEN 5, crtg Inject 1 Each subcutaneously every 72 hours. (use one pod every 72 hours) 10 Each 11 amLODIPine (NORVASC) 5 mg tablet take 1 tablet by mouth once daily 90 tablet 3 insulin lispro (HUMALOG U-100 INSULIN) 100 unit/mL injection Infuse up to 100 units daily via insulin pump 30 mL 11 Blood-Glucose Sensor (DEXCOM G6 SENSOR) marquis Use one sensor every 10 days, IDDM, E 10.9 3 Each 11 Blood-Glucose Transmitter (DEXCOM G6 TRANSMITTER) marquis Use one transmitter every 3 months, IDDM, E 10.9 1 Each 3 glucagon (BAQSIMI) 3 mg/actuation nasal spray Use 1 Hext in the nose as needed. May repeat after 15 minutes using a new device if there is no response. 2 Each 2 valsartan (DIOVAN) 320 mg tablet Take 1 tablet by mouth once daily. 90 tablet 3 insulin needles, DISPOSABLE, (DROPLET PEN NEEDLE) 31 gauge x 5/16" USE 4 PEN NEEDLES DAILY IF INSULIN PUMP FAILS 400 Each 3 insulin lispro (HUMALOG KWIKPEN INSULIN) 100 unit/mL inject subcutaneously PER RATIO: BREAKFAST 1:6, LUNCH 1:10, DINNER1:12 PLUS SLIDING SCALE *MAX DAILY DOSE 60 UNITS*; if insulin pump fails 60 mL 3 insulin glargine U-300 conc (TOUJEO SOLOSTAR U-300 INSULIN) 300 unit/mL (1.5 mL) Inject 10 Units subcutaneously every morning. If insulin pump fails 3 Each 3 OMNIPOD 5 G6 INTRO KIT, GEN 5, crtg Inject 1 Each subcutaneously as directed. 1 Each 0 Blood-Glucose Meter,Continuous (DEXCOM G6 CEMENT MASON HELPER) [facility] Use continuously to monitor glucose, IDDM, E 10.9 1 Each 0 No current facility-administered medications for this visit. REVIEW OF SYSTEMS Answers submitted by the patient for this visit: Core Review of Systems (Submitted on 01/11/2024) Fever : No Night sweats: No Recent unintentional weight change: No Nasal Congestion: No Hearing Loss: No Vision Disturbance: No A cough: No Difficulty Breathing?: No Chest pain: No Irregular heartbeat: No Leg Swelling: Yes Nausea: No Black tarry stools: No Difficulty Urinating?: No Awaken at Night More Than Once to Urinate?: No Joint pain or stiffness: No Muscle aches: No Leg or Foot Discomfort at Night?: No A rash: No Dizziness: No Headaches: No Memory Loss: No Seizures: No PHYSICAL EXAMINATION BP 122/80 Pulse 102 Ht 182.9 cm (6' 0.01") Wt 108 kg (238 lb 1.6 oz) SpO2 98% BMI 32.28 kg/m2 Physical Exam Constitutional: Appearance: Normal appearance. He is obese. Cardiovascular: Rate and Rhythm: Normal rate and regular rhythm. Pulmonary: Effort: Pulmonary effort is normal. Breath sounds: Normal breath sounds. Skin: General: Skin is warm and dry. Neurological: Mental Status: He is alert and oriented to person, place, and time. Psychiatric: Mood and Affect: Mood normal. Behavior: Behavior normal. DATA Creatinine Date Value Ref Range Status 01/21/2023 1.08 0.73 - 1.22 mg/dL Final Hemoglobin A1C (POCT) (%) Date Value 01/12/2024 6.7 ) No components found for: URINEALBUMIN Cholesterol, Total (mg/dL) Date Value 01/21/2023 177 11/11/2020 141 HDL Cholesterol (mg/dL) Date Value 01/21/2023 36 11/11/2020 39 LDL Cholesterol (mg/dL) Date Value 01/21/2023 114 11/11/2020 89 Triglyceride (mg/dL) Date Value 01/21/2023 133 11/11/2020 63 IMPRESSION: Mr. Lance is a 68 year old male here for evaluation of DM Type 1 complicated by hypoglycemia,obesity, hypertension RECOMMENDATIONS: (E10.649) Type 1 diabetes mellitus with hypoglycemia and without coma (HCC) (primary encounter diagnosis) Comment: Glycemic control is overall stable. Plan: HEMOGLOBIN A1C (POC), COMPREHENSIVE METABOLIC PANEL, THYROID STIMULATING HORMONE, LIPID PANEL BASIC, ALBUMIN/CREATININE RATIO, URINE Continue CGM Has baqsimi on hand for emergencies. Continue current pump settings. (I10) Primary hypertension Comment/Plan: BP is stable on current regimen (E66.9) Obesity, Class I, BMI 30-34.9 Comment: Body mass index is 32.28 kg/m . Plan: Encouraged increase dietary and exercise efforts as able (Z96.41) Insulin pump status Comment/Plan: continue Omnipod 5 and Dexcom G6 CGM (Z12.5) Encounter for screening for malignant neoplasm of prostate Comment/Plan: PSA/PROSTATE SPECIFIC ANTIGEN SCREENING States he told PCP we would draw with is other labs. Medical Decision Making: Level: 4 - Moderate Tyrone Gay, MSN, TERRITORY MANAGER [employer] SALES, WATCH SUPERVISOR-C, [facility] Endocrinology [facility]/[address], [address] [place] [address] Fax: documented in this encounter [facility] 01-12-2024 Note HNO ID: [id number] Author: TYRONE GAY APRN.LEI SELLER Service: ? Author Type: Nurse Practitioner Type: Progress Notes Filed: 01/12/2024 16:36 Note Text: Reason for Consultation: DM Type 1 Referring Physician: SELF HISTORY OF PRESENT ILLNESS Mr. Lance is a 68 year old male presenting here today for a follow up of DM Type 1. As I recall, he was initially diagnosed with diabetes August 2016. LV 09/09/23 A1C today is 6.[address] Chavez at [facility] History of diabetes, obesity, hypertension +HOSEA antibody in 2018 Started Omnipod 5 insulin pump 11/26/22 Had eye exam in 2022. Current diabetes regimen is as follows: Glucagon: baqsimi Basal insulin for back up: Toujeo Humalog via Omnipod 5 pump Basal rate: 00:00= 0.3 Bolus: Insulin:carb ratio 00:00= 5 1000=10 3 pm=8 Sensitivity 00:00= 35 Blood glucose target 00:00= 120 Insulin duration= 4 hr Automated mode 100% Basal/day= 23.5 units or 53% Bolus/day= 21 units or 47% Previous diabetes medication: jardiance Glimepiride he is checking his blood glucose with Dexcom G6 CGM he does bring a log book today for review. LDE Blood Sugar Frequency: Dexcom download (12/30/23 to 01/12/24) Target range 73 % High 18% Very high 6% Low 3% Very low 0% BG average 150 GMI--- BG ranges lo to hi BG is stable at goal overnight--rare low reading Glucose is steady until about noon when it rises the most up to 210 average. It drops back down to baseline by 6 pm Hypoglycemia frequency: occasionally Hypoglycemia awareness: No; not always sensing Regarding symptoms of hypoglycemia, he is not experiencing any symptoms such as polyuria, polydipsia, nocturia or rapid weight loss or blurry vision, Overall, the patient has no acute complaints at this time. HTN: Switched from lisinopril to valsartan in July due to uncontrolled BP and cough with ELDER. PAST MEDICAL HISTORY Diagnosis Date Diabetes (HCC) Essential hypertension PAST SURGICAL HISTORY Procedure Laterality Date COLONOSCOPY FLX DX W/COLLJ SPEC WHEN PFRMD 04-03-14 LAPS SURG CHOLECYSTECTOMY W/CHOLANGIOGRAPHY 04-17-14 TONSILLECTOMY AND ADENOIDECTOMY FAMILY HISTORY Problem Relation Age of Onset Hypertension Mother Hypertension Father other (traumatic amputation) Father Cancer Paternal Grandmother Cancer Paternal Grandfather Diabetes Maternal Uncle Diabetes Maternal Aunt Social History Tobacco Use Smoking status: Never Smokeless tobacco: Never Substance Use Topics Alcohol use: No Drug use: No Allergies As of Date: 01/12/2024 Allergen Noted Reaction CEPHALEXIN 03/27/2014 Rash LISINOPRIL 07/27/2023 Cough PENICILLINS 03/27/2014 Rash Fully Assessed 01/12/2024 Current Outpatient Medications Medication Sig Dispense Refill OMNIPOD 5 G6 PODS, GEN 5, crtg Inject 1 Each subcutaneously every 72 hours. (use one pod every 72 hours) 10 Each 11 amLODIPine (NORVASC) 5 mg tablet take 1 tablet by mouth once daily 90 tablet 3 insulin lispro (HUMALOG U-100 INSULIN) 100 unit/mL injection Infuse up to 100 units daily via insulin pump 30 mL 11 Blood-Glucose Sensor (DEXCOM G6 SENSOR) marquis Use one sensor every 10 days, IDDM, E 10.9 3 Each 11 Blood-Glucose Transmitter (DEXCOM G6 TRANSMITTER) marquis Use one transmitter every 3 months, IDDM, E 10.9 1 Each 3 glucagon (BAQSIMI) 3 mg/actuation nasal spray Use 1 Hext in the nose as needed. May repeat after 15 minutes using a new device if there is no response. 2 Each 2 valsartan (DIOVAN) 320 mg tablet Take 1 tablet by mouth once daily. 90 tablet 3 insulin needles, DISPOSABLE, (DROPLET PEN NEEDLE) 31 gauge x 5/16" USE 4 PEN NEEDLES DAILY IF INSULIN PUMP FAILS 400 Each 3 insulin lispro (HUMALOG KWIKPEN INSULIN) 100 unit/mL inject subcutaneously PER RATIO: BREAKFAST 1:6, LUNCH 1:10, DINNER1:12 PLUS SLIDING SCALE *MAX DAILY DOSE 60 UNITS*; if insulin pump fails 60 mL 3 insulin glargine U-300 conc (TOUJEO SOLOSTAR U-300 INSULIN) 300 unit/mL (1.5 mL) Inject 10 Units subcutaneously every morning. If insulin pump fails 3 Each 3 OMNIPOD 5 G6 INTRO KIT, GEN 5, crtg Inject 1 Each subcutaneously as directed. 1 Each 0 Blood-Glucose Meter,Continuous (DEXCOM G6 CEMENT MASON HELPER) misc Use continuously to monitor glucose, IDDM, E 10.9 1 Each 0 No current facility-administered medications for this visit. REVIEW OF SYSTEMS Answers submitted by the patient for this visit: Core Review of Systems (Submitted on 01/11/2024) Fever : No Night sweats: No Recent unintentional weight change: No Nasal Congestion: No Hearing Loss: No Vision Disturbance: No A cough: No Difficulty Breathing?: No Chest pain: No Irregular heartbeat: No Leg Swelling: Yes Nausea: No Black tarry stools: No Difficulty Urinating?: No Awaken at Night More Than Once to Urinate?: No Joint pain or stiffness: No Muscle aches: No Leg or Foot Discomfort at Night?: No A rash: No Dizziness: No (more content not included)... [facility] 12-19-2023 Telephone encounter Note I sent patient MyChart message stating that the appointment that he already has scheduled it the only one during his requested time frame. [facility] 12-19-2023 Miscellaneous Notes I sent patient MyChart message stating that the appointment that he already has scheduled it the only one during his requested time frame. PSS: can you see if you can find any better time for the patient per his mychart he sent? If not just let him know that is all is available with the days he provided. Thanks documented in this encounter [facility] 12-19-2023 Telephone encounter Note PSS: can you see if you can find any better time for the patient per his mychart he sent? If not just let him know that is all is available with the days he provided. Thanks [facility] 12-13-2023 Telephone encounter Note Form faxed to [employer] [employer] at on December 13, 2023; transmission ok. [facility] 12-13-2023 Miscellaneous Notes Form faxed to [facility] [employer] [facility] at on December 13, 2023; transmission ok. Form signed. Thank you Form on docs desk/basket for review from [facility]. Please review and sign. Needs to be faxed to FOR OMNIPOD 5 G6 PODS documented in this encounter [facility] 12-13-2023 Telephone encounter Note Form signed. Thank you [facility] 12-13-2023 Telephone encounter Note Form on docs desk/basket for review from [facility]. Please review and sign. Needs to be faxed to FOR OMNIPOD [address] [facility] 12-01-2023 Telephone encounter Note Pharmacy comment: 30 to [address] [facility] 12-01-2023 Miscellaneous Notes Pharmacy comment: 30 to 90 day supply. documented in this encounter [facility] 09-09-2023 Instructions Tyrone Gay APRN.JOSSY - 09/09/2023 9:25 AM EST Basal rate: 00:00= 0.3 Bolus: Insulin:carb ratio 00:00= 5 1000=10 4 pm=8 Sensitivity 00:00= 35 Blood glucose target 00:00= 120 Insulin duration= 4 hr Start amlodipine 5 mg daily Follow up in 3 months Tyrone Gay, MSN, TERRITORY MANAGER [employer], WATCH SUPERVISOR-C, CDE Endocrinology [facility]/[address], [address] [place] [address] Fax: documented in this encounter [facility] 09-09-2023 History of Presen t illness Narrative Reason for Consultation: DM Type 1 Referring Physician: SELF HISTORY OF PRESENT ILLNESS Mr. Lance is a 68 year old male presenting here today for a follow up of DM Type 1. As I recall, he was initially diagnosed with diabetes August 2016. LV 04/29/23 A1C today is 7.3 History of diabetes, obesity, hypertension He was on prednisone and BG was higher. Also was on vacation and the holidays. +HOSEA antibody in 2018 Started Omnipod 5 insulin pump 11/26/22 Had eye exam in 2022. Current diabetes regimen is as follows: Glucagon: baqsimi Basal insulin for back up: Toujeo Humalog via Omnipod 5 pump Basal rate: 00:00= 0.3 Bolus: Insulin:carb ratio 00:00= 6 1000=12 3 pm=10 Sensitivity 00:00= 35 Blood glucose target 00:00= 120 Insulin duration= 4 hr Automated mode 99 % Basal/day= 31.3 units or 59% Bolus/day= 22.1 units or 41% Previous diabetes medication: jardiance Glimepiride he is checking his blood glucose with Dexcom G6 CGM he does bring a log book today for review. LDE Blood Sugar Frequency: Dexcom download (08/27/23 to 09/09/23) Target range 65 % High 26% Very high 8 % Low 1% Very low 0% BG average 167 Estimated A1C 7.3 BG ranges lo to hi BG is stable at goal overnight. Glucose starts to rise about 9-10 AM (after breakfast) He is highest after dinner from 6 pm to 9 pm and starts to come back down. Hypoglycemia frequency: occasionally Hypoglycemia awareness: No; not always sensing Regarding symptoms of hypoglycemia, he is not experiencing any symptoms such as polyuria, polydipsia, nocturia or rapid weight loss or blurry vision, Overall, the patient has no acute complaints at this time. HTN: Switched from lisinopril to valsartan in July due to uncontrolled BP and cough with ELDER. PAST MEDICAL HISTORY Diagnosis Date Diabetes (HCC) Essential hypertension PAST SURGICAL HISTORY Procedure Laterality Date COLONOSCOPY FLX DX W/COLLJ SPEC WHEN PFRMD 04-03-14 LAPS SURG CHOLECYSTECTOMY W/CHOLANGIOGRAPHY 04-17-14 TONSILLECTOMY & ADENOIDECTOMY <AGE 13 FAMILY HISTORY Problem Relation Age of Onset Hypertension Mother Hypertension Father other (traumatic amputation) Father Cancer Paternal Grandmother Cancer Paternal Grandfather Diabetes Maternal Uncle Diabetes Maternal Aunt Social History Tobacco Use Smoking status: Never Smokeless tobacco: Never Substance Use Topics Alcohol use: No Drug use: No Allergies As of Date: 09/09/2023 Allergen Noted Reaction CEPHALEXIN 03/27/2014 Rash LISINOPRIL 07/27/2023 Cough PENICILLINS 03/27/2014 Rash Fully Assessed 09/09/2023 Current Outpatient Medications Medication Sig Dispense Refill valsartan (DIOVAN) 320 mg tablet Take 1 tablet by mouth once daily. 90 tablet 3 Lactobacillus acidophilus (FLORAJEN ACIDOPHILUS) 20 billion cell capsule Take 1 capsule by mouth once daily. 30 capsule 0 insulin lispro (HUMALOG KWIKPEN INSULIN) 100 unit/mL inject subcutaneously PER RATIO: BREAKFAST 1:6, LUNCH 1:10, DINNER1:12 PLUS SLIDING SCALE *MAX DAILY DOSE 60 UNITS*; if insulin pump fails 60 mL 3 insulin glargine U-300 conc (TOUJEO SOLOSTAR U-300 INSULIN) 300 unit/mL (1.5 mL) Inject 10 Units subcutaneously every morning. If insulin pump fails 3 Each 3 OMNIPOD 5 G6 INTRO KIT, GEN 5, crtg Inject 1 Each subcutaneously as directed. 1 Each 0 Blood-Glucose Meter,Continuous (DEXCOM G6 CEMENT MASON HELPER) misc Use continuously to monitor glucose, IDDM, E 10.9 1 Each 0 insulin lispro (HUMALOG U-100 INSULIN) 100 unit/mL injection Infuse up to 100 units daily via insulin pump 30 mL 11 OMNIPOD 5 G6 PODS, GEN 5, crtg Inject 1 Each subcutaneously every 72 hours. (use one pod every 72 hours) 10 Each 11 Blood-Glucose Sensor (DEXCOM G6 SENSOR) marquis Use one sensor every 10 days, IDDM, E 10.9 3 Each 11 Blood-Glucose Transmitter (DEXCOM G6 TRANSMITTER) marquis Use one transmitter every 3 months, IDDM, E 10.9 1 Each 3 glucagon (BAQSIMI) 3 mg/actuation nasal spray Use 1 Hext in the nose as needed. May repeat after 15 minutes using a new device if there is no response. 2 Each 2 amLODIPine (NORVASC) 5 mg tablet Take 1 tablet by mouth once daily. 30 tablet 5 insulin needles, DISPOSABLE, (DROPLET PEN NEEDLE) 31 gauge x 5/16" USE 4 PEN NEEDLES DAILY IF INSULIN PUMP FAILS 400 Each 3 No current facility-administered medications for this visit. REVIEW OF SYSTEMS Answers submitted by the patient for this visit: Core Review of Systems (Submitted on 09/07/2023) Fever : No Night sweats: No Recent unintentional weight change: No Nasal Congestion: No Hearing Loss: No Vision Disturbance: No A cough: No Difficulty Breathing?: No Chest pain: No Irregular heartbeat: No Leg Swelling: Yes Nausea: No Diarrhea: No Black tarry stools: No Difficulty Urinating?: No Awaken at Night More Than Once to Urinate?: No Joint pain or stiffness: No Muscle aches: No Leg or Foot Discomfort at Night?: No A rash: No Dizziness: No Headaches: No Memory Loss: No Seizures: No PHYSICAL EXAMINATION BP 160/80 Pulse 61 Ht 182.9 cm (6' 0.01") Wt 107.8 kg (237 lb 10.5 oz) SpO2 98% BMI 32.22 kg/m2 Physical Exam Constitutional: Appearance: Normal appearance. Cardiovascular: Rate and Rhythm: Normal rate and regular rhythm. Pulmonary: Effort: Pulmonary effort is normal. Breath sounds: Normal breath sounds. Skin: General: Skin is warm and dry. Neurological: Mental Status: He is alert and oriented to person, place, and time. Psychiatric: Mood and Affect: Mood normal. Behavior: Behavior normal. Feet:Shoes and socks removed, sensitive to 10 gm monofilament, and calluses noted bilaterally; dry skin DATA Creatinine Date Value Ref Range Status 01/21/2023 1.08 0.73 - 1.22 mg/dL Final Hemoglobin A1C (POCT) (%) Date Value 09/09/2023 7.3 ) No components found for: URINEALBUMIN Cholesterol, Total (mg/dL) Date Value 01/21/2023 177 11/11/2020 141 HDL Cholesterol (mg/dL) Date Value 01/21/2023 36 11/11/2020 39 LDL Cholesterol (mg/dL) Date Value 01/21/2023 114 11/11/2020 89 Triglyceride (mg/dL) Date Value 01/21/2023 133 11/11/2020 63 IMPRESSION: Mr. Lance is a 68 year old male here for evaluation of DM Type 1 complicated by hypoglycemia,obesity, hypertension RECOMMENDATIONS: (E10.649) Type 1 diabetes mellitus with hypoglycemia and without coma (HCC) (primary encounter diagnosis) Comment: Glycemic control is trending higher. Insulin pump adjusted. Plan: insulin lispro (HUMALOG U-100 INSULIN) 100 unit/mL injection, OMNIPOD 5 G6 PODS, GEN 5, crtg, Blood-Glucose Sensor (DEXCOM G6 SENSOR) marquis, Blood-Glucose Transmitter (DEXCOM G6 TRANSMITTER) marquis, glucagon (BAQSIMI) 3 mg/actuation nasal spray, HEMOGLOBIN A1C (POC) Continue CGM Baqsimi script updated. Basal rate: 00:00= 0.3 Bolus: Insulin:carb ratio 00:00= 5 1000=10 4 pm=8 Sensitivity 00:00= 35 Blood glucose target 00:00= 120 Insulin duration= 4 hr Follow up in 3 months (I10) Primary hypertension Comment: BP remains above goal. Plan: amLODIPine (NORVASC) 5 mg tablet Continue valsartan Add amlodipine 5 mg daily. Recommend he see PCP as well or I can refer to cardiology. (E66.9) Obesity, Class I, BMI 30-34.9 Comment/Plan: Body mass index is 32.22 kg/m . (Z96.41) Insulin pump status Comment/Plan: Omnipod 5 and Dexcom G6 CGM Medical Decision Making: Level: 4 - Moderate Tyrone Gay, MSN, TERRITORY MANAGER [employer], WATCH SUPERVISOR-C, CDE Endocrinology [facility] Building/[facility] [address] [place] [address], [address] [place], [place] [address] Fax: documented in this encounter [facility] 07-13-2023 Progress note Note Date/Time July 13, 2023 9:59am [facility] [address] [place] [address] Progress Note - Wound Care 07/13/23 0957 MR#: [id number] Acct: [id number] Name: ARGENTINA LANCE Rep #:[id number] : 1955 68 From: Jacklyn Sullivan NP WATCH SUPERVISOR-C PCP: Dr. Grecia Cesar MD Status:REG RC R Location: History of Present Illness Date of Service: 07/13/23 Chief Complaint: Follow-up right fragoso traumatic wound History of Wound: This is a 68-year-old white male that was kicked in the fragoso by a steer and developed a open wound for about 3 to 4 weeks and I saw him in [facility]. That was 2 weeks ago. Patient was cultured which was negative and started on calcium alginate with Adaptic over top and compression stockings at that point I had Elder wrap to him and told him to buy compression stockings. He states that he has been doing that and the measurements it looks good it still looks some depth and cleaning out still has some slough in it like it did the first time I met him. Progress of Wound: Today the wound is healed patient be discharged from the wound center. Subjective Subjective Patient is very pleased with outcomes and has no concerns Objective Data Objective Data Objectives of met patient has resolved on his wound patient will be discharged from the wound center and follow-up as needed Vital Signs: Vital Signs Temp Pulse Resp BP 97.6 F L 63 20 H 158/102 H 07/13/23 08:06 07/13/23 08:06 07/13/23 08:06 07/13/23 08:06 Physical Exam Const oriented x3 General Appearance: cooperative Exam Limitations: no limitations HEENT normocephalic Head and Scalp: normal to inspection Eyes PERRL Resp normal respiratory effort Effort and Inspection: able to speak in complete sentences Auscultation: clear to auscultation bilaterally Cardio regular rate and regular rhythm Palpation: normal PMI Rate: regular rate Rhythm: regular rhythm GI Auscultation: normoactive bowel sounds Palpation: soft and no hepatosplenomegaly Extremity General Extremity: normal exam except as noted Skin no rashes or lesions noted Trauma: other Open wound nonhealing from a kick from a steer Neuro oriented x3 Psych Appearance: grossly normal Speech: normal speech Thought Content: normal thought content Judgement: judgement good Debridement Note Debridement Note No debridement was completed: No debridement was completed today Post-Debridement Measurements and Additional Note: Post-Debridement Measurements/Treatment WC - Nurse 1 - General Ulcer Assessment Start: 07/13/23 08:06 Freq: Status: Active Protocol: DANIELA Activity Type Activity Date Activity User E-sign Co-sign Detail Recorded Client Recorded Date Recorded By Document 07/13/23 08:06 DL Desktop 07/13/23 08:10 DL 07/13/23 08:06 WC - Today's Visit Information Type of service Follow-up Visit (Physician/LEI SELLER ) Arrival Mode Ambulatory Transfer Assistance None Patient Identification Verified (Name & Yes ) Patient Requires Transmission-Based No Precautions Vital Signs Temperature (97.8 F-99.1 F) 97.6 F L Temperature Source Temporal Pulse Rate (60-100) 63 Pulse Location Monitor Respiratory Rate (12-18) 20 H Respiratory rate source Observation Blood Pressure (90/60-120/80) 158/102 H Blood Pressure Mean (mm Hg) 120 Source Monitor History Since Last Visit- (Skip if this is Patient's initial visit) Have you changed medications since your No last visit? Any new allergies or adverse reactions No Had a fall/change in ADL's that may No increase risk of falls Signs or symptoms of abuse and/or No neglect since last visit Have you been in the hospital since your No last visit? Has dressing in place as prescribed Yes Has compression in place as prescribed Yes Has offloadiing in place as prescribed N/A Experienced any changes in pain level or No management Pain Scale: 0-10 Numeric Is Patient Pain Free? Yes RIAZ - Nurse 1 - General Ulcer Measurement Start: 07/13/23 08:06 Freq: Status: Active Protocol: Activity Type Activity Date Activity User E-sign Co-sign Detail Recorded Client Recorded Date Recorded By Document 07/13/23 08:06 DL [employer] 07/13/23 08:10 DL 07/13/23 08:06 Wound Center Nurse 1 1.R fragoso -Current Size (cm) - Length 0.2 -Current Size (cm) - Width 0.2 -Current Size (cm) - Depth 0.1 -Total Square Cm 0.04 -Photo Taken No -Exudate Amt Small -Exudate Type Serosanguineous -Wound Margin Distinct, Outline Attached -Granulation Amt Small (1-33%) -Granulation Quality Pale -Necrosis Amt Small (1-33%) -Necrotic Tissue Type Adherent Slough -Structure Exposed N/A -Texture (Bobbi-wound Skin Appearance) Scarring -Moisture (Bobbi-wound Skin Appearance) No Abnormality -Color (Bobbi-wound Skin Appearance) No Abnormality -Temperature (Bobbi-wound Skin No Abnormality Appearance) (Pt Warm) -Tenderness on Palpation (Bobbi-wound No Skin Appearance) -Ulcer Cleansing Rinsed/ Irrigated with Saline -Foul Odor after Cleansing No -Anesthetic Used 5% Lidocaine Gel Left Calf (cm) 38.5 Left Ankle (cm) 23.7 WC - Nurse 2 - General Ulcer CM Notes Start: 07/13/23 08:06 Freq: Status: Active Protocol: Activity Type Activity Date Activity User E-sign Co-sign Detail Recorded Client Recorded Date Recorded By Document 07/13/23 08:29 MW Desktop 07/13/23 08:30 MW 07/13/23 08:29 Wound Center Nurse 2 1.R fragoso -Time 08:29 -Correct Patient Yes -Correct Side, Site, Position Yes -Correct Procedure Yes -Procedure Performed No -Post Debridement (cm) - Length 0 -Post Debridement (cm) - Width 0 -Post Debridement (cm) - Depth 0 -Total Square (Post) (cm) 0 -Wound/Ulcer Outcome Healed- Epithelialized Pain Scale: 0-10 Numeric Is Patient Pain Free? Yes WC - Nurse 3 - General Ulcer D/C NN Start: 07/13/23 08:06 Freq: Status: Active Protocol: Activity Type Activity Date Activity User E-sign Co-sign Detail Recorded Client Recorded Date Recorded By Document 07/13/23 08:38 DL [employer] 07/13/23 08:38 DL 07/13/23 08:38 Wound Care Center Nurse 3 1.R fragoso -Ulcer Cleansing Rinsed/ Irrigated with Saline -Foul Odor after Cleansing No -Primary Dressing Applied Mepilex Border, Promogran Zulema Matter -Mepilex Border 1 -Promogran Zulema Matter 1 Treatment Response Procedure Tolerated Well Pain Scale: 0-10 Numeric Is Patient Pain Free? Yes WC - Visit Discharge Discharge Condition Stable Ambulatory Status Ambulatory Transportation Private Auto Assessment/Plan Assessment/Plan (1) Traumatic skin ulcer with fat layer exposed: CODE(S): L98.492 - Non-pressure chronic ulcer of skin of other sites with fat layer exposed (2) Nonhealing nonsurgical wound: CODE(S): T14.8XXA - Other injury of unspecified body region, initial encounter PLAN: Discharge from the wound center and follow-up as needed 07/13/23 0959 <Electronically signed by Jacklyn Sullivan NP WATCH SUPERVISOR-C> Cosigner Signature (if applicable): CC: ~ Signed [facility] Work Phone: 1(677) 273-539111-22-2023 Progress note Author Jacklyn Sullivan [facility] June 22, 2023 12:44pm Note Date/Time June 22, 2023 12:44pm [facility] [address] [place] [id number] Progress Note - Wound Care 06/22/23 1238 MR#: [id number] Acct: [id number] Name: ARGENTINA LANCE Rep #:[id number] : 1955 68 From: Jacklyn Sullivan NP WATCH SUPERVISOR-C PCP: Dr. Grecia Cesar MD Status:REG RC R Location: History of Present Illness Date of Service: 06/22/23 Chief Complaint: Follow-up right fragoso traumatic wound History of Wound: This is a 68-year-old white male that was kicked in the fragoso by a steer and developed a open wound for about 3 to 4 weeks and I saw him in [facility]. That was 2 weeks ago. Patient was cultured which was negative and started on calcium alginate with Adaptic over top and compression stockings at that point I had Elder wrap to him and told him to buy compression stockings. He states that he has been doing that and the measurements it looks good it still looks some depth and cleaning out still has some slough in it like it did the first time I met him. Progress of Wound: Today we are going to switch him over to Zulema with Adaptic over top and compression stockings Subjective Subjective Was agreeable Objective Data Objective Data The wound looks good has a little depth small amount of slough but nothing worsening. States the pain is better. And also wearing his compression stockings on a daily basis Vital Signs: Vital Signs Temp Pulse Resp BP 97 F L 59 L 18 177/67 H 06/22/23 08:17 06/22/23 08:17 06/22/23 08:17 06/22/23 08:17 Physical Exam Const oriented x3 General Appearance: cooperative Exam Limitations: no limitations HEENT normocephalic Head and Scalp: normal to inspection Eyes PERRL Resp normal respiratory effort Effort and Inspection: able to speak in complete sentences Auscultation: clear to auscultation bilaterally Cardio regular rate and regular rhythm Palpation: normal PMI Rate: regular rate Rhythm: regular rhythm GI Auscultation: normoactive bowel sounds Palpation: soft and no hepatosplenomegaly Extremity General Extremity: normal exam except as noted Skin no rashes or lesions noted Trauma: other Open wound nonhealing from a kick from a steer Neuro oriented x3 Psych Appearance: grossly normal Speech: normal speech Thought Content: normal thought content Judgement: judgement good Debridement Note Debridement Note Wound debrided: Right fragoso traumatic wound Type of Debridement: Excisional debridement Anesthesia Used: 5% Lidocaine Gel Depth: Down to and including healthy tissue Percentage of wound debrided: 100 Instrument Used: 3mm curette Tissue Removed: Slough Severity: Fat Layer Exposed Amount of bleeding with debridement: Mild Bleeding Controlled with: Compression and gauze Patient tolerated procedure: Patient tolerated procedure well Post-Debridement Measurements and Additional Note: Post-Debridement Measurements/Treatment RIAZ - Nurse 1 - General Ulcer Assessment Start: 06/22/23 08:16 Freq: Status: Active Protocol: DANIELA Activity Type Activity Date Activity User E-sign Co-sign Detail Recorded Client Recorded Date Recorded By Document 06/22/23 08:17 Desktop 06/22/23 08:32 RB 06/22/23 08:17 - Today's Visit Information Type of service Initial Visit Arrival Mode Ambulatory Transfer Assistance None Patient Identification Verified (Name & Yes ) Patient Requires Transmission-Based No Precautions Vital Signs Temperature (97.8 F-99.1 F) 97 F L Temperature Source Temporal Pulse Rate (60-100) 59 L Pulse Location Monitor Respiratory Rate (12-18) 18 Respiratory rate source Observation Blood Pressure (90/60-120/80) 177/67 H Blood Pressure Mean (mm Hg) 103 Source Monitor Position Semi-Fowlers Blood Pressure Location Left Arm History Since Last Visit- (Skip if this is Patient's initial visit) Have you changed medications since your No last visit? Any new allergies or adverse reactions No Had a fall/change in ADL's that may No increase risk of falls Signs or symptoms of abuse and/or No neglect since last visit Have you been in the hospital since your No last visit? Has dressing in place as prescribed Yes Has compression in place as prescribed No Has offloadiing in place as prescribed No Experienced any changes in pain level or No management Pain Scale: 0-10 Numeric Is Patient Pain Free? Yes Lower Extremity Assessment/ Foot Assessment/ Toe Nail Assessment Right -Posterior Tibial Palpable Yes -Posterior Tibial Doppler Multiphasic -Dorsalis Pedis Palpable Yes -Dorsalis Pedis Doppler Multiphasic -Extremity Color Normal -Hair Growth on Legs Yes -Hair Growth on Toes No -Temperature of Extremity Warm -Capillary Refill Less than 3 Seconds -Dependent Rubor No -Blanched when Elevated No -Lipodermatosclerosis No -Other Deformity No -Prior Foot Ulcer No -Charcot Joint No -Prior Amputation No -Thick No -Discolored No -Deformed No -Improper Length & Hygeine Yes Left -Posterior Tibial Palpable Yes -Posterior Tibial Doppler Multiphasic -Dorsalis Pedis Palpable Yes -Dorsalis Pedis Doppler Multiphasic -Extremity Color Normal -Hair Growth on Legs Yes -Hair Growth on Toes No -Temperature of Extremity Warm -Capillary Refill Less than 3 Seconds -Dependent Rubor No -Blanched when Elevated No -Lipodermatosclerosis No -Other Deformity No -Prior Foot Ulcer No -Charcot Joint No -Prior Amputation No -Thick No -Discolored No -Deformed No -Improper Length & Hygeine Yes Neuropathy Assessment Feet - Top Side and Bottom <Entered> (a) Communication Assessment Preferred language Kyrgyz Adding Machine Operator Required No Able to Read Yes Able to Write Yes Communication Tools None Caregiver Communication Skills No Impairment Impairment Right Hearing Abillity Normal Left Hearing Abillity Normal Visual Assistive Devices Glasses Teaching Assessment Preferences Verbal,Written Barriers to Learning None Readiness To Learn Good Willingness to Engage in Self Management Med Activies Readiness to Engage in Self Management Med Activities Anxiety Level Calm Cooperation Cooperative Perception Coherent Interest in Health Problem Asks Questions Education Importance Acknowledges Need Does Patient Smoke tobacco or other No substances Smoking Status Never smoker Is Patient Diabetic Yes Functional Assessment Recent Decline in Ability to Perform Denies Any Declines Assistive Device With Patient No Culture/Buddhism/Telecommunications Network Planner Cultural/Buddhism Needs that may affect No Treatment Plan Would you allow our [facility] licensed guide to No meet you for the purpose of spiritual/ emotional support? Telecommunications Network Planner to contact place of zoroastrian No Teaching: Wound Center *Welcome to the Wound Center -Person Taught Patient -Teaching Method Discussion, Demonstration -Response to teaching Verbalize understanding (a) 1 - + throughout WC - Nurse 1 - General Ulcer Measurement Start: 06/22/23 08:16 Freq: Status: Active Protocol: Activity Type Activity Date Activity User E-sign Co-sign Detail Recorded Client Recorded Date Recorded By Document 06/22/23 08:17 RB Desktop 06/22/23 08:32 RB 06/22/23 08:17 Wound Center Nurse 1 1.R fragoso -Combined with other wound No -Current Size (cm) - Length 0.6 -Current Size (cm) - Width 0.8 -Current Size (cm) - Depth 0.2 -Total Square Cm 0.48 -Photo Taken Yes -Tunneling No -Undermining/Tunneling No -Circular Undermining No -Exudate Amt Medium -Exudate Type Serosanguineous -Wound Margin Distinct, Outline Attached -Granulation Amt Medium (34-66%) -Granulation Quality Assaria -Slough/Fibrin Yes -Necrosis Amt Medium (34-66%) -Necrotic Tissue Type Adherent Slough -Structure Exposed N/A -Texture (Bobbi-wound Skin Appearance) Assessed -Moisture (Bobbi-wound Skin Appearance) Assessed -Color (Bobbi-wound Skin Appearance) Assessed, Erythema -Temperature (Bobbi-wound Skin No Abnormality Appearance) (Pt Warm) -Tenderness on Palpation (Bobbi-wound No Skin Appearance) -Ulcer Cleansing Wound Cleanser -Foul Odor after Cleansing No -Anesthetic Used 5% Lidocaine Gel Lower Limb Edema Present Yes Right Calf (cm) 39.5 Right Ankle (cm) 23.5 Left Calf (cm) 41 Left Ankle (cm) 23.5 WC - Nurse 2 - General Ulcer CM Notes Start: 06/22/23 08:16 Freq: Status: Active Protocol: Activity Type Activity Date Activity User E-sign Co-sign Detail Recorded Client Recorded Date Recorded By Document 06/22/23 08:43 RB Desktop 06/22/23 08:46 RB 06/22/23 08:43 Wound Center Nurse 2 1.R fragoso -Time 08:44 -Correct Patient Yes -Correct Side, Site, Position Yes -Correct Procedure Yes -Procedure Performed Yes -Type of Procedure Debridement -Clinical Debridement Subcutaneous -Tissue Removed Subcutaneous -Post Debridement (cm) - Length 0.6 -Post Debridement (cm) - Width 0.9 -Post Debridement (cm) - Depth 0.2 -Total Square (Post) (cm) 0.54 -Area of Debridement (cm) - Length 0.6 -Area of Debridement (cm) - Width 0.9 -Total Square (Area) (cm) 0.54 -Tunneling No -Undermining/Tunneling No -Circular Undermining No -Wound/Ulcer Outcome Not Healed -Ulcer Cleansing Rinsed/ Irrigated with Saline -Foul Odor after Cleansing No -Bioengineered Tissue No -Bleeding Controlled with Pressure -Treatment Response Procedure Tolerated Well -Offloading No -Debridement - Subq, 1st 20sq cm Yes Pain Scale: 0-10 Numeric Is Patient Pain Free? Yes - Nurse 3 - General Ulcer D/C NN Start: 06/22/23 08:16 Freq: Status: Active Protocol: Activity Type Activity Date Activity User E-sign Co-sign Detail Recorded Client Recorded Date Recorded By Document 06/22/23 08:54 RB Desktop 06/22/23 08:55 RB 06/22/23 08:54 Wound Care Center Nurse 3 1.R fragoso -Ulcer Cleansing Not Cleansed -Foul Odor after Cleansing No -Primary Dressing Applied Mepilex Border, NonAdherent Contact Layer, Promogran -Mepilex Border 1 -Promogran 1 Pain Scale: 0-10 Numeric Is Patient Pain Free? Yes Teaching: Wound Center Keeping legs elevated -Person Taught Patient -Teaching Method Discussion -Response to teaching Verbalize understanding Dressing Your Wound -Person Taught Patient -Teaching Method Discussion, Demonstration -Response to teaching Verbalize understanding WC - Visit Discharge Discharge Condition Stable Ambulatory Status Ambulatory Transportation Private Auto Medication Reconcilliation completed & Yes provided to patient/care provider Clinical Summary of Care Provided Yes Assessment/Plan Assessment/Plan (1) Traumatic skin ulcer with fat layer exposed: CODE(S): L98.492 - Non-pressure chronic ulcer of skin of other sites with fat layer exposed (2) Nonhealing nonsurgical wound: CODE(S): T14.8XXA - Other injury of unspecified body region, initial encounter PLAN: Wash right fragoso with antibacterial soap and water apply the Zulema to the wound base cover with Adaptic and then I a foam dressing every day Wear compression stockings every day Follow-up in 3 weeks 06/22/23 1244 <Electronically signed by Jacklyn Sullivan NP, NP-C> Cosigner Signature (if applicable): CC: ~ Signed [facility] Work Phone: 1(770) 263-567011-07-2023 Miscellaneous Notes* Telephone Encounter - Nahomy Beth RN - 06/07/2023 4:08 PM EST Becki from [place] [facility] called nurse line and left VM asking for us to fax demographics sheet and progress notes to [phone]. Demographics sheet, progress notes, and encounter about wound faxed to [facility]. Transmission Ok (17 pages). * Telephone Encounter - Thania Beth MA - 06/07/2023 2:09 PM EST Faxed to [phone] transmission successful * Telephone Encounter - Tyrone Gay APRN.CNP - 06/07/2023 2:03 PM EST Please fax order for wound care to [facility]. Thank you documented in this [facility] History of Present illness Narrative* Isaiah Daniel APRN.LEI SELLER - 05/30/2023 7:03 PM EDT Images from the original note were not included. Subjective HPI Nontoxic-appearing male presents urgent care chief complaint poor healing wound. Duration of symptoms 2 weeks. Associated symptoms pain redness swelling. Patient states with kicked in the right lowerleg by a cow 2 weeks ago. Has been keeping area clean dry and covered. Has been using Neosporin multiple times a day as well as hydroperoxide. Presents today for evaluation. Concerned about possible cellulitis. Is a type I diabetic. Denies any neuropathy. Overall feels well. No numbness no tingling. No decrease sensation. No fever body aches chills nausea vomiting abdominal pain. Past medical history prescription medication use allergies reviewed. .Patient presents with: Leg Injury: R fragoso injury x2 weeks, possible skin infection PAST MEDICAL HISTORY Diagnosis Date Diabetes (HCC) PAST SURGICAL HISTORY Procedure Laterality Date COLONOSCOPY FLX DX W/COLLJ SPEC WHEN PFRMD 04-03-14 LAPS SURG CHOLECYSTECTOMY W/CHOLANGIOGRAPHY 04-17-14 TONSILLECTOMY & ADENOIDECTOMY <AGE 12 ALLERGIES Cephalexin and Penicillins MEDICATIONS lisinopril (ZESTRIL) 20 mg tablet Take 1 tablet by mouth once daily. insulin needles, DISPOSABLE, (DROPLET PEN NEEDLE) 31 gauge x 5/16" USE 4 PEN NEEDLES DAILY IF INSULIN PUMP FAILS glucagon (BAQSIMI) 3 mg/actuation nasal spray Use 1 Hext in the nose as needed. May repeat after 15 minutes using a new device if there is no response. insulin lispro (HUMALOG KWIKPEN INSULIN) 100 unit/mL inject subcutaneously PER RATIO: BREAKFAST 1:6, LUNCH 1:10, DINNER1:12 PLUS SLIDING SCALE *MAX DAILY DOSE 60 UNITS*; if insulin pump fails insulin glargine U-300 conc (TOUJEO SOLOSTAR U-300 INSULIN) 300 unit/mL (1.5 mL) Inject 10 Units subcutaneously every morning. If insulin pump fails insulin lispro (HUMALOG U-100 INSULIN) 100 unit/mL injection Infuse up to 100 units daily via insulin pump OMNIPOD 5 G6 INTRO KIT, GEN 5, crtg Inject 1 Each subcutaneously as directed. OMNIPOD 5 G6 PODS, GEN 5, crtg Inject 1 Each subcutaneously every 72 hours. (use one pod every 72 hours) Blood-Glucose Sensor (DEXCOM G6 SENSOR) marquis Use one sensor every 10 days, IDDM, E 10.9 Blood-Glucose Transmitter (DEXCOM G6 TRANSMITTER) marquis Use one transmitter every 3 months, IDDM, E 10.9 Blood-Glucose Meter,Continuous (DEXCOM G6 CEMENT MASON HELPER) misc Use continuously to monitor glucose, IDDM,E 10.9 FAMILY HISTORY Problem Relation Age of Onset Hypertension Mother Hypertension Father other (traumatic amputation) Father Cancer Paternal Grandmother Cancer Paternal Grandfather Diabetes Maternal Uncle Diabetes Maternal Aunt Social History Tobacco Use Smoking status: Never Smokeless tobacco: Never Substance Use Topics Alcohol use: No Drug use: No BP 163/83 Pulse 67 Temp 36.5 C (97.7 F) Resp 18 Wt 106.1 kg (233 lb 12.8 oz) SpO2 96% BMI 31.70 kg/m Review of Systems Constitutional: Negative for chills, fever and malaise/fatigue. HENT: Negative for congestion, ear discharge, ear pain, sinus pain and sore throat. Eyes: Negative for blurred vision, pain, discharge and redness. Respiratory: Negative for cough, hemoptysis, sputum production, shortness of breath, wheezing and stridor. Cardiovascular: Negative for chest pain. Gastrointestinal: Negative for abdominal pain, diarrhea, nausea and vomiting. Musculoskeletal: Negative for myalgias. Skin: Negative for itching and rash. Neurological: Negative for dizziness and headaches. Objective Physical Exam Constitutional: General: He is not in acute distress. Appearance: He is not toxic-appearing. HENT: Head: Normocephalic. Nose: Nose normal. Eyes: Pupils: Pupils are equal, round, and reactive to light. Cardiovascular: Rate and Rhythm: Normal rate. Pulmonary: Effort: Pulmonary effort is normal. No respiratory distress. Musculoskeletal: Cervical back: Normal range of motion. Skin: General: Skin is warm and dry. Comments: A 2 cm x 2 cm wound noted highlighted area. Surrounding erythema noted. Some edema. No remote redness. No drainage. Neurological: General: No focal deficit present. Mental Status: He is alert. ASSESSMENT/PLAN: 1. Cellulitis of skin - ICD9: 682.9, ICD10: L03.90 Diagnosed with cellulitis. No remote redness. Hemodynamically stable. Normal kidney function. Allergies to penicillin and cephalexin. Placed on clindamycin. Risk of medication discussed. Follow-up with PCP 2 to 3 days wound reevaluation. Wound care discussed. Patient was educated on supportive therapies. Patient will follow up with primary care provider as needed. Patient was instructed to immediately proceed to emergency room for any new, worsening, or symptoms lasting longer than anticipated.The patient's clinical presentation is otherwise unremarkable at this time. Based on exam and clinical finding, the patient is stable for discharge. Plan of care was discussed with patient. Patient ve rbalizes understanding and agrees to plan of care. This note was generated using [employer] software. It may contain errors in wording, punctuation, or spelling. Isaiah Daniel APRN.JOSSY documented in this encounter[facility]23 Miscellaneous Notes* Telephone Encounter - Inés Delacruz RN - 05/02/2023 2:09 PM EDT Patient called and left a message that he was having issues with his new PDM replacement that was sent. It is allowing less correctional than he had in past per pt VM. Called back and reach VM. I looked up downloads and they show that patient's setting are correctly entered in the new PDM so I am unsure what is causing him to feel it is allowing much less correctional. Encouraged him to reach out to [employer] Customer support for additional advice as settings did not appear to be different in the reports. documented in this encounterMount [facility] History of Present illness Narrative* Tyrone Gay APRN.CNP - 04/29/2023 3:45 PM EDT Reason for Consultation: DM Type 1 Referring Physician: SELF HISTORY OF PRESENT ILLNESS Mr. Lance is a 67 year old male presenting here today for a follow up of DM Type 1. As I recall, he was initially diagnosed with diabetes August 2016. LV 01/25/23 Arrived 20 min late to appointment. A1C today is 6.6 History of diabetes, obesity, hypertension +HOSEA antibody in 2018 He doubled lisinopril to 10 mg daily and BP still high at home Started Omnipod 5 insulin pump 11/26/22 Current diabetes regimen is as follows: Glucagon: baqsimi Basal insulin for back up: Toujeo Humalog via Omnipod 5 pump Basal rate: 00:00= 0.3 Bolus: Insulin:carb ratio 00:00= 6 1000=12 3 pm=10 Sensitivity 00:00= 35 Blood glucose target 00:00= 120 Insulin duration= 4 hr Automated mode 91 % Basal/day= 16.7 units or 45% Bolus/day=20.7 units or 55% Previous diabetes medication: jardiance Glimepiride he is checking his blood glucose with Dexcom G6 CGM he does bring a log book today for review. LDE Blood Sugar Frequency: Dexcom 7 day download (04/22/23 to 04/28/23 ) Target range 80 % High 14% Very high 2% Low 3% Very low 1% BG average 136 Estimated A1C --- BG ranges 41 to 277 BG is best from 1 AM to 4 AM and 11 AM to 3 pm. Tends to be near low range at various points during day Hypoglycemia frequency:occasionally Hypoglycemia awareness: No; not always sensing Regarding symptoms of hypoglycemia, he is not experiencing any symptoms such as polyuria, polydipsia, nocturia or rapid weight loss or blurry vision, Overall, the patient has no acute complaints at this time. PAST MEDICAL HISTORY Diagnosis Date Diabetes (HCC) PAST SURGICAL HISTORY Procedure Laterality Date COLONOSCOPY FLX DX W/COLLJ SPEC WHEN PFRMD 04-03-14 LAPS SURG CHOLECYSTECTOMY W/CHOLANGIOGRAPHY 04-17-14 TONSILLECTOMY & ADENOIDECTOMY <AGE 13 FAMILY HISTORY Problem Relation Age of Onset Hypertension Mother Hypertension Father other (traumatic amputation) Father Cancer Paternal Grandmother Cancer Paternal Grandfather Diabetes Maternal Uncle Diabetes Maternal Aunt Social History Tobacco Use Smoking status: Never Smokeless tobacco: Never Substance Use Topics Alcohol use: No Drug use: No Allergies As of Date: 04/29/2023 Allergen Noted Reaction CEPHALEXIN 03/27/2014 Rash PENICILLINS 03/27/2014 Rash Fully Assessed 04/29/2023 Current Outpatient Medications Medication Sig Dispense Refill glucagon (BAQSIMI) 3 mg/actuation nasal spray Use 1 Hext in the nose as needed. May repeat after 15 minutes using a new device if there is no response. 2 Each 2 insulin lispro (HUMALOG KWIKPEN INSULIN) 100 unit/mL inject subcutaneously PER RATIO: BREAKFAST 1:6, LUNCH 1:10, DINNER1:12 PLUS SLIDING SCALE *MAX DAILY DOSE 60 UNITS*; if insulin pump fails 60 mL 3 insulin glargine U-300 conc (TOUJEO SOLOSTAR U-300 INSULIN) 300 unit/mL (1.5 mL) Inject 10 Units subcutaneously every morning. If insulin pump fails 3 Each 3 insulin lispro (HUMALOG U-100 INSULIN) 100 unit/mL injection Infuse up to 100 units daily via insulin pump 30 mL 11 OMNIPOD 5 G6 INTRO KIT, GEN 5, crtg Inject 1 Each subcutaneously as directed. 1 Each 0 OMNIPOD 5 G6 PODS, GEN 5, crtg Inject 1 Each subcutaneously every 72 hours. (use one pod every 72 hours) 10 Each 11 Blood-Glucose Sensor (DEXCOM G6 SENSOR) marquis Use one sensor every 10 days, IDDM, E 10.9 3 Each 11 Blood-Glucose Transmitter (DEXCOM G6 TRANSMITTER) marquis Use one transmitter every 3 months, IDDM, E 10.9 1 Each 3 Blood-Glucose Meter,Continuous (DEXCOM G6 CEMENT MASON HELPER) [facility] [place] Use continuously to monitor glucose, IDDM,E 10.9 1 Each 0 insulin needles, DISPOSABLE, (DROPLET PEN NEEDLE) 31 gauge x 5/16" USE 4 PEN NEEDLES DAILY 400 Each3 lisinopril (ZESTRIL) 20 mg tablet Take 1 tablet by mouth once daily. 90 tablet 3 No current facility-administered medications for this visit. REVIEW OF SYSTEMS Answers submitted by the patient for this visit: Core Review of Systems (Submitted on 04/28/2023) Fever : No Night Sweats: No Recent Unintentional Weight Change: No Nasal Congestion: No Hearing Loss: No Vision Disturbance: No A Cough: No Difficulty Breathing?: No Chest Pain: No Irregular Heart Beat: No Leg Swelling: No Nausea: No Diarrhea: No Black Tarry Stools: No Difficulty Urinating?: No Awaken at Night More Than Once to Urinate?: No Joint Pain or Stiffness: No Muscle Aches: No Leg or Foot Discomfort at Night?: Yes A Rash: No Dizziness: No Headaches: Yes Memory Loss: No Seizures: No PHYSICAL EXAMINATION BP 150/84 Pulse 64 Resp 16 Ht 182.9 cm (6' 0.01") Wt 103.4 kg (228 lb) SpO2 97% BMI 30.92 kg/m2 Physical Exam Constitutional: Appearance: Normal appearance. He is obese. Cardiovascular: Rate and Rhythm: Normal rate and regular rhythm. Pulmonary: Effort: Pulmonary effort is normal. Breath sounds: Normal breath sounds. Skin: General: Skin is warm and dry. Neurological: Mental Status: He is alert and oriented to person, place, and time. Psychiatric: Mood and Affect: Mood normal. Behavior: Behavior normal. DATA Creatinine Date Value Ref Range Status 01/21/2023 1.08 0.73 - 1.22 mg/dL Final Hemoglobin A1C (POCT) (%) Date Value 04/29/2023 6.6 ) No components found for: "URINEALBUMIN" Cholesterol, Total (mg/dL) Date Value 01/21/2023 177 11/11/2020 141 HDL Cholesterol (mg/dL) Date Value 01/21/2023 36 11/11/2020 39 LDL Cholesterol (mg/dL) Date Value 01/21/2023 114 11/11/2020 89 Triglyceride (mg/dL) Date Value 01/21/2023 133 11/11/2020 63 IMPRESSION: Mr. Lance is a 67 year old male here for evaluation of DM Type 1 complicated by hypoglycemia,obesity, hypertension RECOMMENDATIONS: (E10.9) Type 1 diabetes mellitus without complication (HCC) (primary encounter diagnosis) Comment: Glycemic control is improving. Plan: HEMOGLOBIN A1C (POC), lisinopril (ZESTRIL) 20 mg tablet, insulin needles, DISPOSABLE, (DROPLET PEN NEEDLE) 31 gauge x 5/16" Continue current pump settings Work on accurate carb counting. Follow up in 3 months (E10.649) Hypoglycemia due to type 1 diabetes mellitus (HCC) Comment/Plan: Continue Dexcom. Has baqsimi at home (I10) Primary hypertension Comment/Plan: lisinopril (ZESTRIL) 20 mg tablet Increase to 20 mg daily. (E66.9) Obesity, Class I, BMI 30-34.9 Comment/Plan: Body mass index is 30.92 kg/m . (Z96.41) Insulin pump status Comment/Plan: Omnipod 5 and Dexcom G6 CGM Medical Decision Making: Level: 4 - Moderate VESNA Patterson, TERRITORY MANAGER GENERAL SALES, WATCH SUPERVISOR-C, CDE Endocrinology [facility] [id number] Fax: documented in this encounterMount [facility]. [facility]06-27-2023 Instructions* Patient Instructions* Tyrone Gay APRN.CNP - 01/25/2023 11:55 AM EDT Basal rate: 00:00= 0.3 Bolus: Insulin:carb ratio 00:00= 6 1000=12 3 pm=10 Sensitivity 00:00= 35 Blood glucose target 00:00= 120 Insulin duration= 4 hr Start lisinopril 5 mg daily Check blood pressure at home and send in readings in 1-2 wks. Follow up in 3 months VESNA Patterson, TERRITORY MANAGER [employer] SALES, WATCH SUPERVISOR-C, CDE Endocrinology [facility] [facility]/[place] [address] Fax: documented in this encounterMount [facility]. [facility] History of Present illness Narrative* Tyrone Gay APRN.CNP - 01/25/2023 11:30 AM EDT Reason for Consultation: DM Type 1 Referring Physician: SELF HISTORY OF PRESENT ILLNESS Mr. Lance is a 67 year old male presenting here today for a follow up of DM Type 1. As I recall, he was initially diagnosed with diabetes August 2016. LV 09/24/21 +HOSEA antibody in 2018 A1C 7.0 on 01/21/23 History of diabetes, obesity, hypertension Started Omnipod 5 insulin pump 11/26/22 Reports he is doing well with the pump. Current diabetes regimen is as follows: Metformin 1,000 mg BID--no longer taking Glucagon: denies Basal insulin for back up: Toujeo Humalog via Omnipod 5 pump Basal rate: 00:00= 0.3 Bolus: Insulin:carb ratio 00:00= 6 1000=10 3 pm=12 Sensitivity 00:00= 35 Blood glucose target 00:00= 120 Insulin duration= 4 hr Automated mode 98 % Basal/day= 27.8 units Bolus/day=21.2 units Previous diabetes medication: jardiance Glimepiride he is checking his blood glucose with Dexcom G6 CGM he does bring a log book today for review. LDE Blood Sugar Frequency: Dexcom 14 day download (01/12/23 to 01/25/23 ) Target range 66 % High 28% Very high 5% Low 1% Very low 0% BG average 164 Estimated A1C 7.2 CGM active 91.8% BG is stable at goal overnight. His glucose is best overnight. Rises about 10 AM and again 5 pm He tends to run low after lunch and is lowest from 3 pm to 5 pm. Hypoglycemia frequency:occasionally Hypoglycemia awareness: No; not always sensing Regarding symptoms of hypoglycemia, he is not experiencing any symptoms such as polyuria, polydipsia, nocturia or rapid weight loss or blurry vision, Overall, the patient has no acute complaints at this time. PAST MEDICAL HISTORY Diagnosis Date Diabetes (HCC) PAST SURGICAL HISTORY Procedure Laterality Date COLONOSCOPY FLX DX W/COLLJ SPEC WHEN PFRMD 04-03-14 LAPS SURG CHOLECYSTECTOMY W/CHOLANGIOGRAPHY 04-17-14 TONSILLECTOMY & ADENOIDECTOMY <AGE 13 FAMILY HISTORY Problem Relation Age of Onset Hypertension Mother Hypertension Father other (traumatic amputation) Father Cancer Paternal Grandmother Cancer Paternal Grandfather Diabetes Maternal Uncle Diabetes Maternal Aunt Social History Tobacco Use Smoking status: Never Smokeless tobacco: Never Substance Use Topics Alcohol use: No Drug use: No Allergies As of Date: 01/25/2023 Allergen Noted Reaction CEPHALEXIN 03/27/2014 Rash PENICILLINS 03/27/2014 Rash Fully Assessed 01/25/2023 Current Outpatient Medications Medication Sig Dispense Refill insulin lispro (HUMALOG KWIKPEN INSULIN) 100 unit/mL inject subcutaneously PER RATIO: BREAKFAST 1:6, LUNCH 1:10, DINNER1:12 PLUS SLIDING SCALE *MAX DAILY DOSE 60 UNITS*; if insulin pump fails 60 mL 3 insulin lispro (HUMALOG U-100 INSULIN) 100 unit/mL injection Infuse up to 100 units daily via insulin pump 30 mL 11 OMNIPOD 5 G6 INTRO KIT, GEN 5, crtg Inject 1 Each subcutaneously as directed. 1 Each 0 OMNIPOD 5 G6 PODS, GEN 5, crtg Inject 1 Each subcutaneously every 72 hours. (use one pod every 72 hours) 10 Each 11 Blood-Glucose Sensor (DEXCOM G6 SENSOR) marquis Use one sensor every 10 days, IDDM, E 10.9 3 Each 11 Blood-Glucose Transmitter (DEXCOM G6 TRANSMITTER) marquis Use one transmitter every 3 months, IDDM, E 10.9 1 Each 3 Blood-Glucose Meter,Continuous (DEXCOM G6 CEMENT MASON HELPER) misc Use continuously to monitor glucose, IDDM,E 10.9 1 Each 0 glucagon (BAQSIMI) 3 mg/actuation nasal spray Use 1 Hext in the nose as needed. May repeat after 15 minutes using a new device if there is no response. 2 Each 2 lisinopril (ZESTRIL) 5 mg tablet Take 1 tablet by mouth once daily. 90 tablet 3 insulin glargine U-300 conc (TOUJEO SOLOSTAR U-300 INSULIN) 300 unit/mL (1.5 mL) Inject 10 Units subcutaneously every morning. If insulin pump fails 3 Each 3 insulin needles, DISPOSABLE, (DROPLET PEN NEEDLE) 31 gauge x 5/16" USE 4 PEN NEEDLES DAILY 400 Each3 No current facility-administered medications for this visit. REVIEW OF SYSTEMS Review of Systems Respiratory: Negative for difficulty breathing. Cardiovascular: Negative for chest pain. Gastrointestinal: Negative for nausea, vomiting, diarrhea and constipation. PHYSICAL EXAMINATION BP 170/98 Pulse 63 Ht 182.9 cm (6') Wt 104.3 kg (230 lb) SpO2 97% BMI 31.19 kg/m2 Physical Exam Constitutional: Appearance: Normal appearance. He is obese. Cardiovascular: Rate and Rhythm: Normal rate and regular rhythm. Pulmonary: Effort: Pulmonary effort is normal. Breath sounds: Normal breath sounds. Skin: General: Skin is warm and dry. Neurological: Mental Status: He is alert and oriented to person, place, and time. Psychiatric: Mood and Affect: Mood normal. Behavior: Behavior normal. DATA Creatinine Date Value Ref Range Status 01/21/2023 1.08 0.73 - 1.22 mg/dL Final Hemoglobin A1C (%) Date Value 01/21/2023 7.0 Hemoglobin A1C (POCT) (%) Date Value 09/24/2022 6.9 ) No components found for: URINEALBUMIN Cholesterol, Total (mg/dL) Date Value 01/21/2023 177 11/11/2020 141 HDL Cholesterol (mg/dL) Date Value 01/21/2023 36 11/11/2020 39 LDL Cholesterol (mg/dL) Date Value 01/21/2023 114 11/11/2020 89 Triglyceride (mg/dL) Date Value 01/21/2023 133 11/11/2020 63 IMPRESSION: Mr. Lance is a 67 year old male here for evaluation of DM Type 1 complicated by hypoglycemia,obesity, hypertension RECOMMENDATIONS: (E10.9) Type 1 diabetes mellitus without complication (HCC) (primary encounter diagnosis) Comment: Glycemic control is at goal per A1C. Insulin was adjusted to reduce variability Plan: glucagon (BAQSIMI) 3 mg/actuation nasal spray, lisinopril (ZESTRIL) 5 mg tablet Basal rate: 00:00= 0.3 Bolus: Insulin:carb ratio 00:00= 6 1000=12 3 pm=10 Sensitivity 00:00= 35 Blood glucose target 00:00= 120 Insulin duration= 4 hr Follow up in 3 months (E10.649) Hypoglycemia due to type 1 diabetes mellitus (HCC) Comment/Plan: glucagon (BAQSIMI) 3 mg/actuation nasal spray Continue CGM (I10) Primary hypertension Comment: BP continues to be above goal. He is agreeable to try ELDER Plan: lisinopril (ZESTRIL) 5 mg tablet Start lisinopril 5 mg daily Check blood pressure at home and send in readings in 1-2 wks. (E66.9) Obesity, Class I, BMI 30-34.9 Comment: Body mass index is 31.19 kg/m . Plan: Encouraged increase dietary and exercise efforts as able (Z96.41) Insulin pump status Comment/Plan: Omnipod 5 pump and Dexcom CGM Medical Decision Making: Level: 4 - Moderate Tyrone Gay, MSN, TERRITORY MANAGER [employer] SALES, WATCH SUPERVISOR-C, CDE Endocrinology [facility] Building/[address], [address] [place] [address] Fax: documented in this encounterMount [facility]. [facility]05-16-2023 Miscellaneous Notes* Telephone Encounter - Inés Delacruz RN - 12/14/2022 8:45 AM EDT Insulin Pump Post-Training Follow Up Pt started on Omnipod 5 pump on November 26, 2022 Pt states they have successfully changed infusion set: yes Current pump settings verified via online portal or discussion with patient: yes Patient reports hypoglycemia under 70 mg/dL in the last 3 days: yes Patient reports hyperglycemia over 250 mg/dL in the last 3 days: yes Patient concerns: None currently Other issues: Still not connected in [place], pt reports he went through full step by step process again at home and it informed him it was linked. He will plan to customer service to see what additional needs done. Follow-up with provider scheduled: 01/25/[address] [facility]05-03-2023 Miscellaneous Notes* Telephone Encounter - Sharmin Armas Ma - 12/01/2022 10:42 AM EDT Please advise about Metformin. Other questions were addressed. documented in this encounterMount St. [facility] Hospital04-28-2023 History of Present illness Narrative* Inés Delacruz RN - 11/26/2022 2:17 PM EDT Type of visit: In person individual Patient started today on Omnipod 5 insulin pump. Type of training:new to pump If upgrade, patient was previously on the following pump:patient is new to pump Pump programming done today by: patient with educator supervision Insulin information: Last long-acting insulin type, dose, and time: 10 units at 8am today Temp basal rate set today: Activity mode engaged until 6am tomorrow morning Rapid-acting insulin loaded into pump today: Humalog See phone encounter dated 11/16 for pump settings approved by provider and programmed into pump today. Pre-pump training and pump safety information: Patient can demonstrate correct use of a carb ratio:Yes Patient Verbalizes rules regarding when to change infusion set due to hyperglycemia: Yes Patient verbalizes importance of carrying a pump emergency kit:Yes Patient verbalizes back-up plan for pump failure:Yes Handouts provided: Follow-up plan for glucose management given to patient: Follow up by phone with patient This is a non-billable encounter through [employer] but will be billed to the following pump company: [employer]. This visit note will be communicated to the healthcare provider via access to shared medical record. I spent 95 minutes with this patient today. Inés Delacruz RN documented in this encounterMount St. [facility]04-11-2023 Miscellaneous Notes* Telephone Encounter - Ewa Blancas - 11/09/2022 8:21 AM EDT Cancelled December appointment and rescheduled for 01/25/23 * Telephone Encounter - Tyrone aGy APRN.CNP - 11/08/2022 2:15 PM EDT Please cancel March appointment and schedule instead for the end of December with me. Thank you documented in this encounterMount St. [facility]04-04-2023 Miscellaneous Notes* Telephone Encounter - Lety Kuo MA - 11/02/2022 11:18 AM EDT Please advise. documented in this [facility]04-03-2023 Miscellaneous Notes* Telephone Encounter - Jessica Solano MA - 11/01/2022 9:53 AM EDT Requester: Pharmacy Last Visit in Endocrinology: Provider name: Tyrone Gay CNP , Date 09/24/2022 Next Scheduled Appt in Endo: 03/25/2023 Last Refill: 12/15/2021 Number of Refills given: 3 Requested Prescriptions Pending Prescriptions Disp Refills insulin needles, DISPOSABLE, (DROPLET PEN NEEDLE) 31 gauge x 5/16" [Pharmacy Med Name: DROPLET PEN NEEDLE 31GX5/16"] 400 Each 3 Sig: USE 4 PEN NEEDLES DAILY Please review and advise. Jessica Solano MA documented in this encounterMount St. Mary Hospital02-24-2023 Instructions* Patient Instructions* Tyrone Gay APRN.CNP - 09/24/2022 4:12 PM EST Lower toujeo to 10 units in the AM. 2. Humalog Coffee: 8-9 units; increase to 10 units if this continues to be high. Breakfast: 1 unit per 6 grams carbs. Lunch: per sliding scale unless eating then 1:10 ratio. Dinner: 1 unit per 12 grams carbs If Blood Glucose (mg/dL) is < 150 Give 0 units 151-200 Give 2 units 201-250 Give 3 units 251-300 Give 4 units 301-350 Give 5 units >351 Give 6 units 3. Have a copy of your eye exam sent to us. 4. Follow up in 4 months 5. Reduce sodium in the diet and send me blood pressure readings in 2 wks. Tyrone Gay MSN, TERRITORY MANAGER [employer] SALES, WATCH SUPERVISOR-C, CDE Endocrinology [facility] Office [facility]/[address], [address] [place] [address] Fax: documented in this encounterMount [facility]. [facility]02-24-2023 History of Present illness Narrative* Tyrone Gay APRN.CNP - 09/24/2022 3:53 PM EST Reason for Consultation: DM Type 1 Referring Physician: SELF HISTORY OF PRESENT ILLNESS Mr. Lance is a 67 year old male presenting here today for a follow up of DM Type 1. As I recall, he was initially diagnosed with diabetes August 2016. LV 05/28/22 +HOSEA antibody in 2018 A1C today is 6.9 History in addition to diabetes include: obesity, hypertension He was pursuing Omnipod 5 system but decided it was too costly. May consider a new plan during open enrollment. Current diabetes regimen is as follows: Metformin 1,000 mg BID Toujeo 14 units daily at bedtime.--taking only 12 units in the AM Continue metformin. Humalog Coffee in AM 6-9 units Breakfast ratio 1 unit per 6 grams carb Lunch 1 units per 10 grams carbs--if not eating us the sliding scale to correct the sugar if high Dinner 1 units per 12 grams of carbs plus correction If Blood Glucose (mg/dL) is < 150 Give 0 units 151-200 Give 2 units 201-250 Give 3 units 251-300 Give 4 units 301-350 Give 5 units >351 Give 6 units Continues the same routine as below: *takes 5-8 units humalog with is AM coffee at 6 AM *often taking humalog after the meal or forgetting to take. *Eats breakfast between 9-10 AM; usually skips lunch. Dinner between 5-7pm. Not usually having PM snack. Previous diabetes medication: jardiance Glimepiride he is checking his blood glucose freestyle Erica he does bring a log book today for review. LDE Blood Sugar Frequency: Erica 14 day download (09/11/22 to 09/24/22 ) Target range 52% High 28% Very high 11% Low 7 % Very low 2% BG average 165 Estimated A1C 7.3 BG is lowest from 11pm to 5 AM He spikes starting at 6 AM and is highest from 8 AM to 11AM Starts to drop again about noon and may have a low from 2 pm to 7 pm. Hypoglycemia frequency: weekly Hypoglycemia awareness: No; not always sensing Regarding symptoms of hypoglycemia, he is not experiencing any symptoms such as polyuria, polydipsia, nocturia or rapid weight loss or blurry vision, Overall, the patient has no acute complaints at this time. PAST MEDICAL HISTORY Diagnosis Date Diabetes (HCC) PAST SURGICAL HISTORY Procedure Laterality Date COLONOSCOPY FLX DX W/COLLJ SPEC WHEN PFRMD 04-03-14 LAPS SURG CHOLECYSTECTOMY W/CHOLANGIOGRAPHY 04-17-14 TONSILLECTOMY & ADENOIDECTOMY <AGE 13 FAMILY HISTORY Problem Relation Age of Onset Hypertension Mother Hypertension Father other (traumatic amputation) Father Cancer Paternal Grandmother Cancer Paternal Grandfather Diabetes Maternal Uncle Diabetes Maternal Aunt Social History Tobacco Use Smoking status: Never Smokeless tobacco: Never Substance Use Topics Alcohol use: No Drug use: No Allergies As of Date: 09/24/2022 Allergen Noted Reaction CEPHALEXIN 03/27/2014 Rash PENICILLINS 03/27/2014 Rash Fully Assessed 09/24/2022 Current Outpatient Medications Medication Sig Dispense Refill insulin lispro (HUMALOG KWIKPEN INSULIN) 100 unit/mL inject subcutaneously PER RATIO: BREAKFAST 1:6, LUNCH 1:10, DINNER1:12 PLUS SLIDING SCALE *MAX DAILY DOSE 60 UNITS* 60 mL 3 insulin glargine U-300 conc (TOUJEO SOLOSTAR U-300 INSULIN) 300 unit/mL (1.5 mL) Inject 14 Units subcutaneously every morning. 3 Each 3 insulin needles, DISPOSABLE, (DROPLET PEN NEEDLE) 31 gauge x 5/16" Use 4 pen needles daily 400 Each3 metFORMIN (GLUCOPHAGE) 1,000 mg tablet Take 1 tablet by mouth twice daily with meals. 180 tablet 3 flash glucose sensor (FREESTYLE ERICA 2 SENSOR) kit Use one sensor every 14 days, IDDM, E 10.65 6 Each 3 flash glucose scanning reader (FREESTYLE ERICA 2 READER) Use 4x daily and PRN, IDDM, E 10.65 1 Each0 No current facility-administered medications for this visit. REVIEW OF SYSTEMS Review of Systems Respiratory: Negative for difficulty breathing. Cardiovascular: Negative for chest pain. Gastrointestinal: Negative for nausea, vomiting, diarrhea and constipation. PHYSICAL EXAMINATION BP 161/87 Pulse 63 Ht 182 cm (5' 11.65") Wt 103 kg (227 lb) SpO2 99% BMI 31.08 kg/m2 *159/89 at home last night Physical Exam Constitutional: Appearance: Normal appearance. He is obese. Cardiovascular: Rate and Rhythm: Normal rate and regular rhythm. Pulmonary: Effort: Pulmonary effort is normal. Breath sounds: Normal breath sounds. Skin: General: Skin is warm and dry. Neurological: Mental Status: He is alert and oriented to person, place, and time. Psychiatric: Mood and Affect: Mood normal. Behavior: Behavior normal. DATA Creatinine Date Value Ref Range Status 12/08/2021 0.90 0.73 - 1.22 mg/dL Final Hemoglobin A1C (POCT) (%) Date Value 09/24/2022 6.9 ) No components found for: URINEALBUMIN Cholesterol, Total (mg/dL) Date Value 12/08/2021 149 11/11/2020 141 HDL Cholesterol (mg/dL) Date Value 12/08/2021 40 11/11/2020 39 LDL Cholesterol (mg/dL) Date Value 12/08/2021 97 11/11/2020 89 Triglyceride (mg/dL) Date Value 12/08/2021 61 11/11/2020 63 IMPRESSION: Mr. Lance is a 67 year old male here for evaluation of DM Type 1 complicated by hypoglycemia,obesity, hypertension RECOMMENDATIONS: (E10.9) Type 1 diabetes mellitus without complication (HCC) (primary encounter diagnosis) Comment: Glycemic control is improving per A1C but remains variable. Insulin adjusted in AM. He preferred to keep daytime doses the same for now Plan: HEMOGLOBIN A1C (POC), insulin glargine U-300 conc (TOUJEO SOLOSTAR U-300 INSULIN) 300 unit/mL (1.5 mL), metFORMIN (GLUCOPHAGE) 1,000 mg tablet, flash glucose sensor (FREESTYLE ERICA 2 SENSOR) kit, COMP METABOLIC PANEL, ALBUMIN/CREAT RATIO RND UR, LIPID PANEL BASIC, HGB A1C Lower toujeo to 10 units in the AM. Humalog Coffee: 8-9 units; increase to 10 units if this continues to be high. Breakfast: 1 unit per 6 grams carbs. Lunch: per sliding scale unless eating then 1:10 ratio. Dinner: 1 unit per 12 grams carbs If Blood Glucose (mg/dL) is < 150 Give 0 units 151-200 Give 2 units 201-250 Give 3 units 251-300 Give 4 units 301-350 Give 5 units >351 Give 6 units Have a copy of your eye exam sent to us. Follow up in 4 months Reduce sodium in the diet and send me blood pressure readings in 2 wks. (I10) Primary hypertension Comment/Plan: BP continues to run high in office and at home. Recommend ELDER which he declines. Reduce sodium in the diet and send me BP readings in 2 wks for reconsideration of medication. (E16.2) Hypoglycemia Comment/Plan: continue Erica (E66.9) Obesity, Class I, BMI 30-34.9 Comment: Body mass index is 31.08 kg/m . Plan: Encouraged increase dietary and exercise efforts as able I spent a total of 30 minutes on the date of the service which included preparing to see the patient, [id number] patient care, completing clinical documentation, obtaining and/or reviewing separately obtained history, performing a medically appropriate examination, counseling and educating the pat ient/family/caregiver, ordering medications, tests, or procedures, and communicating results to thepatient/family/caregiver. Tyrone Gay, MSN, TERRITORY MANAGER [employer] SALES, WATCH SUPERVISOR-C, CDE Endocrinology [facility]/[address] [place], [place] [address] Fax: documented in this encounterMount [address] [facility]11-14-2022 Miscellaneous Notes* Telephone Encounter - Sharmin Armas Ma - 06/14/2022 10:21 AM EST Form faxed, Transmission ok CLOSED * Telephone Encounter - Tyrone Gay APRN.CNP - 06/11/2022 4:45 PM EST Form signed. Thank you * Telephone Encounter - Jessica Solano MA - 06/11/2022 3:48 PM EST Type of letter/form/fax request: CGM with Physician's order Form received from: [facility] Medical Placed on Provider (CNP. Gay)for completion Completed form needs to be faxed to [phone] [facility]10-28-2022 Instructions* Patient Instructions* Tyrone Gay APRN.CNP - 05/28/2022 3:58 PM EDT Toujeo 14 units daily at bedtime. 2. Continue metformin. 3. Humalog Coffee in AM 6-9 units Breakfast ratio 1 unit per 6 grams carb Lunch 1:10--if not eating us the sliding scale to correct the sugar if high Dinner 1 units per 12 grams of carbs If Blood Glucose (mg/dL) is < 150 Give 0 units 151-200 Give 2 units 201-250 Give 3 units 251-300 Give 4 units 301-350 Give 5 units >351 Give 6 units 4. Follow units up 3 months 5. Check blood pressure at home this week and report if >140/90 6. Have a copy of your eye exam sent to us. Tyrone Gay, MSN, TERRITORY MANAGER [employer] SALES, WATCH SUPERVISOR-C, CDE Endocrinology [facility] Office [facility]/[address] [place] [address] Fax: documented in this encounterMount [facility]. [facility]10-28-2022 Procedure note* Sharmin Armas Ma - 05/28/2022 3:56 PM EDTProcedure(s): EXTERNAL CEMENT MASON HELPER, CGM SYS Images from the original note were not included. documented in this encounterMount St. [facility] Hospital10-28-2022 History of Present illness Narrative* Tyrone Gay APRN.CNP - 05/28/2022 3:45 PM EDT Reason for Consultation: DM Type 1 Referring Physician: SELF HISTORY OF PRESENT ILLNESS Mr. Lance is a 66 year old male presenting here today for a follow up of DM Type 1. As I recall, he was initially diagnosed with diabetes August 2016. LV 11/25/21 +HOSEA antibody in 2018 A1C today is 7.2 History in addition to diabetes include: obesity He was pursuing Omnipod 5 system but decided it was too costly. May consider a new plan during open enrollment. Current diabetes regimen is as follows: Metformin 1,000 mg BID toujeo 12 units at bedtime Humalog: ratio 1:8 breakfast; 1:10 lunch, 1:10 dinner plus SS Continues the same routine as below: *takes 5-8 units humalog with is AM coffee at 6 AM *often taking humalog after the meal or forgetting to take. *Eats breakfast between 9-10 AM; usually skips lunch. Dinner between 5-7pm. Not usually having PM snack. Previous diabetes medication: jardiance Glimepiride he is checking his blood glucose freestyle Erica he does bring a log book today for review. LDE Blood Sugar Frequency: Erica 14 day download (05/15/22 to 05/28/22) Target range 46% High 25% Very high 23% Low 4% Very low 2% BG average 190 Estimated A1C 7.9% FG starts to rise at 1 AM and remains high until 1 pm He drops low after dinner *see procedure note for details Hypoglycemia frequency: occasionally Hypoglycemia awareness: No; not always sensing Regarding symptoms of hypoglycemia, he is not experiencing any symptoms such as polyuria, polydipsia, nocturia or rapid weight loss or blurry vision, Overall, the patient has no acute complaints at this time. PAST MEDICAL HISTORY Diagnosis Date Diabetes (HCC) PAST SURGICAL HISTORY Procedure Laterality Date COLONOSCOPY FLX DX W/COLLJ SPEC WHEN PFRMD 04-03-14 LAPS SURG CHOLECYSTECTOMY W/CHOLANGIOGRAPHY 04-17-14 TONSILLECTOMY & ADENOIDECTOMY <AGE 13 FAMILY HISTORY Problem Relation Age of Onset Hypertension Mother Hypertension Father other (traumatic amputation) Father Cancer Paternal Grandmother Cancer Paternal Grandfather Diabetes Maternal Uncle Diabetes Maternal Aunt Social History Tobacco Use Smoking status: Never Smokeless tobacco: Never Substance Use Topics Alcohol use: No Drug use: No Allergies As of Date: 05/28/2022 Allergen Noted Reaction CEPHALEXIN 03/27/2014 Rash PENICILLINS 03/27/2014 Rash Fully Assessed 05/28/2022 Current Outpatient Medications Medication Sig Dispense Refill insulin needles, DISPOSABLE, (DROPLET PEN NEEDLE) 31 gauge x 5/16" Use 4 pen needles daily 400 Each3 insulin lispro (HUMALOG KWIKPEN INSULIN) 100 unit/mL inject subcutaneously PER RATIO: BREAKFAST 1:8, LUNCH 1:10, DINNER1:10 PLUS SLIDING SCALE *MAX DAILY DOSE 50 UNITS* 45 mL 3 insulin glargine U-300 conc (TOUJEO SOLOSTAR U-300 INSULIN) 300 unit/mL (1.5 mL) Inject 12 Units subcutaneously every morning. 3 Pen 3 metFORMIN (GLUCOPHAGE) 1,000 mg tablet Take 1 tablet by mouth twice daily with meals. 180 tablet 3 flash glucose sensor (FREESTYLE ERICA 2 SENSOR) kit Use one sensor every 14 days, IDDM, E 10.65 6 Each 3 flash glucose scanning reader (FREESTYLE ERICA 2 READER) Use 4x daily and PRN, IDDM, E 10.65 1 Each0 No current facility-administered medications for this visit. REVIEW OF SYSTEMS Answers submitted by the patient for this visit: Endocrine Review of Systems (Submitted on 05/26/2022) Skin Color Changes: No Post-Nasal Drip: No Thyroid Pain (lower neck): No Trouble Swallowing: No Vision Disturbance: No Chest Pain: No Leg Swelling: No Blood Clots?: No Leg Pain while walking?: No Difficulty Breathing?: No Heartburn: No Nausea: No Vomiting?: No Diarrhea: No Constipation: No Abdominal Pain: No Bone Pain?: No Muscle Aches: No Muscle Weakness: No Joint Pain or Stiffness: No Headaches: No Dizziness: No Numbness?: No Urgency to Urinate?: No Increased Urination?: No Slow or Small Urine Stream?: No Flushing?: No Hot Flashes?: No Increased Thirst: No Change in Body Hair?: No Cold Intolerance: No Heat Intolerance?: No Core Review of Systems (Submitted on 05/26/2022) Vision Disturbance: No Chest Pain: No Leg Swelling: No Difficulty Breathing?: No Nausea: No Diarrhea: No Muscle Aches: No Joint Pain or Stiffness: No Headaches: No Dizziness: No Fever : No Nasal Congestion: No Hearing Loss: No A Cough: No Irregular Heart Beat: No Black Tarry Stools: No Difficulty Urinating?: No Awaken at Night More Than Once to Urinate?: No Leg or Foot Discomfort at Night?: No A Rash: No Memory Loss: No Seizures: No PHYSICAL EXAMINATION BP 163/81 (BP Site: Left Arm, BP Position: Sitting, BP Cuff Size: Regular Adult) Pulse 61 Wt 101.1 kg (222 lb 12.8 oz) SpO2 97% BMI 30.85 kg/m2 Physical Exam Constitutional: Appearance: Normal appearance. Cardiovascular: Rate and Rhythm: Normal rate and regular rhythm. Pulmonary: Effort: Pulmonary effort is normal. Breath sounds: Normal breath sounds. Skin: General: Skin is warm and dry. Neurological: Mental Status: He is alert and oriented to person, place, and time. Psychiatric: Mood and Affect: Mood normal. Behavior: Behavior normal. DATA Creatinine Date Value Ref Range Status 12/08/2021 0.90 0.73 - 1.22 mg/dL Final Hemoglobin A1C (POCT) (%) Date Value 11/25/2021 6.6 ) No components found for: URINEALBUMIN Cholesterol, Total (mg/dL) Date Value 12/08/2021 149 11/11/2020 141 HDL Cholesterol (mg/dL) Date Value 12/08/2021 40 11/11/2020 39 LDL Cholesterol (mg/dL) Date Value 12/08/2021 97 11/11/2020 89 Triglyceride (mg/dL) Date Value 12/08/2021 61 11/11/2020 63 IMPRESSION: Mr. Lance is a 66 year old male here for evaluation of DM Type 1 complicated by hypoglycemia,obesity RECOMMENDATIONS: (E10.9) Type 1 diabetes mellitus without complication (HCC) (primary encounter diagnosis) Comment: glycemic control is trending higher. Insulin adjusted. He decided against an insulin pump for now secondary to cost. Plan: insulin lispro (HUMALOG KWIKPEN INSULIN) 100 unit/mL, insulin glargine U-300 conc (TOUJEO SOLOSTAR U-300 INSULIN) 300 unit/mL (1.5 mL) Toujeo 14 units daily at bedtime. Continue metformin. Humalog Coffee in AM 6-9 units Breakfast ratio 1 unit per 6 grams carb Lunch 1:10--if not eating us the sliding scale to correct the sugar if high Dinner 1 units per 12 grams of carbs If Blood Glucose (mg/dL) is < 150 Give 0 units 151-200 Give 2 units 201-250 Give 3 units 251-300 Give 4 units 301-350 Give 5 units >351 Give 6 units Follow units up 3 months Check blood pressure at home this week and report if >140/90 Have a copy of your eye exam sent to us. (E16.2) Hypoglycemia Comment/Plan:Insulin adjusted; continue Erica (E66.9, Z68.30) Class 1 obesity with serious comorbidity and body mass index (BMI) of 30.0 to 30.9 in adult, unspecified obesity type Comment: Body mass index is 30.85 kg/m . Plan: Encouraged increase dietary and exercise efforts as able Medical Decision Making: Level: 4 - Moderate Tyrone Gay, MSN, TERRITORY MANAGER [employer], WATCH SUPERVISOR-C, CDE Endocrinology [facility]/[address], [address] [place], [place] [address] Fax: documented in [facility] Miscellaneous Notes* Telephone Encounter - Sharmin Armas Ma - 04/27/2022 8:33 AM EDT Form Faxed to [employer] at [phone], Transmission ok Closed * Telephone Encounter - Tyrone Gay APRN.CNP - 04/27/2022 7:42 AM EDT Form signed. Thank you * Telephone Encounter - Sharmin Armas Ma - 04/26/2022 11:53 AM EDT Form on docs desk/basket for review from [employer]. Please review and sign. Needs to be faxed to [phone]. documented in [facility]2022 Miscellaneous Notes* Telephone Encounter - Dottie Velasco RN - 04/08/2022 8:10 AM EDT Message sent to patient. Closed. documented in this [facility]20[facility] History of Present illness Narrative* Inés Delacruz RN - 03/05/2022 3:51 PM EDT DIABETES CARE AND EDUCATION VISIT Location: [place] Type of visit: In person individual PATIENT'S MAIN CONCERN TODAY: Learn more about pumps Support person present for education today: spouse Cognitive ability: Alert and oriented Motivation to learn: Interested Learning barriers identified by educator: none Method of instruction: written, verbal, demonstration and computer DIABETES FINDINGS: Monitoring: Libre2 currently in used Meal Planning: patient is already carb counting Medications: pt states they are currently taking approximately 50 units of insulin per day tdd Reviewed basic pump options with patient HANDOUTS: Brochures for Omnipod, Tandem and Dexcom given to patient POSSIBLE FUTURE TOPICS: 1. DIABETES CARE AND EDUCATION PLAN: Individual follow-up Time Spent (Minutes): 45 This visit note will be communicated to the healthcare provider via access to shared medical record. SIGNATURE: Inés Delacruz RN PATIENT NAME: [place] Lance DATE: March 05, 2022 TIME: 3:51 PM PAGER: documented in this encounterMount [facility]. [facility]-17-2022 Miscellaneous Notes* Telephone Encounter - Jojo Driscoll LPN - 12/15/2021 2:55 PM EDT Requester: Patient Last Visit in Endocrinology: Provider name: Tyrone Gay CNP , Date 11/25/2021 [place] Next Scheduled Appt in Endo: 05/28/2022 [place] Last Refill: 11/23/21 Number of Refills given: 3 Has been sent to pharmacy unable to locate Pending Prescriptions Disp Refills PEN NEEDLE, DIABETIC 31 GAUGE X 5/16" 400 Each 3 Sig: use 1 PEN NEEDLE to inject MEDICATION subcutaneously four times a day SEFERINO: No Please review and advise. Jojo Driscoll LPN documented in this encounterMount [facility]. [facility]04-27-2022 Instructions* Patient Instructions* Tyrone Gay APRN.JOSSY - 11/25/2021 4:25 PM EDT 1. Lower toujeo to 12 units and take in the AM. 2. Continue metformin and humalog 3. Labs this week or next. 4. Follow up in 6 months . Tyrone Gay, MSN, TERRITORY MANAGER [employer], WATCH SUPERVISOR-C, CDE Endocrinology [facility]/[address], [address] [place] [address] Fax: documented in this encounter[facility]04-27-2022 History of Present illness Narrative* Tyrone Gay APRN.CNP - 11/25/2021 3:45 PM EDT Reason for Consultation: DM Type 1 Referring Physician: SELF HISTORY OF PRESENT ILLNESS Mr. Lance is a 66 year old male presenting here today for a follow up of DM Type 1. As I recall, he was initially diagnosed with diabetes August 2016. LV 05/20/21 +HOSEA antibody in 2018 A1C today is 6.6 History in addition to diabetes include: None Exacerbating factors include: obesity Current diabetes regimen is as follows: Metformin 1,000 mg BID toujeo 15 units at bedtime Humalog: ratio 1:8 breakfast; 1:10 lunch, 1:10 dinner plus SS Continues the same routine as below: *takes 5-8 units humalog with is AM coffee at 6 AM *often taking humalog after the meal or forgetting to take. *Eats breakfast between 9-10 AM; usually skips lunch. Dinner between 5-7pm. Not usually having PM snack. Previous diabetes medication: jardiance Glimepiride he is checking his blood glucose 4+ times daily. Using [employer] Erica.(14 day) he does bring a log book today for review. LDE Blood Sugar Frequency: Erica 14 day download (11/12/21 to 09/27/21) Target range 53% High 24% Very high 12% Low 9% Very low 2% BG average 159 Estimated A1C 7.1 BG often low overnight. He is spiking after coffee and especially after breakfast. If he takes humalog late he tends to drop low in the afternoon. Also may be stacking effect with insulin for coffee and then breakfast Hypoglycemia frequency: multiple times per week. Hypoglycemia awareness: No; not always sensing Regarding symptoms of hypoglycemia, he is not experiencing any symptoms such as polyuria, polydipsia, nocturia or rapid weight loss or blurry vision, Overall, the patient has no acute complaints at this time. PAST MEDICAL HISTORY Diagnosis Date Diabetes (HCC) PAST SURGICAL HISTORY Procedure Laterality Date COLONOSCOPY FLX DX W/COLLJ SPEC WHEN PFRMD 04-03-14 LAPS SURG CHOLECYSTECTOMY W/CHOLANGIOGRAPHY 04-17-14 TONSILLECTOMY & ADENOIDECTOMY <AGE 13 FAMILY HISTORY Problem Relation Age of Onset Hypertension Mother Hypertension Father other (traumatic amputation) Father Cancer Paternal Grandmother Cancer Paternal Grandfather Diabetes Maternal Uncle Diabetes Maternal Aunt Social History Tobacco Use Smoking status: Never Smoker Smokeless tobacco: Never Used Substance Use Topics Alcohol use: No Drug use: No Allergies As of Date: 11/25/2021 Allergen Noted Reaction CEPHALEXIN 03/27/2014 Rash PENICILLINS 03/27/2014 Rash Fully Assessed 11/25/2021 Current Outpatient Medications Medication Sig Dispense Refill insulin lispro (HUMALOG KWIKPEN INSULIN) 100 unit/mL inject subcutaneously PER RATIO: BREAKFAST 1:8, LUNCH 1:10, DINNER1:10 PLUS SLIDING SCALE *MAX DAILY DOSE 50 UNITS* 45 mL 3 insulin glargine U-300 conc (TOUJEO SOLOSTAR U-300 INSULIN) 300 unit/mL (1.5 mL) Inject 12 Units subcutaneously every morning. 3 Pen 3 metFORMIN (GLUCOPHAGE) 1,000 mg tablet Take 1 tablet by mouth twice daily with meals. 180 tablet 3 insulin needles, DISPOSABLE, (DROPLET PEN NEEDLE) 31 gauge x 5/16" use 1 PEN NEEDLE to inject MEDICATION subcutaneously four times a day 400 Each 3 flash glucose sensor (FREESTYLE ERICA 2 SENSOR) kit Use one sensor every 14 days, IDDM, E 10.65 6 Each 3 flash glucose scanning reader (FREESTYLE ERICA 2 READER) Use 4x daily and PRN, IDDM, E 10.65 1 Each0 No current facility-administered medications for this visit. REVIEW OF SYSTEMS Answers for HPI/ROS submitted by the patient on 11/24/2021 Fatigue: Yes Skin Color Changes: No Post-Nasal Drip: No Thyroid Pain (lower neck): No Trouble Swallowing: No Blood Clots?: No Leg Pain while walking?: No Heartburn: No Vomiting?: No Constipation: No Abdominal Pain: No Bone Pain?: No Muscle Weakness: No Numbness?: No Urgency to Urinate?: No Increased Urination?: No Slow or Small Urine Stream?: No Flushing?: No Hot Flashes?: No Increased Thirst: No Change in Body Hair?: No Cold Intolerance: No Heat Intolerance?: No Night Sweats: Yes Recent Unintentional Weight Change: No Vision Disturbance: No Chest Pain: No Leg Swelling: No Difficulty Breathing?: No Nausea: No Diarrhea: No Muscle Aches: No Joint Pain or Stiffness: No Headaches: No Dizziness: No Fever : No Nasal Congestion: No Hearing Loss: No A Cough: No Irregular Heart Beat: No Black Tarry Stools: No Difficulty Urinating?: No Awaken at Night More Than Once to Urinate?: No Leg or Foot Discomfort at Night?: No A Rash: No Memory Loss: No Seizures: No PHYSICAL EXAMINATION BP 140/80 Pulse 61 Ht 181 cm (5' 11.26") Wt 100.2 kg (220 lb 12.8 oz) SpO2 96% BMI 30.57 kg/m2 Physical Exam Constitutional: Appearance: Normal appearance. Cardiovascular: Rate and Rhythm: Normal rate and regular rhythm. Pulmonary: Effort: Pulmonary effort is normal. Breath sounds: Normal breath sounds. Skin: General: Skin is warm and dry. Neurological: Mental Status: He is alert and oriented to person, place, and time. Psychiatric: Mood and Affect: Mood normal. Behavior: Behavior normal. DATA Creatinine Date Value Ref Range Status 11/11/2020 0.86 0.73 - 1.22 mg/dL Final Hemoglobin A1C (POCT) (%) Date Value 11/25/2021 6.6 ) No components found for: URINEALBUMIN Cholesterol, Total (mg/dL) Date Value 11/11/2020 141 HDL Cholesterol (mg/dL) Date Value 11/11/2020 39 LDL Cholesterol (mg/dL) Date Value 11/11/2020 89 Triglyceride (mg/dL) Date Value 11/11/2020 63 IMPRESSION: Mr. Lance is a 66 year old male here for evaluation of DM Type 1 complicated by hypoglycemia,obesity RECOMMENDATIONS: (E10.9) Type 1 diabetes mellitus without complication (HCC) (primary encounter diagnosis) Comment: Glycemic control is at goal per A1C however he is variable. Insulin adjusted. Advised he needs to take humalog at the start of the meal. Consider combining coffee and breakfast so the are atthe same time and only taking one dose of insulin. Plan: HEMOGLOBIN A1C (POC), insulin lispro (HUMALOG KWIKPEN INSULIN) 100 unit/mL, insulin glargine U-300 conc (TOUJEO SOLOSTAR U-300 INSULIN) 300 unit/mL (1.5 mL), metFORMIN (GLUCOPHAGE) 1,000 mg tablet Lower toujeo to 12 units and take in the AM. Continue metformin and humalog Labs this week or next. Follow up in 6 months . (E16.2) Hypoglycemia Comment/Plan:Insulin adjusted; continue Erica (E66.9, Z68.30) Class 1 obesity with serious comorbidity and body mass index (BMI) of 30.0 to 30.9 in adult, unspecified obesity type Comment: Body mass index is 30.57 kg/m . Plan: Encouraged increase dietary and exercise efforts as able I spent a total of 30 minutes on the date of the service which included preparing to see the patient, [id number] patient care, completing clinical documentation, obtaining and/or reviewing separately obtained history, performing a medically appropriate examination, counseling and educating the pat ient/family/caregiver, ordering medications, tests, or procedures and communicating results to the patient/family/caregiver. VESNA Patterson, TERRITORY MANAGER [employer], WATCH SUPERVISOR-C, CDE Endocrinology [facility]/[address] [place] [address] Fax: documented in this encounter[facility]04-22-2022 Miscellaneous Notes* Telephone Encounter - Jojo Driscoll LPN - 11/20/2021 9:55 AM EDT Requester: Pharmacy Last Visit in Endocrinology: Provider name: Tyrone Gay CNP , Date 05/20/2021 Next Scheduled Appt in Endo: 11/25/2021 Last Refill: 11/11/20 Number of Refills given: 3 Pending Prescriptions Disp Refills PEN NEEDLE, DIABETIC 31 GAUGE X 5/16" 400 Each 3 Sig: use 1 PEN NEEDLE to inject MEDICATION subcutaneously four times a day SEFERINO: No Please review and advise. Jojo Driscoll LPN [facility] Diagnosis Type 1 diabetes mellitus without complication (HCC) Type I (juvenile type) diabetes mellitus without mention of complication, not stated as uncontrolled documented in [facility]* Diagnosis Type 1 diabetes mellitus without complication (HCC)- Primary Type I (juvenile type) diabetes mellitus without mention of complication, not stated as uncontrolled Hypoglycemia Hypoglycemia, unspecified Class 1 obesity with serious comorbidity and body mass index (BMI) of 30.0 to 30.9 in adult, unspecified obesity type documented in this [facility]* Diagnosis Type 1 diabetes mellitus without complication (HCC) Type I (juvenile type) diabetes mellitus without mention of complication, not stated as uncontrolled documented in this encounter [facility]* Diagnosis Type 1 diabetes mellitus without complication (HCC) Type I (juvenile type) diabetes mellitus without mention of complication, not stated as uncontrolled documented in this encounter [facility]* Diagnosis Type 1 diabetes mellitus without complication (HCC)- Primary Type I (juvenile type) diabetes mellitus without mention of complication, not stated as uncontrolled Hypoglycemia Hypoglycemia, unspecified Class 1 obesity with serious comorbidity and body mass index (BMI) of 30.0 to 30.9 in adult, unspecified obesity type documented in this encounter [facility]* Diagnosis Type 1 diabetes mellitus without complication (HCC)- Primary Type I (juvenile type) diabetes mellitus without mention of complication, not stated as uncontrolled documented in this encounter [facility]* Diagnosis Type 1 diabetes mellitus without complication (HCC)- Primary Type I (juvenile type) diabetes mellitus without mention of complication, not stated as uncontrolled Hypoglycemia Hypoglycemia, unspecified Primary hypertension Unspecified essential hypertension Obesity, Class I, BMI 30-34.9 Obesity, unspecified documented in this encounter [facility]* Diagnosis Type 1 diabetes mellitus without complication (HCC) Type I (juvenile type) diabetes mellitus without mention of complication, not stated as uncontrolled documented in this encounter [facility]* Diagnosis Type 1 diabetes mellitus without complication (HCC) Type I (juvenile type) diabetes mellitus without mention of complication, not stated as uncontrolled documented in this encounter [facility]* Diagnosis Type 1 diabetes mellitus without complication (HCC)- Primary Type I (juvenile type) diabetes mellitus without mention of complication, not stated as uncontrolled Hypoglycemia due to type 1 diabetes mellitus (HCC) Primary hypertension Unspecified essential hypertension Obesity, Class I, BMI 30-34.9 Obesity, unspecified Insulin pump status documented in this encounter [facility]* Diagnosis Type 1 diabetes mellitus without complication (HCC)- Primary Type I (juvenile type) diabetes mellitus without mention of complication, not stated as uncontrolled Hypoglycemia due to type 1 diabetes mellitus (HCC) Primary hypertension Unspecified essential hypertension Obesity, Class I, BMI 30-34.9 Obesity, unspecified Insulin pump status documented in this encounter [facility]* Diagnosis Cellulitis of skin- Primary Cellulitis and abscess of unspecified site documented in this encounter [facility]* Diagnosis Wound of right lower extremity, initial encounter- Primary documented in this encounter [facility]* Diagnosis Onset Date Resolution Status Nonhealing nonsurgical wound acute Traumatic skin ulcer with fat layer exposed acute [facility] Work Phone: Evaluation note* Diagnosis Onset Date Resolution Status Nonhealing nonsurgical wound acute Traumatic skin ulcer with fat layer exposed acute Nonhealing nonsurgical wound acute Traumatic skin ulcer with fat layer exposed acute [facility] Work Phone: Evaluation note* Diagnosis Type 1 diabetes mellitus with hypoglycemia and without coma (HCC)- Primary Type I (juvenile type) diabetes mellitus with other specified manifestations, not stated as uncontrolled Primary hypertension Unspecified essential hypertension Obesity, Class I, BMI 30-34.9 Obesity, unspecified Insulin pump status [facility]* Diagnosis Primary hypertension Unspecified essential hypertension documented in this encounter [facility]* Diagnosis Type 1 diabetes mellitus with hypoglycemia and without coma (HCC) Type I (juvenile type) diabetes mellitus with other specified manifestations, not stated as uncontrolled documented in this encounter [facility]* Diagnosis Type 1 diabetes mellitus with hypoglycemia and without coma (HCC)- Primary Type I (juvenile type) diabetes mellitus with other specified manifestations, not stated as uncontrolled Primary hypertension Unspecified essential hypertension Obesity, Class I, BMI 30-34.9 Obesity, unspecified Insulin pump status Encounter for screening for malignant neoplasm of prostate Special screening for malignant neoplasm of prostate [facility] Diagnosis Type 1 diabetes mellitus with hypoglycemia and without coma (HCC)- Primary Type I (juvenile type) diabetes mellitus with other specified manifestations, not stated as uncontrolled Primary hypertension Unspecified essential hypertension Obesity, Class I, BMI 30-34.9 Obesity, unspecified Insulin pump status [facility] this [facility] Diagnosis Onset Date Resolution Status Nonhealing nonsurgical wound acute Traumatic skin ulcer with fat layer exposed acute Nonhealing nonsurgical wound acute Traumatic skin ulcer with fat layer exposed acute Nonhealing nonsurgical wound acute Traumatic skin ulcer with fat layer exposed acute [facility] Work Phone: Evaluation note* Diagnosis Type 1 diabetes mellitus with hypoglycemia and without coma (HCC)- Primary Type I (juvenile type) diabetes mellitus with other specified manifestations, not stated as uncontrolled Primary hypertension Unspecified essential hypertension Obesity, Class I, BMI 30-34.9 Obesity, unspecified Insulin pump status [facility] this [facility] Diagnosis Type 1 diabetes mellitus with hypoglycemia and without coma (HCC) Type I (juvenile type) diabetes mellitus with other specified manifestations, not stated as uncontrolled [facility] this [facility]* Diagnosis Type 1 diabetes mellitus with hypoglycemia and without coma (HCC)- Primary Type I (juvenile type) diabetes mellitus with other specified manifestations, not stated as uncontrolled Primary hypertension Unspecified essential hypertension Obesity, Class I, BMI 30-34.9 Obesity, unspecified Encounter for screening for malignant neoplasm of prostate Special screening for malignant neoplasm of prostate documented [facility] Reason for Referral Specialty Diagnoses / Procedures Referred By Mati t Referred To Contact Diagnoses Type 1 diabetes mellitus without complication (HCC) Procedures CONSULT TO DIABETES EDUCATION OFFICE/OUTPATIENT [facility] 60-74 MINUTES Tyrone Gay APRN.LEI SELLER [phone] [address] Referral ID Status Reason Start Date Expiration Date Visits Requested Visits Authorized [id number] Authorized PCP Requested Referral 08/23/2022 08/23/2023 1 1 Chief Complaint and Reason for Visit Chief Complaint Wound Care Reason for Visit Nonhealing nonsurgic al wound Traumatic skin ulcer with fat layer exposed Chief Complaint Wound Care wound wound Reason for Visit Nonhealing nonsurgic al wound Traumatic skin ulcer with fat layer exposed Nonhealing nonsurgical wound Traumatic skin ulcer with fat layer exposed Chief Complaint Wound Care wound wound wound wound Reason for Visit Nonhealing nonsurgic al wound Traumatic skin ulcer with fat layer exposed Nonhealing nonsurgical wound Traumatic skin ulcer with fat layer exposed Nonhealing nonsurgical wound Traumatic skin ulcer with fat layer exposed Advance Directives No Advanced Directives Records Found Advance Directive Response Recorded Date/ Time Living Will Yes February 23, 2017 12:48pm Power of Administration Intern Yes February 23 12:48pm Summary Purpose Family History No Family History Records FoundNo Family History Records Found Additional Source Comments Source Comments (unrecognize d section and content) In the event this informatio n is protected by the Federal Confidentiality of Alcohol and Drug Abuse Patient Records regulations: The Federal rules restrict any use of the information to criminally investigate or prosecute any alcohol or drug abuse patient.[facility] the event this information is protected by the Federal Confidentiality of Alcohol and Drug Abuse Patient Records regulations: The Federal rules restrict any use of the information to criminally investigate or prosecute any alcohol or drug abuse patient.[facility] HospitalIn the event this information is protected by the Federal Confidentiality of Alcohol and Drug Abuse Patient Records regulations: The Federal rules restrict any use of the information to criminally investigate or prosecute any alcohol or drug abuse patient.[facility] HospitalIn the event this information is protected by the Federal Confidentiality of Alcohol and Drug Abuse Patient Records regulations: The Federal rules restrict any use of the information to criminally investigate or prosecute any alcohol or drug abuse patient.[facility] the event this information is protected by the Federal Confidentiality of Alcohol and Drug Abuse Patient Records regulations: The Federal rules restrict any use of the information to criminally investigate or prosecute any alcohol or drug abuse patient.[facility] HospitalIn the event this information is protected by the Federal Confidentiality of Alcohol and Drug Abuse Patient Records regulations: The Federal rules restrict any use of the information to criminally investigate or prosecute any alcohol or drug abuse patient.[facility] HospitalIn the event this information is protected by the Federal Confidentiality of Alcohol and Drug Abuse Patient Records regulations: The Federal rules restrict any use of the information to criminally investigate or prosecute any alcohol or drug abuse patient.[facility] HospitalIn the event this information is protected by the Federal Confidentiality of Alcohol and Drug Abuse Patient Records regulations: The Federal rules restrict any use of the information to criminally investigate or prosecute any alcohol or drug abuse patient.[facility] HospitalIn the event this information is protected by the Federal Confidentiality of Alcohol and Drug Abuse Patient Records regulations: The Federal rules restrict any use of the information to criminally investigate or prosecute any alcohol or drug abuse patient.[facility] HospitalIn the event this information is protected by the Federal Confidentiality of Alcohol and Drug Abuse Patient Records regulations: The Federal rules restrict any use of the information to criminally investigate or prosecute any alcohol or drug abuse patient.[facility] HospitalIn the event this information is protected by the Federal Confidentiality of Alcohol and Drug Abuse Patient Records regulations: The Federal rules restrict any use of the information to criminally investigate or prosecute any alcohol or drug abuse patient.[facility] HospitalIn the event this information is protected by the Federal Confidentiality of Alcohol and Drug Abuse Patient Records regulations: The Federal rules restrict any use of the information to criminally investigate or prosecute any alcohol or drug abuse patient.[facility] HospitalIn the event this information is protected by the Federal Confidentiality of Alcohol and Drug Abuse Patient Records regulations: The Federal rules restrict any use of the information to criminally investigate or prosecute any alcohol or drug abuse patient.[facility] HospitalIn the event this information is protected by the Federal Confidentiality of Alcohol and Drug Abuse Patient Records regulations: The Federal rules restrict any use of the information to criminally investigate or prosecute any alcohol or drug abuse patient.[facility] HospitalIn the event this information is protected by the Federal Confidentiality of Alcohol and Drug Abuse Patient Records regulations: The Federal rules restrict any use of the information to criminally investigate or prosecute any alcohol or drug abuse patient.[facility] HospitalIn the event this information is protected by the Federal Confidentiality of Alcohol and Drug Abuse Patient Records regulations: The Federal rules restrict any use of the information to criminally investigate or prosecute any alcohol or drug abuse patient.[facility] HospitalIn the event this information is protected by the Federal Confidentiality of Alcohol and Drug Abuse Patient Records regulations: The Federal rules restrict any use of the information to criminally investigate or prosecute any alcohol or drug abuse patient.[facility] HospitalIn the event this information is protected by the Federal Confidentiality of Alcohol and Drug Abuse Patient Records regulations: The Federal rules restrict any use of the information to criminally investigate or prosecute any alcohol or drug abuse patient.[facility] HospitalIn the event this information is protected by the Federal Confidentiality of Alcohol and Drug Abuse Patient Records regulations: The Federal rules restrict any use of the information to criminally investigate or prosecute any alcohol or drug abuse patient.[facility] HospitalIn the event this information is protected by the Federal Confidentiality of Alcohol and Drug Abuse Patient Records regulations: The Federal rules restrict any use of the information to criminally investigate or prosecute any alcohol or drug abuse patient.[facility] HospitalIn the event this information is protected by the Federal Confidentiality of Alcohol and Drug Abuse Patient Records regulations: The Federal rules restrict any use of the information to criminally investigate or prosecute any alcohol or drug abuse patient.[facility] HospitalIn the event this information is protected by the Federal Confidentiality of Alcohol and Drug Abuse Patient Records regulations: The Federal rules restrict any use of the information to criminally investigate or prosecute any alcohol or drug abuse patient.[facility] HospitalIn the event this information is protected by the Federal Confidentiality of Alcohol and Drug Abuse Patient Records regulations: The Federal rules restrict any use of the information to criminally investigate or prosecute any alcohol or drug abuse patient.[facility] HospitalIn the event this information is protected by the Federal Confidentiality of Alcohol and Drug Abuse Patient Records regulations: The Federal rules restrict any use of the information to criminally investigate or prosecute any alcohol or drug abuse patient.[facility] HospitalIn the event this information is protected by the Federal Confidentiality of Alcohol and Drug Abuse Patient Records regulations: The Federal rules restrict any use of the information to criminally investigate or prosecute any alcohol or drug abuse patient.[facility] HospitalIn the event this information is protected by the Federal Confidentiality of Alcohol and Drug Abuse Patient Records regulations: The Federal rules restrict any use of the information to criminally investigate or prosecute any alcohol or drug abuse patient.[facility] HospitalIn the event this information is protected by the Federal Confidentiality of Alcohol and Drug Abuse Patient Records regulations: The Federal rules restrict any use of the information to criminally investigate or prosecute any alcohol or drug abuse patient.[facility] HospitalIn the event this information is protected by the Federal Confidentiality of Alcohol and Drug Abuse Patient Records regulations: The Federal rules restrict any use of the information to criminally investigate or prosecute any alcohol or drug abuse patient.[facility] HospitalIn the event this information is protected by the Federal Confidentiality of Alcohol and Drug Abuse Patient Records regulations: The Federal rules restrict any use of the information to criminally investigate or prosecute any alcohol or drug abuse patient.[facility] HospitalIn the event this information is protected by the Federal Confidentiality of Alcohol and Drug Abuse Patient Records regulations: The Federal rules restrict any use of the information to criminally investigate or prosecute any alcohol or drug abuse patient.[facility] HospitalIn the event this information is protected by the Federal Confidentiality of Alcohol and Drug Abuse Patient Records regulations: The Federal rules restrict any use of the information to criminally investigate or prosecute any alcohol or drug abuse patient.[facility] HospitalIn the event this information is protected by the Federal Confidentiality of Alcohol and Drug Abuse Patient Records regulations: The Federal rules restrict any use of the information to criminally investigate or prosecute any alcohol or drug abuse patient.[facility] HospitalIn the event this information is protected by the Federal Confidentiality of Alcohol and Drug Abuse Patient Records regulations: The Federal rules restrict any use of the information to criminally investigate or prosecute any alcohol or drug abuse patient.[facility] HospitalIn the event this information is protected by the Federal Confidentiality of Alcohol and Drug Abuse Patient Records regulations: The Federal rules restrict any use of the information to criminally investigate or prosecute any alcohol or drug abuse patient.[facility] HospitalIn the event this information is protected by the Federal Confidentiality of Alcohol and Drug Abuse Patient Records regulations: The Federal rules restrict any use of the information to criminally investigate or prosecute any alcohol or drug abuse patient.[facility] HospitalIn the event this information is protected by the Federal Confidentiality of Alcohol and Drug Abuse Patient Records regulations: The Federal rules restrict any use of the information to criminally investigate or prosecute any alcohol or drug abuse patient.[facility] HospitalIn the event this information is protected by the Federal Confidentiality of Alcohol and Drug Abuse Patient Records regulations: The Federal rules restrict any use of the information to criminally investigate or prosecute any alcohol or drug abuse patient.[facility] Reason for Visit (unrecogniz ed section and content) Reason Comments Refill Request Reason Comments Insulin Dependent Diabetes Mellitus Reason Onset Date Comments Refill Request 12/15/2021 Specialty Diagnoses / Procedures Referred By Mati seals Referred To Contact Diagnoses Type 1 diabetes mellitus without complication (HCC) Procedures CONSULT TO DIABETES EDUCATION OFFICE/OUTPATIENT [facility] 60-74 MINUTES Tyrone Gay APRN.LEI SELLER [id number] [address] Referral ID Status Reason Start Date Expiration Date V isits Requested Visits Authorized [id number] Closed PCP Requested Referral 02/08/2022 02/08/2023 1 1 Reason Comments [facility] Form Omnipod 5 Reason Comments Follow Up Insulin Dependent Diabetes Mellitus Reason Comments CGM with Physician's order [facility] Medical Referral ID Status Reason Start Date Expiration Date V isits Requested Visits Authorized [id number] Closed PCP Requested Referral 08/23/2022 08/23/2023 1 1 Reason Comments Insulin pump start follow up Reason Comments insulin pump question Reason Comments Leg Injury R fragoso injury x2 wee ks, possible skin infection Reason Comments Orders Reason Comments Med Change Request Reason Comments [facility] Reason Comments Results Reason Comments Follow Up Established Patient Insulin Dependent Diabetes Mellitus Reason Comments Patient Question Reason Comments Medical Release Request Reason Comments Received Outside Medical Records Care Teams (unrecognized sec tion and content) Supervisor Throwing Department Relationship Specialty Start Date End Date Grecia Reyes MD PCP - General Family Practice 03/15/14 Supervisor Throwing Department Relationship Specialty Start Date End Date Grecia Reyes MD PCP - General Family Practice 03/15/14 Supervisor Throwing Department Relationship Specialty Start Date End Date Grecia Reyes MD PCP - General Family Practice 03/15/14 Supervisor Throwing Department Relationship Specialty Start Date End Date Grecia Reyes MD PCP - General Family Practice 03/15/14 Supervisor Throwing Department Relationship Specialty Start Date End Date Grecia Reyes MD PCP - General Family Practice 03/15/14 Supervisor Throwing Department Relationship Specialty Start Date End Date Grecia Reyes MD PCP - General Family Medicine 03/15/14 Supervisor Throwing Department Relationship Specialty Start Date End Date Grecia Reyes MD PCP - General Family Medicine 03/15/14 Supervisor Throwing Department Relationship Specialty Start Date End Date Grecia Reyes MD PCP - General Family Medicine 03/15/14 Supervisor Throwing Department Relationship Specialty Start Date End Date Grecia Reyes MD PCP - General Family Medicine 03/15/14 Supervisor Throwing Department Relationship Specialty Start Date End Date Grecia Reyes MD PCP - General Family Medicine 03/15/14 Supervisor Throwing Department Relationship Specialty Start Date End Date Grecia Reyes MD PCP - General Family Medicine 03/15/14 Supervisor Throwing Department Relationship Specialty Start Date End Date Grecia Reyes MD PCP - General Family Medicine 03/15/14 Supervisor Throwing Department Relationship Specialty Start Date End Date Grecia Reyes MD PCP - General Family Medicine 03/15/14 Supervisor Throwing Department Relationship Specialty Start Date End Date Grecia Reyes MD PCP - General Family Medicine 03/15/14 Supervisor Throwing Department Relationship Specialty Start Date End Date Grecia Reyes MD PCP - General Family Medicine 03/15/14 Supervisor Throwing Department Relationship Specialty Start Date End Date Grecia Reyes MD PCP - General Family Medicine 03/15/14 Supervisor Throwing Department Relationship Specialty Start Date End Date Grecia Reyes MD PCP - General Family Medicine 03/15/14 Supervisor Throwing Department Relationship Specialty Start Date End Date Grecia Reyes MD PCP - General Family Medicine 03/15/14 Team Status: Active Member Role Status Dates Dr. Grecia Cesar MD Primary Care Provider Active Team Status: Inactive Member Role Status Dates Dr. Grecia Cesar MD Primary Care Provider, Referring Provider Active Jacklyn Sullivan WATCH SUPERVISOR, WATCH SUPERVISOR-C Attending Provider Active Team Status: Inactive Member Role Status Dates Dr. Grecia Cesar MD Primary Care Provider Active Jacklyn Sullivan WATCH SUPERVISOR, WATCH SUPERVISOR-C Attending Provider Active Team Status: Active Member Role Status Dates Dr. Grecia Cesar MD Primary Care Provider, Referring Provider Active Jacklyn Sullivan WATCH SUPERVISOR, WATCH SUPERVISOR-C Attending Provider, Other Pro vider Active Supervisor Throwing Department Relationship Specialty Start Date End Date Grecia Reyes MD PCP - General Family Medicine 03/15/14 Supervisor Throwing Department Relationship Specialty Start Date End Date Grecia Reyes MD PCP - General Family Medicine 03/15/14 Supervisor Throwing Department Relationship Specialty Start Date End Date Grecia Reyes MD PCP - General Family Medicine 03/15/14 Supervisor Throwing Department Relationship Specialty Start Date End Date Elizabeth Chavez MD [address] [place] [address] PCP - General Internal Medicine 01/12/24 Supervisor Throwing Department Relationship Specialty Start Date End Date Elizabeth Chavez MD [address] [place] [address] PCP - General Internal Medicine 01/12/24 Supervisor Throwing Department Relationship Specialty Start Date End Date Elizabeth Chavez MD [address] [facility] [address] [place] [address] PCP - General Internal Medicine 01/12/24 Supervisor Throwing Department Relationship Specialty Start Date End Date Elizabeth Chavez MD [address] [facility] [address] [place] [address] PCP - General Internal Medicine 01/12/24 Supervisor Throwing Department Relationship Specialty Start Date End Date Elizabeth Chavez MD [address] [facility] [address] [place] [address] PCP - General Internal Medicine 01/12/24 Supervisor Throwing Department Relationship Specialty Start Date End Date Elizabeth Chavez MD [address] [facility] [address] [place] [address] PCP - General Internal Medicine 01/12/24 Supervisor Throwing Department Relationship Specialty Start Date End Date Elizabeth Chavez MD [address] [facility] [address] [place] [address] PCP - General Internal Medicine 01/12/24 Supervisor Throwing Department Relationship Specialty Start Date End Date Elizabeth Chavez MD [address] [facility] [address] [place] [address] PCP - General Internal Medicine 01/12/24 Goals (unrecognized section and content) Goals may be documented in a n alternate sectionGoals may be documented in an alternate sectionGoals may be documented in an alternate section (unrecognized sect ion and content) No Status Records FoundNo Status Records Found INFORMATION SOURCE (unrecogn ized section and content) DATE CREATED AUTHOR 11/21/2024 [facility] DATE CREATED AUTHOR AUTHOR'S CATRACHITO NIX 02/21/2025 [facility] FOR RECORDS PERTAINING TO PATIENTS WHO ARE OR HAVE BEEN ENROLLED IN A CHEMICAL DEPENDENCY/SUBSTANCEABUSE PROGRAM, SOME INFORMATION MAY BE OMITTED. This clinical summary was aggregated from multiple sources. Caution should be exercised in using it in the provision of clinical care. This summary normalizes information from multiple sources, and as a consequence, information in this document may materially change the coding, format and clinical context of patient data. In addition, data may be omitted in some cases. CLINICAL DECISIONS SHOULD BE BASED ON THE PRIMARY CLINICAL RECORDS. [facility] [facility]. provides no warranty or guarantee of the accuracy or completeness of information in this document.
[2025-02-22] MEDS: Lactated Ringers 1,000 ML 15 ML IV (06:55)
--- NOTE | 2025-02-22 07:08 | PCM.PRE.AN2 ---
ASA Classification* ASA Classification ASA Classification: 2 Assessment & Plan Anesthesia* Anesthesia Assessment Anesthesia Assessment: Discussed sedation and/or anesthesia options, risks, benefits, and alternatives with patient/parents/legal guardian/POA. Questions invited. The patient/parents/legal guardian/POA seems to understand and agrees to proceed with anesthesia plan. Reviewed the physical assessment, medical history, allergy history and patient home medications list prior to surgery/procedure/anesthetic and documented any changes. Performed airway and anesthesia risk assessments. Anesthesia Type Anesthesia Type: MAC History Source History Obtained from:: Patient and Chart Anesthesia Focused Assessment* Temperature: 98.3 F Pulse Rate: 71 Blood Pressure: 156/80 Respiratory Rate: 18 Pulse Ox: 96 Oxygen Delivery Method: Room Air Airway Assessment Mouth opens: >3 cm Mallampati Score: IV Teeth Condition: Caps/Crowns (Teeth #7, 8, 9 and 10 are all capped. All are tight.) Neck Range of motion (ROM): Full ROM Comment: Short thyromental distance. Labs Anesthesia Preop lab: CBC WBC 7.5 K/mm3 (4.4-11.0) 07/23/17 12:41 07/23/17 RBC 4.48 M/mm3 (4.6-6.2) L 07/23/17 12:41 07/23/17 Hgb 14.2 g/dl (13.0-16.5) 07/23/17 12:41 07/23/17 Hct 40.9 % (40-54) 07/23/17 12:41 07/23/17 Plt Count 157 K/mm3 (150-450) 07/23/17 12:41 07/23/17 CHEMISTRY Potassium 3.6 mmol/L (3.5-5.1) 09/03/19 10:25 09/03/19 Sodium 140 mmol/L (136-145) 09/03/19 10:25 09/03/19 BUN 19 mg/dL (7-18) H 09/03/19 10:25 09/03/19 Creatinine 1.01 mg/dL (0.70-1.30) 09/03/19 10:25 09/03/19 Glucose 181 mg/dL (74-106) H 09/03/19 10:25 09/03/19 POC Glucose 116 mg/dL (70-110) H 03/02/17 10:31 03/02/17 TSH 1.12 uIU/mL (0.358-3.74) 07/23/17 12:41 07/23/17 COAG Pre-Assessment Diagnosis/Proposed Procedure Planned Operative Procedure(s): COLONOSCOPY-OA Anesthesia History 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 When Was Last Pacemaker Check QUESTION #4 FULL TEXT: You/Your Family Experience fever (hyperthermia) with Anesthesia Last Oral Intake Last Oral intake: Last Oral Intake NPO since 20:00 02/22/25 06:47 Meds taken in AM with sips of Yes 02/22/25 06:47 water? Meds patient instructed to take am of surgery Any additional information?: Yes Meds taken in AM with sips of water?: Yes Meds patient instructed to take am of surgery: Valsartan and amlodipine PONV PONV - band saw operator cake cutting: PONV - band saw operator cake cutting Female No 02/19/25 11:55 HX of Motion Sickness No 02/19/25 11:55 HX of N/V After Surgery No 02/19/25 11:55 Non-Smoker Yes 02/19/25 11:55 Duration of Surgery greater No 02/19/25 11:55 than 60 minutes Number of Risk Factors 1 02/19/25 11:55 PONV Score Low Risk 02/19/25 11:55 Height & Weight Height & Weight: Anesthesia: Height & Weight Height 6 ft 1 in 02/22/25 06:47 Weight: 106 kg 02/22/25 06:47 Body Mass Index (BMI) 30.8 02/22/25 06:47 Respiratory Assessment Respiratory Assessment - 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 Has anyone observed you stop No 02/19/25 11:55 breathing during sleep? STOP Results Negative 02/19/25 11:55 QUESTION #5 FULL TEXT : Do you snore loudly (louder than talking or can be heard through closed doors)? 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 Specify any problems Hx of Preganancy in last 3 N/A 02/19/25 11:55 Months Nurse Filling Out Transfusion VCHRISTIN 02/19/25 11:55 & Questions: Date: 02/19/25 02/19/25 11:55 Time: 11:56 02/19/25 11:55 Patient unable to answer at this time (ie. 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: /Reproductive Hx- band saw operator cake cutting Hx Now No 02/19/25 11:55 Gestational Age (in weeks): EDC: Hx Hx Para Hx Section SAB No 02/19/25 11:55 Active Medications Active Medications: Current Medications Generic Name Dose Route Start Last Admin Trade Name Freq PRN Reason Stop Dose Admin Lactated Ringer's 1,000 mls @ 15 mls/hr 02/22/25 06:30 02/22/25 06:55 IV 15 mls/hr .Q48H IRWIN Administration PFSH Medical History Wears glasses Insulin dependent diabetes mellitus Diabetes Gastric reflux Non-smoker History of edema Hypertension Type 1 diabetes Home Medications Medication Instructions Recorded Last Taken Type insulin lispro 100 unit/mL 1 sliding scale dose subcut 09/29/20 02/21/25 History subcutaneous cartridge (Humalog USEASDIRECTD U-100 Insulin) amlodipine 5 mg tablet 5 mg PO DAILY 02/19/25 02/22/25 History insulin pump cart,auto,BT,G6/7 02/19/25 Unknown History (Omnipod 5 G6-G7 Pods (Gen 5) subcutaneous cartridge) magnesium 250 mg tablet 250 mg PO DAILY 02/19/25 02/20/25 History multivitamin (Daily Multi-Vitamin 1 tab PO DAILY 02/19/25 02/15/25 History tablet) valsartan 320 mg tablet 320 mg PO DAILY 02/19/25 02/22/25 History Allergy/AdvReac Type Severity Reaction Status Date / Time amoxicillin (From Augmentin) Allergy Rash Verified 02/22/25 06:46 cephalexin Allergy Rash Verified 02/22/25 06:46 clavulanic acid (From Allergy Rash Verified 02/22/25 06:46 Augmentin) Penicillins (PCN) Allergy Rash Verified 02/22/25 06:46 Surgical History Hx laparoscopic cholecystectomy Hx of tonsillectomy Hx of hernia repair Social History Smoking Status: Never smoker Review of Systems (Anesthesia) ROS Narrative System reviewed and no additional complaints, except as documented.
--- NOTE | 2025-02-22 07:17 | H&P.OPEN ---
HPI - General HPI Narrative ARGENTINA LANCE, is a 69 M who presents for screening colonoscopy. His last colonoscopy was 10 years ago and was normal. He denies any abdominal pain or blood in the stool. [facility] Medical History Wears glasses Insulin dependent diabetes mellitus Diabetes Gastric reflux Non-smoker History of edema Hypertension Type 1 diabetes Home Medications Medication Instructions Recorded Last Taken Type insulin lispro 100 unit/mL 1 sliding scale dose subcut 09/29/20 02/21/25 History subcutaneous cartridge (Humalog USEASDIRECTD U-100 Insulin) amlodipine 5 mg tablet 5 mg PO DAILY 02/19/25 02/22/25 History insulin pump cart,auto,BT,G6/7 02/19/25 Unknown History (Omnipod 5 G6-G7 Pods (Gen 5) subcutaneous cartridge) magnesium 250 mg tablet 250 mg PO DAILY 02/19/25 02/20/25 History multivitamin (Daily Multi-Vitamin 1 tab PO DAILY 02/19/25 02/15/25 History tablet) valsartan 320 mg tablet 320 mg PO DAILY 02/19/25 02/22/25 History Allergy/AdvReac Type Severity Reaction Status Date / Time amoxicillin (From Augmentin) Allergy Rash Verified 02/22/25 06:46 cephalexin Allergy Rash Verified 02/22/25 06:46 clavulanic acid (From Allergy Rash Verified 02/22/25 06:46 Augmentin) Penicillins (PCN) Allergy Rash Verified 02/22/25 06:46 Surgical History Hx laparoscopic cholecystectomy Hx of tonsillectomy Hx of hernia repair Social History Smoking Status: Never smoker Past Medical/Surgical History Planned Operation Planned Operative Procedure(s): COLONOSCOPY-OA S.O.S: No Previous Hospitalizations/Surgeries HX Hospitalizations: No HX of Surgeries: [facility] COLONOSCOPY 2015 TONSILS Any Problems With Anesthesia: No You/Your Family Experience Fever (Hyperthermia) With Anes: No Cholinesterase deficiency: No Cardiovascular Hx Chest Pain within Last 2 months: No Hx of Irregular Heartbeat and/or Afib: No Hx Heart Attack: No Hx Congestive Heart Failure: No Hx Rheumatic Fever: No Hx Hypertension: No Hx Internal Defibrillator: No Hx Pacemaker: No Hx Cardiac Catheterization: No Hx Cardiac Surgery/Stents/Etc.: No Hx Stress Test: No Hx Pain in Legs when Walking/Leg Cramps: No Respiratory Chronic Cough: No HX of Shortness of Breath: No (ABLE TO WALK 2 FLIGHTS OF STAIRS WITHOUT SOB) Hoarseness: No Hx Chronic Obstructive Pulmonary Disease (COPD): No Hx Asthma: No Hx Emphysema: No Hx Sleep Apnea: No Hx Respiratory Tract Infection/Cold (presently): No Do You Snore Loudly (louder than talking or can be heard): No Do You Often Feel Tired/ Fatigued/ Sleepy Dring Daytime?: No Has Anyone Observed You Stop Breathing During Sleep?: No Result (for STOP score): Negative Hx Smoking: No Smoking Status: Never smoker Gastrointestinal Hx Gastrointestinal Disorders: No Hx Gastrointestinal Bleed: No Hx Ulcer: No Hx Hiatal Hernia: No Difficulty Chewing/Swallowing: No Special diet followed at home: Yes (DIABETIC) Hx Unplanned Weight Loss of 20#: No HX Unplanned Weight Gain of 20#: No Neurological Hx Seizures: No HX Syncope/Blackout Spells/Unconsciousness: Yes (FELL OFF ROOF. 16 FT 4 YRS AGO) Hx Transient Ischemic Attacks (TIA): No Hx Multiple Sclerosis: No Hx Parkinson's Disease: No Hx Head/Neck Injury: No Hx Headaches: No Hx Back Injury/Pain: No Recent Onset of Speech Difficulty: No Restless Legs: No Does patient have nerve stimulator: No Blood Disorder Hx Leukemia: No Bleeding Tendencies: No Hx Deep Vein Thrombosis: No Hx High Cholesterol: No Blood Transmitted Disease: No Hx Hepatitis: No Hx Cirrhosis: No Hx Anemia: No Hx Blood Disorders: No Reproduction : No Genitourinary Hx Renal Disease: No Musculoskeletal Hx Arthritis: No Hx Rheumatoid Arthritis: No Hx Gout: No Recent Onset of an Orthopedic Problem: No Endocrine Hx Diabetes: Yes Insulin: No Thyroid Disease: No Hx Steroid Therapy: No Psycho/Social Hx Substance Use: No Hx Alcohol Use: No Hx Anxiety: No Hx Depression: No Mental Illness: No Hx Dementia: No Miscellaneous Hx Cancer: No Recent Exposure to Contagious Disease: No Hx of C-Diff: No Any Loose Teeth: No Allergies amoxicillin (From Augmentin) Allergy (Verified 02/22/25 06:46) Rash cephalexin Allergy (Verified 02/22/25 06:46) Rash clavulanic acid (From Augmentin) Allergy (Verified 02/22/25 06:46) Rash Penicillins (PCN) Allergy (Verified 02/22/25 06:46) Rash Discharge Is Pt Admitted From a [facility], or a [facility]: No After D/C, Where Do you Plan to Go: Return Home From the [facility] History Number of Risk Factors: 1 Vital Signs Vital Signs Vital Signs: 02/22/25 06:47 02/22/25 06:47 02/22/25 07:14 Temperature 98.3 F 98.3 F Temperature Source Temporal Pulse Rate 71 71 Respiratory Rate 18 18 Respiratory Pattern Normal Blood Pressure 156/80 H 156/80 H Blood Pressure Mean 105 Blood Pressure Source Monitor Blood Pressure Position Semi-Fowlers Blood Pressure Location Left Arm Pulse Ox 96 96 Oxygen Delivery Method Room Air Room Air Weight Weight: 233 lb 11.04 oz Body Mass Index (BMI) 30.8 Physical Exam Const alert and oriented x3 HEENT normocephalic Eyes PERRL Resp normal respiratory effort and normal air movement Cardio regular rate and regular rhythm GI soft to palpation, non-tender and non-distended Extremity normal to inspection Assessment & Plan Assessment/Plan (1) Screen for colon cancer: PLAN: I explained endoscopy in detail to the patient. I explained the risks including but not limited to stroke or heart attack with anesthesia, perforation of the GI tract, bleeding, infection. I explained that any of these could necessitate further emergency surgery. The patient understands and all questions were answered sufficiently. The patient wishes to proceed with procedure. Troy Monsivais MD Pager: [facility] [address] [place] [address], [address] [place] [address] Office: Surgery Risks - Colonoscopy Risks Include but are not Limited To: Risks include but are not limited to: Bleeding, perforation requiring further surgery, inability to complete colonoscopy requiring barium enema.
--- NOTE | 2025-02-22 07:55 | OP.COLON_ITS ---
Patient Name: Yaw Galvez Procedure Date: 02/22/2025 7:27 AM Date of : 1955 Age: 69 Procedure: Colonoscopy Indications: Screening for colorectal malignant neoplasm Providers: Troy Monsivais MD Referring MD: Elizabeth Chavez Md Medicines: Propofol per Anesthesia Patient Profile: This is a 69 year old male. Refer to note in patient chart for documentation of history and physical. Last Colonoscopy: 10 years ago. Complications: No immediate complications. Procedure: Pre-Anesthesia Assessment: - Prior to the procedure, a History and Physical was performed, and patient medications and allergies were reviewed. The patient's tolerance of previous anesthesia was also reviewed. The risks and benefits of the procedure and the sedation options and risks were discussed with the patient. All questions were answered, and informed consent was obtained. Prior Anticoagulants: The patient has taken no anticoagulant or antiplatelet agents. After reviewing the risks and benefits, the patient was deemed in satisfactory condition to undergo the procedure. After I obtained informed consent, the scope was passed under direct vision. Throughout the procedure, the patient's blood pressure, pulse, and oxygen saturations were monitored continuously. The Colonoscope was introduced through the anus and advanced to the cecum, identified by appendiceal orifice and ileocecal valve. The colonoscopy was performed without difficulty. The patient tolerated the procedure well. The quality of the bowel preparation was good. The ileocecal valve, appendiceal orifice, and rectum were photographed. Scope In: 7:41:35 AM Scope Withdrawal Time 0 hours 6 minutes 3 seconds Scope Out: 7:50:52 AM Total Procedure Duration Time 0 hours 9 minutes 17 seconds Findings: The entire examined colon appeared normal on direct and retroflexion views. Impression: - The entire examined colon is normal on direct and retroflexion views. - No specimens collected. Recommendation: - Discharge patient to home. - Resume previous diet. - Continue present medications. - Repeat colonoscopy is not recommended due to current age (66 years or older) for screening purposes. Procedure Code(s): --- Professional --- 57367, Colonoscopy, flexible; diagnostic, including collection of specimen(s) by brushing or washing, when performed (separate procedure) Diagnosis Code(s): --- Professional --- Z12.11, Encounter for screening for malignant neoplasm of colon CPT copyright 2021 [employer]. All rights reserved. The codes documented in this report are preliminary and upon printer's devil review may be revised to meet current compliance requirements. Troy Monsivais MD 02/22/2025 7:54:33 AM This report has been signed electronically. Number of Addenda: 0 Note Initiated On: 02/22/2025 7:27 AM
--- NOTE | 2025-02-22 07:55 | OP.CCLET_ITS ---
02/22/2025 Elizabeth Chavez Md Re : Colonoscopy procedure for Yaw Galvez Dear Kathy This procedure was performed on Saturday, February 22, 2025. My impressions and recommendations are as follows: Impressions : - The entire examined colon is normal on direct and retroflexion views. - No specimens collected. Recommendations : - Discharge patient to home. - Resume previous diet. - Continue present medications. - Repeat colonoscopy is not recommended due to current age (66 years or older) for screening purposes. My findings are described in the full procedure note, which is enclosed. If I can be of further assistance, please feel free to contact me at Doctor phone number(s): , Work: . Sincerely, Troy Monsivais MD 02/22/2025 7:54:33 AM This report has been signed electronically.
--- NOTE | 2025-02-22 07:58 | PCM.POST.ANE ---
Anesthesia: Postop Eval I Current Vital Signs Temperature: 97.8 F Pulse Rate: 57 Blood Pressure: 92/59 Respiratory Rate: 16 Pulse Ox: 96 Oxygen Delivery Method: Room Air Assessment Airway patent: Yes Spontaneous unlabored respirations: Yes Mental status: Awake and Calm nausea: No Vomiting: No Anesthesia Complication: No Fluid Hydration Crystalloid volume administer (ml): 400 Total IV fluid infused: 400 Progress Note Anesthesia document: Postop Eval 1 completed: Yes
--- NOTE | 2025-02-22 10:45 | PCM.POSTANE2 ---
Anesthesia Postop Eval I Sum Postop Eval Completion status Anesthesia document: Postop Eval 1 completed: Yes Anesthesia Postop Eval I Summary Anesthesia Postop Eval I Summary: Anesthesia Postop Eval I: Assessment Summary Airway patent Yes 02/22/25 07:59 [email or web address] Spontaneous unlabored Yes 02/22/25 07:59 [email or web address] respirations Mental status Awake,Calm 02/22/25 07:59 [email or web address] nausea No 02/22/25 07:59 [email or web address] Vomiting No 02/22/25 07:59 [email or web address] Anesthesia Postop Eval I: Fluid Summary Crystalloid volume administer 400 02/22/25 07:59 [email or web address] (ml) Colloids volume administered ( ml) Blood Product volume administered (ml) Total IV fluid infused 400 02/22/25 07:59 [email or web address] Anesthesia Postop Eval I: Summary Notes Anesthesia Complication No 02/22/25 07:59 [email or web address] Anesthesia Complication Comment: Post-operative progress note Anesthesia: Postop Eval II Evaluation Mental status: Awake and Calm Pain Level: 0 nausea: No Vomiting: No Complications Anesthesia Complication: No
== END 2025-02-22 08:33 | disposition home or self-care (01) ==
LOC: EN 06:19 → AC 06:22
PROVIDERS: PCP Family Medicine; Referring Provider Family Medicine; Visit Provider Surgery
PROC: 0DJD8ZZ Inspection of Lower Intestinal Tract, Via Natural or Artificial Opening Endoscopic (ICD-10-PCS; CPT 45378; principal; 2025-02-22 07:25)
DX: Z12.11 Encounter for screening for malignant neoplasm of colon (principal); E10.9 Type 1 diabetes mellitus without complications; Z79.4 Long term (current) use of insulin; Z96.41 Presence of insulin pump (external) (internal); Z79.899 Other long term (current) drug therapy; I10 Essential (primary) hypertension; K21.9 Gastro-esophageal reflux disease without esophagitis
CPT/HCPCS: G0121; 82962; J2405